=== PATIENT | female | born 1955 | race African-American/Black ===

== ENCOUNTER 2016-11-30 15:55 | Inpatient (IN) | payer MEDICAID, MEDICARE ==
[~2016-11-30] VITALS: Ht 162.6 cm; Wt 56.7 kg
[~2016-11-30 15:55] MED LIST: CINA30 PO; CLON0.1T PO; DIPH50TA19 PO; HYDR100T26 PO; LEVO150T8 PO; MINO2.5T19 PO; NEPVIT PO; SEVE800T8 PO
[2016-11-30 20:50] LABS: CHLORIDE 102 mEq/L (98-107)
[2016-11-30 20:52] LABS: BASOPHILS % 1.5 % (0.0-2.0); EOSINOPHILS % 0.6 % (0.0-5.0); HEMATOCRIT. 29.1 % (36.0-48.0); HEMOGLOBIN. 9.6 g/dL (12.0-16.0); LYMPHOCYTES % 20.3 % (20.0-50.0); MEAN CORPUSCULAR HEMOGLOBIN 28.3 pg (28.0-32.0); MEAN CORPUSCULAR VOLUME 85.7 fL (81.0-99.0); MEAN PLATELET VOLUME 8.2 fl (7.4-10.4); MONOCYTES % 12.4 % (2.0-8.0); NEUTROPHILS % 65.2 % (40.0-76.0); PLATELET 180 x1000/uL (130-400); RED BLOOD CELL COUNT 3.39 mill/uL (4.2-5.4); RED CELL DISTRIBUTION WIDTH 15.6 % (11.6-14.6)
[2016-11-30 20:53] LABS: CARBON DIOXIDE 31 mEq/L (21-32); INR 1.1; PROTHROMBIN TIME 11.3 sec (9.4-11.6)
[2016-12-01] VITALS (7 sets, daily range): BP systolic 120–156; BP diastolic 55–85
[2016-12-01] MEDS ORDERED: MORPHINE SULFATE 2 MG/ML CPJ (NOT FOR IM USE) IV PRN (00:30)
[2016-12-01] MEDS ORDERED: ACETAMINOPHEN 325MG TABLET PO PRN (00:30)
[2016-12-01] MEDS ORDERED: DIPHENHYDRAMINE 50MG/ML VIAL IV PRN (00:30)
[2016-12-01] MEDS ORDERED: HYDROCODONE/ACETAMINOPHEN 5/325MG TABLET PO PRN (00:30)
[2016-12-01] MEDS: METHYLPREDNISOLONE SOD SUCC 40 MG/ML VIAL IV SCH ×4 (06:18→23:33)
[2016-12-01] MEDS: LEVOTHYROXINE SODIUM 150MCG TABLET PO SCH (06:18)
[2016-12-01] MEDS: MORPHINE SULFATE 4 MG/ML CPJ (NOT FOR IM USE) IV PRN ×3 (06:20→23:25)
[2016-12-01 07:48] LABS: INR 1.1; PROTHROMBIN TIME 11.4 sec (9.4-11.6)
[2016-12-01 08:11] LABS: BASOPHILS % 1.2 % (0.0-2.0); EOSINOPHILS % 0.7 % (0.0-5.0); HEMOGLOBIN. 9.2 g/dL (12.0-16.0); LYMPHOCYTES % 22.8 % (20.0-50.0); MEAN CORPUSCULAR HEMOGLOBIN 28.5 pg (28.0-32.0); MEAN CORPUSCULAR VOLUME 86.8 fL (81.0-99.0); MEAN PLATELET VOLUME 8.4 fl (7.4-10.4); MONOCYTES % 10.1 % (2.0-8.0); NEUTROPHILS % 65.2 % (40.0-76.0); PLATELET 180 x1000/uL (130-400); RED BLOOD CELL COUNT 3.23 mill/uL (4.2-5.4); RED CELL DISTRIBUTION WIDTH 15.1 % (11.6-14.6)
[2016-12-01] MEDS: CLONIDINE 0.1MG TABLET PO SCH (09:39)
[2016-12-01] MEDS: FOLIC ACID/VITAMIN B COMP W-C TABLET PO SCH (09:40)
[2016-12-01] MEDS: CINACALCET HCL 30MG TABLET PO SCH (09:40)
[2016-12-01] MEDS: SEVELAMER CARBONATE 800 MG TABLET PO SCH ×3 (09:40→16:53)
[2016-12-01] MEDS: HYDRALAZINE HCL 100MG TABLET PO SCH ×3 (09:41→16:53)
[2016-12-01] MEDS: MINOXIDIL 2.5MG TABLET PO SCH (09:43)
[2016-12-01] MEDS ORDERED: VANCOMYCIN 1 G PREMIX 200 ML IV SCH (16:30)
[2016-12-01] MEDS: PANTOPRAZOLE 40MG DR TABLET PO SCH (23:25)
[2016-12-02] VITALS: BP 120/59
[2016-12-02] MEDS: MORPHINE SULFATE 4 MG/ML CPJ (NOT FOR IM USE) IV PRN ×2 (03:42→11:17)
[2016-12-02 03:45] VITALS: BP 117/52
[2016-12-02] MEDS: METHYLPREDNISOLONE SOD SUCC 40 MG/ML VIAL IV SCH ×3 (06:54→17:43)
[2016-12-02] MEDS: LEVOTHYROXINE SODIUM 150MCG TABLET PO SCH (06:54)
[2016-12-02] MEDS: PANTOPRAZOLE 40MG DR TABLET PO SCH (06:56)
[2016-12-02 07:35] LABS: MEAN CORPUSCULAR HEMOGLOBIN 28.5 pg (28.0-32.0); MEAN PLATELET VOLUME 8.6 fl (7.4-10.4); PLATELET 170 x1000/uL (130-400); RED BLOOD CELL COUNT 3.14 mill/uL (4.2-5.4); RED CELL DISTRIBUTION WIDTH 15.6 % (11.6-14.6)
[2016-12-02] MEDS: HYDRALAZINE HCL 100MG TABLET PO SCH ×3 (08:44→23:04)
[2016-12-02] MEDS: FOLIC ACID/VITAMIN B COMP W-C TABLET PO SCH (08:44)
[2016-12-02] MEDS: SEVELAMER CARBONATE 800 MG TABLET PO SCH ×3 (08:44→17:43)
[2016-12-02] MEDS: CINACALCET HCL 30MG TABLET PO SCH (08:44)
[2016-12-02 08:45] VITALS: BP 111/44
[2016-12-02] MEDS: MINOXIDIL 2.5MG TABLET PO SCH (08:45)
[2016-12-02] MEDS: CLONIDINE 0.1MG TABLET PO SCH (08:45)
[2016-12-02 11:15] VITALS: BP 148/76
[2016-12-02] MEDS ORDERED: CINACALCET HCL 60MG TABLET PO SCH (12:13)
[2016-12-02 17:19] VITALS: BP 115/46
[2016-12-02 20:00] VITALS: BP 123/50
[2016-12-02 20:08] LABS: PLATELET ESTIMATE NORMAL
[2016-12-03] VITALS: BP 112/46
[2016-12-03] MEDS: METHYLPREDNISOLONE SOD SUCC 40 MG/ML VIAL IV SCH ×3 (02:29→12:08)
[2016-12-03 04:00] VITALS: BP 116/50
[2016-12-03] MEDS: HYDRALAZINE HCL 100MG TABLET PO SCH ×2 (06:00→13:43)
[2016-12-03 08:00] VITALS: BP 111/55
[2016-12-03] MEDS: SEVELAMER CARBONATE 800 MG TABLET PO SCH ×2 (08:32→13:40)
[2016-12-03] MEDS: FOLIC ACID/VITAMIN B COMP W-C TABLET PO SCH (08:33)
[2016-12-03] MEDS ORDERED: FAMOTIDINE 20MG TABLET PO SCH (09:00)
[2016-12-03] MEDS: MINOXIDIL 2.5MG TABLET PO SCH (10:56)
[2016-12-03] MEDS: CLONIDINE 0.1MG TABLET PO SCH (10:56)
[2016-12-03] MEDS: LEVOTHYROXINE SODIUM 150MCG TABLET PO SCH (10:56)
[2016-12-03 12:00] VITALS: BP 98/51
[2016-12-03] MEDS ORDERED: VANCOMYCIN 750 MG PREMIX 150 ML IV NR (13:00)
[2016-12-03 14:48] VITALS: BP 98/51
== END 2016-12-03 15:34 | disposition home or self-care (01) | DRG 314 ==
LOC: ER 15:55 → 6EST 19:44 → ENRESERV 21:02
PROVIDERS: ADMIT Internal Medicine Nephrology; ATTEND Internal Medicine Nephrology
PROC: 5A1D00Z (ICD-10-PCS; principal; 2016-12-02)
DX: T82.7XXA Infection and inflammatory reaction due to other cardiac and vascular devices, implants and grafts, initial encounter (principal); N18.6 End stage renal disease; I13.2 Hypertensive heart and chronic kidney disease with heart failure and with stage 5 chronic kidney disease, or end stage renal disease; E46 Unspecified protein-calorie malnutrition; I50.30 Unspecified diastolic (congestive) heart failure; E03.9 Hypothyroidism, unspecified; B19.20 Unspecified viral hepatitis C without hepatic coma; D63.1 Anemia in chronic kidney disease; Y83.8 Other surgical procedures as the cause of abnormal reaction of the patient, or of later complication, without mention of misadventure at the time of the procedure; Z91.018 Allergy to other foods; Z82.49 Family history of ischemic heart disease and other diseases of the circulatory system; Z83.3 Family history of diabetes mellitus; Z82.5 Family history of asthma and other chronic lower respiratory diseases; Z99.2 Dependence on renal dialysis; Z88.0 Allergy status to penicillin; Z88.6 Allergy status to analgesic agent; Z88.8 Allergy status to other drugs, medicaments and biological substances; Z91.041 Radiographic dye allergy status; Z91.040 Latex allergy status; Z91.013 Allergy to seafood; Y92.89 Other specified places as the place of occurrence of the external cause; Z68.21 Body mass index [BMI] 21.0-21.9, adult
CPT/HCPCS: 36415; 74000; 80048; 80053; 80202; 84443; 85025; 85610; 87040; 93005; 93306; 93971; 99285; C1893; J2270; J2920; J3370; J7030

== ENCOUNTER 2016-12-28 09:29 | Inpatient (IN) | payer MEDICARE ==
[~2016-12-28] VITALS: Ht 162.6 cm; Wt 59.2 kg
[2016-12-28] MEDS ORDERED: ONDANSETRON HCL 4MG/2ML VIAL IV STA (10:29)
[2016-12-28] MEDS ORDERED: KETOROLAC 30MG/ML VIAL IV STA (10:29)
[2016-12-28 12:12] LABS: EOSINOPHILS % 1.6 % (0.0-5.0); HEMATOCRIT. 37.2 % (36.0-48.0); HEMOGLOBIN. 12.2 g/dL (12.0-16.0); LYMPHOCYTES % 23.2 % (20.0-50.0); MEAN CORPUSCULAR HEMOGLOBIN 28.8 pg (28.0-32.0); MEAN CORPUSCULAR VOLUME 88.1 fL (81.0-99.0); MEAN PLATELET VOLUME 8.2 fl (7.4-10.4); MONOCYTES % 11.4 % (2.0-8.0); NEUTROPHILS % 62.8 % (40.0-76.0); PLATELET 161 x1000/uL (130-400); RED BLOOD CELL COUNT 4.23 mill/uL (4.2-5.4); RED CELL DISTRIBUTION WIDTH 17.4 % (11.6-14.6)
[2016-12-28 12:16] LABS: CHLORIDE 107 mEq/L (98-107)
[2016-12-28 12:18] LABS: INR 1.1; PROTHROMBIN TIME 11.1 sec (9.4-11.6)
[2016-12-28 12:26] LABS: CARBON DIOXIDE 26 mEq/L (21-32)
[2016-12-28] MEDS ORDERED: SODIUM BICARBONATE 8.4% 1 MEQ/ML 50ML SYR IV ONE (12:30)
[2016-12-28] MEDS ORDERED: CALCIUM GLUCONATE 1,000 MG in DEXT 5% WATER 100 ML IV ONE (12:30)
[2016-12-28] MEDS ORDERED: INSULIN REGULAR (HUMULIN R) 300UNITS/3ML IV ONE (12:30)
[2016-12-28] MEDS ORDERED: DEXTROSE 50% WATER 50ML SYRINGE IV ONE (12:30)
[2016-12-28] MEDS: ALBUTEROL (0.083%) 2.5MG/3ML NEB HHN SCH ×3 (12:40→13:40)
[2016-12-28] MEDS ORDERED: CLONIDINE 0.1MG TABLET PO PRN (15:15)
[2016-12-28] MEDS ORDERED: ONDANSETRON HCL 4MG/2ML VIAL IV PRN (15:15)
[2016-12-28] MEDS ORDERED: ACETAMINOPHEN 325MG TABLET PO PRN (15:15)
[2016-12-28] MEDS ORDERED: CLONIDINE 0.1MG TABLET PO SCH (22:40)
[2016-12-28] MEDS ORDERED: ENOXAPARIN 30MG/0.3ML SYR SUBCUT SCH (22:44)
[2016-12-28 23:00] VITALS: BP 149/69
[2016-12-29] VITALS: BP 106/64
[2016-12-29 05:12] VITALS: BP 152/80
[2016-12-29] MEDS ORDERED: DEXTROSE 50% WATER 50ML SYRINGE IV PRN (05:45)
[2016-12-29] MEDS: INSULIN LISPRO 100 UNITS/ML SUBCUT SCH ×3 (06:00→18:00)
[2016-12-29] MEDS: CLONIDINE 0.1MG TABLET PO SCH ×3 (06:00→22:00)
[2016-12-29] MEDS: BLOOD SUGAR DIAGNOSTIC STRIP TEST SCH ×3 (06:10→18:00)
[2016-12-29] MEDS: DEXT 5%/0.45% NACL 1000ML 1,000 ML IV SCH (06:10)
[2016-12-29 06:27] LABS: BASOPHILS % 0.5 % (0.0-2.0); EOSINOPHILS % 0.2 % (0.0-5.0); HEMATOCRIT. 36.1 % (36.0-48.0); HEMOGLOBIN. 12.1 g/dL (12.0-16.0); LYMPHOCYTES % 14.3 % (20.0-50.0); MEAN CORPUSCULAR VOLUME 86.8 fL (81.0-99.0); MEAN PLATELET VOLUME 8.7 fl (7.4-10.4); MONOCYTES % 9.9 % (2.0-8.0); NEUTROPHILS % 75.1 % (40.0-76.0); PLATELET 163 x1000/uL (130-400); RED BLOOD CELL COUNT 4.16 mill/uL (4.2-5.4); RED CELL DISTRIBUTION WIDTH 17.1 % (11.6-14.6)
[2016-12-29 07:43] LABS: AMYLASE 193 IU/L (25-115); CARBON DIOXIDE 25 mEq/L (21-32); CHLORIDE 97 mEq/L (98-107)
[2016-12-29 07:51] LABS: TROPONIN I 0.02 ng/mL (0.00-0.04)
[2016-12-29 08:00] VITALS: BP 158/76
[2016-12-29] MEDS ORDERED: CLONIDINE 0.1MG TABLET PO SCH (09:00)
[2016-12-29] MEDS: ENOXAPARIN 30MG/0.3ML SYR SUBCUT SCH (09:52)
[2016-12-29 12:30] VITALS: BP 159/74
[2016-12-29 16:00] VITALS: BP 154/79
[2016-12-29] MEDS: HYDRALAZINE HCL 50MG TABLET PO SCH ×2 (18:40→22:17)
[2016-12-29 20:00] VITALS: BP 115/62
[2016-12-29] MEDS: AMLODIPINE 5MG TABLET PO SCH (22:16)
[2016-12-30] VITALS: BP 134/75
[2016-12-30] MEDS: BLOOD SUGAR DIAGNOSTIC STRIP TEST SCH ×5 (00:07→20:57)
[2016-12-30] MEDS: DEXT 5%/0.45% NACL 1000ML 1,000 ML IV SCH (00:17)
[2016-12-30 04:00] VITALS: BP 145/78
[2016-12-30] MEDS: INSULIN LISPRO 100 UNITS/ML SUBCUT SCH ×5 (06:00→20:57)
[2016-12-30] MEDS: CLONIDINE 0.1MG TABLET PO SCH ×3 (06:00→21:20)
[2016-12-30] MEDS: HYDRALAZINE HCL 50MG TABLET PO SCH ×3 (06:00→21:20)
[2016-12-30 06:15] LABS: BASOPHILS % 0.8 % (0.0-2.0); EOSINOPHILS % 1.4 % (0.0-5.0); HEMATOCRIT. 36.8 % (36.0-48.0); HEMOGLOBIN. 12.1 g/dL (12.0-16.0); MEAN CORPUSCULAR HEMOGLOBIN 28.5 pg (28.0-32.0); MEAN PLATELET VOLUME 8.8 fl (7.4-10.4); MONOCYTES % 14.9 % (2.0-8.0); NEUTROPHILS % 57.9 % (40.0-76.0); PLATELET 165 x1000/uL (130-400); RED BLOOD CELL COUNT 4.23 mill/uL (4.2-5.4)
[2016-12-30] MEDS: AMLODIPINE 5MG TABLET PO SCH ×2 (08:38→21:21)
[2016-12-30] MEDS: ENOXAPARIN 30MG/0.3ML SYR SUBCUT SCH (08:39)
[2016-12-30 09:12] VITALS: BP 148/77
[2016-12-30 12:00] VITALS: BP 126/76
[2016-12-30] MEDS: TRAMADOL 50MG TABLET PO PRN (12:22)
[2016-12-30 16:00] VITALS: BP 134/86
[2016-12-30 20:00] VITALS: BP 130/88
[2016-12-30] MEDS: DIPHENHYDRAMINE 50MG/ML VIAL IV PRN (21:21)
[2016-12-31] VITALS: BP 121/74
[2016-12-31 04:00] VITALS: BP_SYST 106; BP_SYST 121; BP_DIAS 66; BP_DIAS 74
[2016-12-31] MEDS: HYDRALAZINE HCL 50MG TABLET PO SCH ×3 (05:17→21:10)
[2016-12-31] MEDS: CLONIDINE 0.1MG TABLET PO SCH ×3 (05:18→21:09)
[2016-12-31] MEDS: BLOOD SUGAR DIAGNOSTIC STRIP TEST SCH (05:21)
[2016-12-31] MEDS: INSULIN LISPRO 100 UNITS/ML SUBCUT SCH (05:21)
[2016-12-31 06:37] LABS: HEMATOCRIT. 37.2 % (36.0-48.0); HEMOGLOBIN. 12.4 g/dL (12.0-16.0); MEAN CORPUSCULAR VOLUME 87.4 fL (81.0-99.0); MEAN PLATELET VOLUME 8.7 fl (7.4-10.4); PLATELET 154 x1000/uL (130-400); RED BLOOD CELL COUNT 4.26 mill/uL (4.2-5.4); RED CELL DISTRIBUTION WIDTH 16.7 % (11.6-14.6)
[2016-12-31 08:00] VITALS: BP 127/65
[2016-12-31] MEDS: AMLODIPINE 5MG TABLET PO SCH ×2 (09:07→21:09)
[2016-12-31] MEDS: ENOXAPARIN 30MG/0.3ML SYR SUBCUT SCH (09:07)
[2016-12-31] MEDS: TRAMADOL 50MG TABLET PO PRN ×3 (09:41→23:09)
[2016-12-31] MEDS ORDERED: SODIUM POLYSTYRENE SULFONATE 15 G/60 ML BOT PO SCH (10:15)
[2016-12-31 16:00] VITALS: BP 154/85
[2016-12-31 17:07] LABS: PLATELET ESTIMATE NORMAL
[2016-12-31] MEDS: DIPHENHYDRAMINE 50MG/ML VIAL IV PRN (19:35)
[2016-12-31 20:00] VITALS: BP 130/68
[2017-01-01] VITALS: BP 105/61
[2017-01-01] MEDS: MORPHINE SULFATE 10 MG/ML CPJ IV PRN (01:38)
[2017-01-01 08:00] VITALS: BP 148/75
[2017-01-01 09:15] LABS: HEMOGLOBIN. 12.4 g/dL (12.0-16.0); MEAN CORPUSCULAR HEMOGLOBIN 28.4 pg (28.0-32.0); MEAN CORPUSCULAR VOLUME 86.8 fL (81.0-99.0); MEAN PLATELET VOLUME 8.9 fl (7.4-10.4); PLATELET 154 x1000/uL (130-400); RED BLOOD CELL COUNT 4.38 mill/uL (4.2-5.4); RED CELL DISTRIBUTION WIDTH 16.3 % (11.6-14.6)
[2017-01-01 12:00] VITALS: BP 150/79
[2017-01-01] MEDS: AMLODIPINE 5MG TABLET PO SCH ×2 (13:42→21:11)
[2017-01-01] MEDS: CLONIDINE 0.1MG TABLET PO SCH ×3 (13:42→21:11)
[2017-01-01] MEDS: HYDRALAZINE HCL 50MG TABLET PO SCH ×3 (13:43→21:10)
[2017-01-01] MEDS: ENOXAPARIN 30MG/0.3ML SYR SUBCUT SCH (13:46)
[2017-01-01 14:27] LABS: HEMATOCRIT. 42.9 % (36.0-48.0); MEAN CORPUSCULAR HEMOGLOBIN 28.4 pg (28.0-32.0); MEAN CORPUSCULAR VOLUME 87.1 fL (81.0-99.0); MEAN PLATELET VOLUME 8.6 fl (7.4-10.4); PLATELET 132 x1000/uL (130-400); RED BLOOD CELL COUNT 4.93 mill/uL (4.2-5.4)
[2017-01-01 16:00] VITALS: BP 142/85
[2017-01-01 18:50] LABS: PLATELET ESTIMATE NORMAL
[2017-01-01 20:25] VITALS: BP 150/57
[2017-01-01] MEDS: DIPHENHYDRAMINE 50MG/ML VIAL IV PRN (21:11)
[2017-01-02 00:15] VITALS: BP 115/58
[2017-01-02 03:08] LABS: ATYPICAL LYMPHOCYTES 1; PLATELET ESTIMATE NORMAL
[2017-01-02 05:38] VITALS: BP 120/57
[2017-01-02] MEDS: HYDRALAZINE HCL 50MG TABLET PO SCH ×3 (05:52→21:46)
[2017-01-02] MEDS: CLONIDINE 0.1MG TABLET PO SCH ×3 (05:52→21:46)
[2017-01-02 06:45] LABS: HEMATOCRIT. 41.9 % (36.0-48.0); HEMOGLOBIN. 13.7 g/dL (12.0-16.0); MEAN CORPUSCULAR HEMOGLOBIN 28.4 pg (28.0-32.0); MEAN PLATELET VOLUME 8.7 fl (7.4-10.4); PLATELET 158 x1000/uL (130-400); RED BLOOD CELL COUNT 4.82 mill/uL (4.2-5.4); RED CELL DISTRIBUTION WIDTH 16.6 % (11.6-14.6)
[2017-01-02 07:42] VITALS: BP 110/56
[2017-01-02] MEDS ORDERED: DEXT 5%/0.9% NACL 1,000 ML IV SCH (08:30)
[2017-01-02] MEDS ORDERED: DEXTROSE 50% WATER 50ML SYRINGE IV PRN (08:30)
[2017-01-02] MEDS: BLOOD SUGAR DIAGNOSTIC STRIP TEST SCH ×4 (08:30→21:00)
[2017-01-02] MEDS: ENOXAPARIN 30MG/0.3ML SYR SUBCUT SCH (08:51)
[2017-01-02] MEDS: AMLODIPINE 5MG TABLET PO SCH ×2 (08:52→21:46)
[2017-01-02 09:40] LABS: PLATELET ESTIMATE NORMAL
[2017-01-02 11:57] VITALS: BP 106/57
[2017-01-02] MEDS ORDERED: DEXTROSE 10% WATER 1,000 ML IV ONE (12:45)
[2017-01-02] MEDS ORDERED: INSULIN LISPRO 100 UNITS/ML SUBCUT SCH (12:50)
[2017-01-02] MEDS: MORPHINE SULFATE 10 MG/ML CPJ IV PRN (15:37)
[2017-01-02 15:47] VITALS: BP 106/61
[2017-01-02] MEDS: DEXT 10% WATER 1,000 ML IV SCH (17:36)
[2017-01-02 20:00] VITALS: BP 104/61
[2017-01-02] MEDS: DIPHENHYDRAMINE 50MG/ML VIAL IV PRN (21:46)
[2017-01-03] VITALS: BP 140/57
[2017-01-03 04:00] VITALS: BP 150/68
[2017-01-03] MEDS: HYDRALAZINE HCL 50MG TABLET PO SCH ×2 (06:57→15:45)
[2017-01-03] MEDS: CLONIDINE 0.1MG TABLET PO SCH ×3 (06:57→22:00)
[2017-01-03] MEDS: BLOOD SUGAR DIAGNOSTIC STRIP TEST SCH ×4 (07:20→21:30)
[2017-01-03 08:13] VITALS: BP 145/67
[2017-01-03] MEDS: MORPHINE SULFATE 10 MG/ML CPJ IV PRN ×2 (08:24→17:43)
[2017-01-03] MEDS: AMLODIPINE 5MG TABLET PO SCH ×2 (08:25→21:29)
[2017-01-03] MEDS: ENOXAPARIN 30MG/0.3ML SYR SUBCUT SCH (08:32)
[2017-01-03 08:38] LABS: HEMATOCRIT. 36.7 % (36.0-48.0); HEMOGLOBIN. 12.2 g/dL (12.0-16.0); MEAN CORPUSCULAR HEMOGLOBIN 28.6 pg (28.0-32.0); MEAN CORPUSCULAR VOLUME 86.2 fL (81.0-99.0); MEAN PLATELET VOLUME 8.7 fl (7.4-10.4); PLATELET 136 x1000/uL (130-400); RED BLOOD CELL COUNT 4.25 mill/uL (4.2-5.4)
[2017-01-03 12:29] VITALS: BP 152/62
[2017-01-03] MEDS: DIPHENHYDRAMINE 50MG/ML VIAL IV PRN (13:41)
[2017-01-03 16:57] VITALS: BP 129/67
[2017-01-03 20:00] VITALS: BP 116/53
[2017-01-03] MEDS: DEXT 10% WATER 1,000 ML IV SCH (21:30)
[2017-01-03 22:49] LABS: PLATELET ESTIMATE NORMAL
[2017-01-04] MEDS: MORPHINE SULFATE 10 MG/ML CPJ IV PRN ×2 (00:01→06:11)
[2017-01-04 00:09] VITALS: BP 116/63
[2017-01-04] MEDS: DIPHENHYDRAMINE 50MG/ML VIAL IV PRN (02:20)
[2017-01-04 04:00] VITALS: BP 124/65
[2017-01-04] MEDS: CLONIDINE 0.1MG TABLET PO SCH ×2 (06:09→15:33)
[2017-01-04] MEDS: HYDRALAZINE HCL 50MG TABLET PO SCH ×3 (06:09→15:34)
[2017-01-04] MEDS: BLOOD SUGAR DIAGNOSTIC STRIP TEST SCH ×2 (06:20→12:20)
[2017-01-04 06:55] LABS: HEMATOCRIT. 36.7 % (36.0-48.0); HEMOGLOBIN. 12.2 g/dL (12.0-16.0); MEAN CORPUSCULAR HEMOGLOBIN 28.8 pg (28.0-32.0); MEAN CORPUSCULAR VOLUME 86.4 fL (81.0-99.0); MEAN PLATELET VOLUME 8.6 fl (7.4-10.4); PLATELET 117 x1000/uL (130-400); RED BLOOD CELL COUNT 4.25 mill/uL (4.2-5.4); RED CELL DISTRIBUTION WIDTH 15.7 % (11.6-14.6)
[2017-01-04 08:50] VITALS: BP 157/67
[2017-01-04] MEDS: ENOXAPARIN 30MG/0.3ML SYR SUBCUT SCH (09:06)
[2017-01-04] MEDS: AMLODIPINE 5MG TABLET PO SCH (09:06)
[2017-01-04 13:32] VITALS: BP 143/68
[2017-01-04 14:31] LABS: PLATELET ESTIMATE DECREASED
[2017-01-04 16:07] VITALS: BP 177/72
[2017-01-04 16:54] VITALS: BP 177/72
== END 2017-01-04 17:45 | disposition home or self-care (01) | DRG 438 ==
LOC: ER 10:25 → 6WST 12:39 → ENRESERV 17:58 → 6WST 22:35
PROVIDERS: ADMIT Internal Medicine Nephrology; ATTEND Internal Medicine Nephrology
PROC: 5A1D70Z Performance of Urinary Filtration, Intermittent, Less than 6 Hours Per Day (ICD-10-PCS; principal; 2016-12-29)
PROC: 5A1D70Z Performance of Urinary Filtration, Intermittent, Less than 6 Hours Per Day (ICD-10-PCS; 2016-12-30)
PROC: 5A1D70Z Performance of Urinary Filtration, Intermittent, Less than 6 Hours Per Day (ICD-10-PCS; 2017-01-01)
PROC: 5A1D70Z Performance of Urinary Filtration, Intermittent, Less than 6 Hours Per Day (ICD-10-PCS; 2017-01-03)
DX: K85.90 Acute pancreatitis without necrosis or infection, unspecified (principal); N18.6 End stage renal disease; I13.2 Hypertensive heart and chronic kidney disease with heart failure and with stage 5 chronic kidney disease, or end stage renal disease; K74.60 Unspecified cirrhosis of liver; E87.5 Hyperkalemia; Z99.2 Dependence on renal dialysis; E03.9 Hypothyroidism, unspecified; D63.1 Anemia in chronic kidney disease; E16.2 Hypoglycemia, unspecified; B19.20 Unspecified viral hepatitis C without hepatic coma; D25.9 Leiomyoma of uterus, unspecified; I50.9 Heart failure, unspecified; Z88.0 Allergy status to penicillin; Z88.6 Allergy status to analgesic agent; Z88.8 Allergy status to other drugs, medicaments and biological substances; Z91.013 Allergy to seafood; Z91.010 Allergy to peanuts; Z91.048 Other nonmedicinal substance allergy status; Z91.041 Radiographic dye allergy status; Z91.14 Patient's other noncompliance with medication regimen; Z82.49 Family history of ischemic heart disease and other diseases of the circulatory system; Z82.5 Family history of asthma and other chronic lower respiratory diseases; Z83.3 Family history of diabetes mellitus; Z82.69 Family history of other diseases of the musculoskeletal system and connective tissue; Z84.1 Family history of disorders of kidney and ureter
CPT/HCPCS: 36415; 74176; 80048; 80053; 82150; 82962; 83690; 84132; 84443; 84484; 85025; 85610; 87040; 93005; 93970; 94640; 96365; 96375; 99291; C1893; J0610; J1200; J1650; J1815; J1885; J2270; J2405; J3490; J7030; J7042; J7060; J7611

== ENCOUNTER 2017-02-05 16:48 | Inpatient (IN) | payer MEDICARE ==
[~2017-02-05] VITALS: Ht 162.6 cm; Wt 56.7 kg
[2017-02-05] MEDS ORDERED: ACETAMINOPHEN 325MG TABLET PO STA (22:30)
[2017-02-05] MEDS ORDERED: CEFEPIME 1,000 MG in DEXTROSE 5% WATER 50 ML IV STA (23:05)
[2017-02-05] MEDS ORDERED: VANCOMYCIN 1 G PREMIX 200 ML IV ONE (23:15)
[2017-02-06] VITALS (9 sets, daily range): BP systolic 87–182; BP diastolic 37–101
[2017-02-06 00:22] LABS: INR 1.2
[2017-02-06 00:23] LABS: CHLORIDE 97 mEq/L (98-107)
[2017-02-06 00:29] LABS: BASOPHILS % 0.8 % (0.0-2.0); EOSINOPHILS % 0.5 % (0.0-5.0); HEMATOCRIT. 34.9 % (36.0-48.0); HEMOGLOBIN. 11.3 g/dL (12.0-16.0); LYMPHOCYTES % 9.3 % (20.0-50.0); MEAN CORPUSCULAR HEMOGLOBIN 27.2 pg (28.0-32.0); MEAN CORPUSCULAR VOLUME 84.4 fL (81.0-99.0); MEAN PLATELET VOLUME 7.7 fl (7.4-10.4); MONOCYTES % 9.7 % (2.0-8.0); NEUTROPHILS % 79.7 % (40.0-76.0); PLATELET 263 x1000/uL (130-400); RED BLOOD CELL COUNT 4.14 mill/uL (4.2-5.4); RED CELL DISTRIBUTION WIDTH 14.8 % (11.6-14.6)
[2017-02-06 00:37] LABS: CARBON DIOXIDE 27 mEq/L (21-32)
[2017-02-06] MEDS ORDERED: ENOXAPARIN 40MG/0.4ML SYR SUBCUT SCH (01:00)
[2017-02-06] MEDS ORDERED: ONDANSETRON HCL 4MG/2ML VIAL IV PRN (01:00)
[2017-02-06] MEDS ORDERED: IPRATROPIUM/ALBUTEROL 0.5-3(2.5)MG/3ML NEB INH PRN (01:00)
[2017-02-06] MEDS ORDERED: CLONIDINE 0.1MG TABLET PO PRN (01:00)
[2017-02-06] MEDS ORDERED: ACETAMINOPHEN 325MG TABLET PO PRN (01:00)
[2017-02-06] MEDS ORDERED: DIPHENHYDRAMINE HCL 50 MG PO PRN (04:30)
[2017-02-06] MEDS ORDERED: HYDROCODONE/ACETAMINOPHEN 5/325MG TABLET PO PRN (04:45)
[2017-02-06] MEDS ORDERED: HYDROMORPHONE HCL/PF 2MG/ML CPJ IV PRN (04:45)
[2017-02-06] MEDS ORDERED: DIPHENHYDRAMINE 50MG CAPSULE PO PRN (05:00)
[2017-02-06] MEDS: HYDRALAZINE HCL 100MG TABLET PO SCH ×3 (06:10→22:00)
[2017-02-06] MEDS: LEVOTHYROXINE SODIUM 150MCG TABLET PO SCH (06:11)
[2017-02-06] MEDS ORDERED: MORPHINE SULFATE 2 MG/ML CPJ (NOT FOR IM USE) IV PRN (07:15)
[2017-02-06] MEDS: SEVELAMER CARBONATE 800 MG TABLET PO SCH ×3 (07:34→17:49)
[2017-02-06] MEDS ORDERED: FOLIC ACID/VITAMIN B COMP W-C TABLET PO SCH (09:00)
[2017-02-06] MEDS ORDERED: CLONIDINE 0.1MG TABLET PO SCH (09:00)
[2017-02-06] MEDS: CINACALCET HCL 30MG TABLET PO SCH (09:20)
[2017-02-06] MEDS: MINOXIDIL 10MG TABLET PO SCH (09:21)
[2017-02-06] MEDS: ENOXAPARIN 30MG/0.3ML SYR SUBCUT SCH (09:22)
[2017-02-06] MEDS: FOLIC ACID/VITAMIN B COMP W-C TABLET PO SCH (10:05)
[2017-02-06 10:24] LABS: BASOPHILS % 0.8 % (0.0-2.0); EOSINOPHILS % 0.5 % (0.0-5.0); HEMATOCRIT. 35.7 % (36.0-48.0); HEMOGLOBIN. 11.6 g/dL (12.0-16.0); LYMPHOCYTES % 10.2 % (20.0-50.0); MEAN CORPUSCULAR HEMOGLOBIN 27.5 pg (28.0-32.0); MEAN CORPUSCULAR VOLUME 84.7 fL (81.0-99.0); MEAN PLATELET VOLUME 8.1 fl (7.4-10.4); MONOCYTES % 9.7 % (2.0-8.0); NEUTROPHILS % 78.8 % (40.0-76.0); PLATELET 266 x1000/uL (130-400); RED BLOOD CELL COUNT 4.22 mill/uL (4.2-5.4); RED CELL DISTRIBUTION WIDTH 14.8 % (11.6-14.6)
[2017-02-06] MEDS ORDERED: LEVOFLOXACIN 250MG PREMIX 50 ML IV SCH (11:00)
[2017-02-06] MEDS: MORPHINE SULFATE 10 MG/ML CPJ IV PRN ×2 (15:09→20:16)
[2017-02-06] MEDS: CLONIDINE 0.3MG TABLET PO SCH (17:00)
[2017-02-07] VITALS: BP 99/44
[2017-02-07] MEDS: MORPHINE SULFATE 10 MG/ML CPJ IV PRN ×4 (00:26→23:04)
[2017-02-07 04:00] VITALS: BP 124/54
[2017-02-07] MEDS: HYDRALAZINE HCL 100MG TABLET PO SCH ×3 (05:07→21:14)
[2017-02-07] MEDS: SEVELAMER CARBONATE 800 MG TABLET PO SCH ×3 (06:41→17:55)
[2017-02-07] MEDS: LEVOTHYROXINE SODIUM 150MCG TABLET PO SCH (06:41)
[2017-02-07 07:28] VITALS: BP 105/54
[2017-02-07 07:40] LABS: BASOPHILS % 0.7 % (0.0-2.0); EOSINOPHILS % 0.6 % (0.0-5.0); HEMATOCRIT. 35.1 % (36.0-48.0); HEMOGLOBIN. 11.2 g/dL (12.0-16.0); LYMPHOCYTES % 11.7 % (20.0-50.0); MEAN CORPUSCULAR HEMOGLOBIN 27.1 pg (28.0-32.0); MEAN CORPUSCULAR VOLUME 84.7 fL (81.0-99.0); MEAN PLATELET VOLUME 8.2 fl (7.4-10.4); MONOCYTES % 13.9 % (2.0-8.0); NEUTROPHILS % 73.1 % (40.0-76.0); PLATELET 271 x1000/uL (130-400); RED BLOOD CELL COUNT 4.15 mill/uL (4.2-5.4); RED CELL DISTRIBUTION WIDTH 15.2 % (11.6-14.6)
[2017-02-07] MEDS: CLONIDINE 0.3MG TABLET PO SCH ×2 (08:13→17:00)
[2017-02-07] MEDS: MINOXIDIL 10MG TABLET PO SCH (08:21)
[2017-02-07] MEDS: CINACALCET HCL 30MG TABLET PO SCH (08:21)
[2017-02-07] MEDS: FOLIC ACID/VITAMIN B COMP W-C TABLET PO SCH (08:21)
[2017-02-07] MEDS: ENOXAPARIN 30MG/0.3ML SYR SUBCUT SCH (08:21)
[2017-02-07 09:33] LABS: TROPONIN I 2.9 ng/mL (0.00-0.04)
[2017-02-07 12:17] VITALS: BP 138/50
[2017-02-07] MEDS: HYDROMORPHONE HCL/PF 2MG/ML CPJ IV NR ×2 (12:26→14:50)
[2017-02-07] MEDS: DIPHENHYDRAMINE 50MG/ML VIAL IV PRN (14:40)
[2017-02-07 16:00] VITALS: BP 101/41
[2017-02-07] MEDS: HYDROMORPHONE HCL/PF 2MG/ML CPJ IV PRN (19:02)
[2017-02-07 20:00] VITALS: BP 101/80
[2017-02-07] MEDS ORDERED: VANCOMYCIN 1 G PREMIX 200 ML IV NR (20:00)
[2017-02-08] VITALS (7 sets, daily range): BP systolic 99–120; BP diastolic 46–64
[2017-02-08] MEDS ORDERED: VANCOMYCIN 1 G PREMIX 200 ML IV SCH (01:00)
[2017-02-08] MEDS: HYDROMORPHONE HCL/PF 2MG/ML CPJ IV PRN ×3 (02:23→23:38)
[2017-02-08] MEDS: MORPHINE SULFATE 10 MG/ML CPJ IV PRN (05:50)
[2017-02-08] MEDS: HYDRALAZINE HCL 100MG TABLET PO SCH ×3 (06:00→20:42)
[2017-02-08] MEDS: LEVOTHYROXINE SODIUM 150MCG TABLET PO SCH (06:37)
[2017-02-08 07:27] LABS: BASOPHILS % 0.6 % (0.0-2.0); EOSINOPHILS % 0.9 % (0.0-5.0); HEMOGLOBIN. 12.5 g/dL (12.0-16.0); LYMPHOCYTES % 14.1 % (20.0-50.0); MEAN CORPUSCULAR HEMOGLOBIN 27.3 pg (28.0-32.0); MEAN CORPUSCULAR VOLUME 85.4 fL (81.0-99.0); MEAN PLATELET VOLUME 7.9 fl (7.4-10.4); MONOCYTES % 14.5 % (2.0-8.0); NEUTROPHILS % 69.9 % (40.0-76.0); PLATELET 300 x1000/uL (130-400); RED BLOOD CELL COUNT 4.57 mill/uL (4.2-5.4); RED CELL DISTRIBUTION WIDTH 14.8 % (11.6-14.6)
[2017-02-08 08:40] LABS: TROPONIN I 4.6 ng/mL (0.00-0.04)
[2017-02-08] MEDS: CLONIDINE 0.3MG TABLET PO SCH ×2 (09:00→16:22)
[2017-02-08] MEDS: SEVELAMER CARBONATE 800 MG TABLET PO SCH ×3 (09:09→17:01)
[2017-02-08] MEDS: CINACALCET HCL 30MG TABLET PO SCH (09:09)
[2017-02-08] MEDS: FOLIC ACID/VITAMIN B COMP W-C TABLET PO SCH (09:10)
[2017-02-08] MEDS: MINOXIDIL 10MG TABLET PO SCH (09:10)
[2017-02-08] MEDS: ENOXAPARIN 30MG/0.3ML SYR SUBCUT SCH (09:10)
[2017-02-08 12:50] LABS: INR 1.2; PARTIAL THROMBOPLASTIN TIME 31.5 sec (23.4-31.0); PROTHROMBIN TIME 12.7 sec (9.4-11.6)
[2017-02-08] MEDS ORDERED: LIDOCAINE HCL 1% 20ML VIAL (Pyxis) INJ ONE (14:10)
[2017-02-08] MEDS ORDERED: SODIUM BICARBONATE 4% (2.4MEQ) 5ML VIAL IV ONE (14:10)
[2017-02-08] MEDS: DIPHENHYDRAMINE 50MG/ML VIAL IV PRN ×2 (16:00→20:33)
[2017-02-08] MEDS: CEFAZOLIN 2,000 MG in DEXT 5% WATER 100 ML IV SCH (17:01)
[2017-02-09] VITALS: BP 131/55
[2017-02-09 04:00] VITALS: BP 116/55
[2017-02-09] MEDS: DIPHENHYDRAMINE 50MG/ML VIAL IV PRN ×2 (05:21→09:13)
[2017-02-09] MEDS: HYDROMORPHONE HCL/PF 2MG/ML CPJ IV PRN ×3 (05:22→17:23)
[2017-02-09] MEDS: HYDRALAZINE HCL 100MG TABLET PO SCH ×3 (05:40→21:15)
[2017-02-09] MEDS: LEVOTHYROXINE SODIUM 150MCG TABLET PO SCH (06:16)
[2017-02-09 06:20] LABS: BASOPHILS % 0.9 % (0.0-2.0); EOSINOPHILS % 2.1 % (0.0-5.0); HEMATOCRIT. 34.8 % (36.0-48.0); LYMPHOCYTES % 17.6 % (20.0-50.0); MEAN CORPUSCULAR HEMOGLOBIN 27.1 pg (28.0-32.0); MEAN CORPUSCULAR VOLUME 85.4 fL (81.0-99.0); MEAN PLATELET VOLUME 7.7 fl (7.4-10.4); MONOCYTES % 11.5 % (2.0-8.0); NEUTROPHILS % 67.9 % (40.0-76.0); PLATELET 245 x1000/uL (130-400); RED BLOOD CELL COUNT 4.08 mill/uL (4.2-5.4); RED CELL DISTRIBUTION WIDTH 15.1 % (11.6-14.6)
[2017-02-09] MEDS: SEVELAMER CARBONATE 800 MG TABLET PO SCH ×3 (07:40→17:22)
[2017-02-09 08:00] VITALS: BP 99/53
[2017-02-09] MEDS: FOLIC ACID/VITAMIN B COMP W-C TABLET PO SCH (08:38)
[2017-02-09] MEDS: CLONIDINE 0.3MG TABLET PO SCH ×2 (08:38→17:00)
[2017-02-09] MEDS: CINACALCET HCL 30MG TABLET PO SCH (08:38)
[2017-02-09] MEDS: MINOXIDIL 10MG TABLET PO SCH (08:39)
[2017-02-09] MEDS ORDERED: REGADENOSON 0.4 MG/5 ML IV ONE (11:30)
[2017-02-09 12:00] VITALS: BP 103/58
[2017-02-09] MEDS: CEFAZOLIN 2,000 MG in DEXT 5% WATER 100 ML IV SCH (15:03)
[2017-02-09] MEDS: ENOXAPARIN 30MG/0.3ML SYR SUBCUT SCH (15:04)
[2017-02-09 16:00] VITALS: BP 99/61
[2017-02-09 20:21] VITALS: BP 160/80
[2017-02-09] MEDS: MORPHINE SULFATE 10 MG/ML CPJ IV PRN (20:26)
[2017-02-10 00:05] VITALS: BP 158/59
[2017-02-10] MEDS: HYDROMORPHONE HCL/PF 2MG/ML CPJ IV PRN ×2 (00:07→10:03)
[2017-02-10 03:37] VITALS: BP 126/59
[2017-02-10] MEDS: MORPHINE SULFATE 10 MG/ML CPJ IV PRN ×2 (03:39→12:53)
[2017-02-10] MEDS: HYDRALAZINE HCL 100MG TABLET PO SCH ×2 (05:04→12:47)
[2017-02-10] MEDS: LEVOTHYROXINE SODIUM 150MCG TABLET PO SCH (06:23)
[2017-02-10 06:24] LABS: BASOPHILS % 1.5 % (0.0-2.0); EOSINOPHILS % 1.4 % (0.0-5.0); HEMATOCRIT. 35.9 % (36.0-48.0); HEMOGLOBIN. 11.5 g/dL (12.0-16.0); LYMPHOCYTES % 18.8 % (20.0-50.0); MEAN CORPUSCULAR HEMOGLOBIN 27.4 pg (28.0-32.0); MEAN CORPUSCULAR VOLUME 85.8 fL (81.0-99.0); MEAN PLATELET VOLUME 7.9 fl (7.4-10.4); MONOCYTES % 12.7 % (2.0-8.0); NEUTROPHILS % 65.6 % (40.0-76.0); PLATELET 252 x1000/uL (130-400); RED BLOOD CELL COUNT 4.18 mill/uL (4.2-5.4); RED CELL DISTRIBUTION WIDTH 15.2 % (11.6-14.6)
[2017-02-10 08:00] VITALS: BP 153/60
[2017-02-10] MEDS ORDERED: REGADENOSON 0.4 MG/5 ML IV ONE (08:43)
[2017-02-10] MEDS: CLONIDINE 0.3MG TABLET PO SCH (09:00)
[2017-02-10] MEDS: FOLIC ACID/VITAMIN B COMP W-C TABLET PO SCH (10:03)
[2017-02-10] MEDS: CINACALCET HCL 30MG TABLET PO SCH (10:03)
[2017-02-10] MEDS: ENOXAPARIN 30MG/0.3ML SYR SUBCUT SCH (10:04)
[2017-02-10] MEDS: SEVELAMER CARBONATE 800 MG TABLET PO SCH ×2 (10:04→12:53)
[2017-02-10] MEDS: MINOXIDIL 10MG TABLET PO SCH (10:04)
[2017-02-10 12:03] VITALS: BP 109/35
[2017-02-10 12:22] VITALS: BP 109/35
[2017-02-11] MEDS ORDERED: CINACALCET HCL 60MG TABLET PO SCH (09:00)
== END 2017-02-10 14:53 | DRG 871 ==
LOC: ER 18:54 → 8WST 23:11 → ENRESERV 02-06 00:26 → 8WST 02-07 12:52
PROVIDERS: ADMIT Internal Medicine Nephrology; ATTEND Internal Medicine Nephrology
PROC: 5A1D70Z Performance of Urinary Filtration, Intermittent, Less than 6 Hours Per Day (ICD-10-PCS; 2017-02-07)
PROC: 02HV33Z Insertion of Infusion Device into Superior Vena Cava, Percutaneous Approach (ICD-10-PCS; principal; 2017-02-08)
PROC: B548ZZA Ultrasonography of Superior Vena Cava, Guidance (ICD-10-PCS; 2017-02-08)
PROC: B5181ZA Fluoroscopy of Superior Vena Cava using Low Osmolar Contrast, Guidance (ICD-10-PCS; 2017-02-08)
PROC: 5A1D70Z Performance of Urinary Filtration, Intermittent, Less than 6 Hours Per Day (ICD-10-PCS; 2017-02-09)
DX: A41.01 Sepsis due to Methicillin susceptible Staphylococcus aureus (principal); N18.6 End stage renal disease; I13.2 Hypertensive heart and chronic kidney disease with heart failure and with stage 5 chronic kidney disease, or end stage renal disease; M48.04 Spinal stenosis, thoracic region; N28.1 Cyst of kidney, acquired; N25.0 Renal osteodystrophy; I50.9 Heart failure, unspecified; D64.9 Anemia, unspecified; E03.9 Hypothyroidism, unspecified; R91.1 Solitary pulmonary nodule; M54.2 Cervicalgia; M51.16 Intervertebral disc disorders with radiculopathy, lumbar region; Z82.49 Family history of ischemic heart disease and other diseases of the circulatory system; Z82.5 Family history of asthma and other chronic lower respiratory diseases; Z83.3 Family history of diabetes mellitus; Z88.0 Allergy status to penicillin; Z99.2 Dependence on renal dialysis; Z88.8 Allergy status to other drugs, medicaments and biological substances; Z88.6 Allergy status to analgesic agent; Z91.041 Radiographic dye allergy status; Z91.040 Latex allergy status; Z79.899 Other long term (current) drug therapy; Z86.19 Personal history of other infectious and parasitic diseases
CPT/HCPCS: 36415; 36569; 71250; 72125; 72141; 72146; 72148; 76937; 77001; 78452; 80048; 80053; 80202; 83605; 84443; 84484; 85025; 85610; 85651; 85730; 86140; 87040; 87077; 93005; 93017; 93306; 93971; 96374; 96375; 99285; A9500; C1893; J0690; J0692; J1170; J1200; J1650; J1956; J2270; J2785; J3370; J3490; J7030; J7040; J7060

== ENCOUNTER 2017-07-08 12:00 | Inpatient (IN) | payer MEDICARE ==
[~2017-07-08] VITALS: Ht 162.6 cm; Wt 58.1 kg
[2017-07-08 12:15] VITALS: BP 147/75
[2017-07-08] MEDS ORDERED: ONDANSETRON HCL 4MG/2ML VIAL IV PRN (13:15)
[2017-07-08] MEDS ORDERED: ACETAMINOPHEN 325MG TABLET PO PRN (13:15)
[2017-07-08] MEDS ORDERED: DOCUSATE SODIUM 100MG CAPSULE PO PRN (13:15)
[2017-07-08] MEDS ORDERED: CLONIDINE 0.1MG TABLET PO PRN (13:15)
[2017-07-08] MEDS ORDERED: LIDOCAINE HCL/PF 1% 10 MG/ML 5ML VIAL ONE (14:06)
[2017-07-08] MEDS ORDERED: SODIUM BICARBONATE 4% (2.4MEQ) 5ML VIAL IV ONE (14:06)
[2017-07-08 14:40] VITALS: BP 147/75
[2017-07-08] MEDS: CLONIDINE 0.3MG TABLET PO SCH ×2 (15:00→22:18)
[2017-07-08] MEDS: HYDRALAZINE HCL 100MG TABLET PO SCH ×2 (15:00→22:20)
[2017-07-08] MEDS ORDERED: LEVOTHYROXINE SODIUM 75MCG TABLET PO SCH (15:00)
[2017-07-08] MEDS ORDERED: METO25TA6 MT (15:21)
[2017-07-08] MEDS ORDERED: IPRATROPIUM/ALBUTEROL 0.5-3(2.5)MG/3ML NEB HHN PRN (15:30)
[2017-07-08 15:42] LABS: HEMATOCRIT. 32.3 % (36.0-48.0); HEMOGLOBIN. 10.7 g/dL (12.0-16.0); MEAN CORPUSCULAR HEMOGLOBIN 27.9 pg (28.0-32.0); MEAN CORPUSCULAR VOLUME 84.1 fL (81.0-99.0); MEAN PLATELET VOLUME 7.9 fl (7.4-10.4); PLATELET 153 x1000/uL (130-400); RED BLOOD CELL COUNT 3.83 mill/uL (4.2-5.4); RED CELL DISTRIBUTION WIDTH 18.9 % (11.6-14.6)
[2017-07-08 15:59] VITALS: BP 149/58
[2017-07-08] MEDS: MINOXIDIL 2.5MG TABLET PO SCH (16:00)
[2017-07-08 16:02] LABS: INR 1.1; PROTHROMBIN TIME 11.7 sec (9.4-11.6)
[2017-07-08] MEDS: IPRATROPIUM/ALBUTEROL 0.5-3(2.5)MG/3ML NEB INH SCH ×2 (16:30→20:47)
[2017-07-08 16:51] LABS: PLATELET ESTIMATE NORMAL
[2017-07-08] MEDS ORDERED: VANCOMYCIN 1,250 MG in SODIUM CHLORIDE 0.9% 250 ML IV NR (17:00)
[2017-07-08] MEDS ORDERED: VANCOMYCIN 1,250 MG in DEXT 5% WATER 250 ML IV NR (17:00)
[2017-07-08] MEDS: FOLIC ACID/VITAMIN B COMP W-C TABLET PO SCH (17:11)
[2017-07-08] MEDS: SEVELAMER CARBONATE 800 MG TABLET PO SCH (17:12)
[2017-07-08] MEDS: CINACALCET HCL 60MG TABLET PO SCH (17:12)
[2017-07-08] MEDS: HYDROCODONE/ACETAMINOPHEN 5/325MG TABLET PO PRN ×2 (17:18→23:27)
[2017-07-08] MEDS ORDERED: HEPARIN SODIUM 1,000 UNIT/1ML VIAL IV NR (18:45)
[2017-07-08 21:30] VITALS: BP 138/76
[2017-07-08] MEDS: FAMOTIDINE 20MG TABLET PO SCH ×2 (21:47→21:50)
[2017-07-08 23:20] VITALS: BP 146/68
[2017-07-09] MEDS ORDERED: VANCOMYCIN 1,250 MG in DEXT 5% WATER 250 ML IV NR (01:00)
[2017-07-09] MEDS: IPRATROPIUM/ALBUTEROL 0.5-3(2.5)MG/3ML NEB INH SCH ×4 (01:26→22:00)
[2017-07-09 03:45] VITALS: BP 117/60
[2017-07-09] MEDS: CLONIDINE 0.3MG TABLET PO SCH ×3 (06:18→22:00)
[2017-07-09] MEDS: HYDRALAZINE HCL 100MG TABLET PO SCH ×3 (06:21→22:00)
[2017-07-09] MEDS: LEVOTHYROXINE SODIUM 150MCG TABLET PO SCH (06:22)
[2017-07-09 06:54] LABS: HEMATOCRIT. 31.4 % (36.0-48.0); HEMOGLOBIN. 10.1 g/dL (12.0-16.0); MEAN CORPUSCULAR HEMOGLOBIN 26.9 pg (28.0-32.0); MEAN CORPUSCULAR VOLUME 83.5 fL (81.0-99.0); MEAN PLATELET VOLUME 8.1 fl (7.4-10.4); PLATELET 189 x1000/uL (130-400); RED BLOOD CELL COUNT 3.76 mill/uL (4.2-5.4); RED CELL DISTRIBUTION WIDTH 18.3 % (11.6-14.6)
[2017-07-09 07:38] LABS: CHLORIDE 99 mEq/L (98-107)
[2017-07-09] MEDS: SEVELAMER CARBONATE 800 MG TABLET PO SCH ×3 (07:49→18:43)
[2017-07-09] MEDS: CINACALCET HCL 60MG TABLET PO SCH (07:50)
[2017-07-09] MEDS ORDERED: SODIUM BICARBONATE 8.4% 1 MEQ/ML 50ML SYR IV NR (08:30)
[2017-07-09] MEDS ORDERED: INSULIN REGULAR (HUMULIN R) UD 100 UNITS/ML SYR IV NR (08:30)
[2017-07-09] MEDS ORDERED: DEXTROSE 50% WATER 50ML SYRINGE IV NR (08:30)
[2017-07-09] MEDS ORDERED: ALBUTEROL (0.083%) 2.5MG/3ML NEB HHN NR (08:30)
[2017-07-09] MEDS: MINOXIDIL 2.5MG TABLET PO SCH (08:52)
[2017-07-09] MEDS: FOLIC ACID/VITAMIN B COMP W-C TABLET PO SCH (09:00)
[2017-07-09 11:58] VITALS: BP 129/70
[2017-07-09] MEDS ORDERED: PROPOFOL 200MG/20ML VIAL IV ONE (14:50)
[2017-07-09] MEDS ORDERED: LIDOCAINE HCL/PF 1% 10 MG/ML 5ML VIAL ONE ×2 (14:51→15:38)
[2017-07-09] MEDS ORDERED: GELATIN SPONGE,ABSORBABLE 12-7MM SPONGE ONE ×2 (14:51→15:45)
[2017-07-09] MEDS ORDERED: NORMAL SALINE 0.9% 10 ML SYR ONE (14:52)
[2017-07-09] MEDS ORDERED: BUPIVACAINE HCL/PF 0.5% (5MG/ML) 10ML ONE (14:52)
[2017-07-09] MEDS ORDERED: THROMBIN (BOVINE) 5000 UNITS/VIAL TOP ONE (14:52)
[2017-07-09] MEDS ORDERED: BACITRACIN 50,000 UNITS/VIAL ONE (14:53)
[2017-07-09] MEDS ORDERED: HEPARIN SODIUM 1,000 UNIT/1ML VIAL IV ONE (15:00)
[2017-07-09] MEDS ORDERED: HYDROMORPHONE HCL/PF 2MG/ML (OR) ONE (15:22)
[2017-07-09] MEDS ORDERED: HEPARIN 1000 UNITS/ML 10ML ONE (15:38)
[2017-07-09] MEDS ORDERED: PROTAMINE SULFATE 10MG/ML VIAL 5ML IV ONE (15:59)
[2017-07-09] MEDS ORDERED: MORPHINE SULFATE 4 MG/ML CPJ (NOT FOR IM USE) IV PRN (16:15)
[2017-07-09] MEDS ORDERED: EPHEDRINE SULFATE 50MG/ML VIAL ONE (16:23)
[2017-07-09] MEDS ORDERED: HYDROMORPHONE HCL/PF 2MG/ML CPJ IV PRN (16:30)
[2017-07-09] MEDS ORDERED: ONDANSETRON HCL 4MG/2ML VIAL IM NR (16:30)
[2017-07-09] MEDS ORDERED: EPHEDRINE SULFATE 50MG/ML VIAL IV PRN (16:30)
[2017-07-09 18:12] VITALS: BP 137/80
[2017-07-09] MEDS: HYDROCODONE/ACETAMINOPHEN 5/325MG TABLET PO PRN (18:44)
[2017-07-09 20:00] VITALS: BP 109/55
[2017-07-09] MEDS: FAMOTIDINE 20MG TABLET PO SCH (20:42)
[2017-07-10] VITALS: BP 113/60
[2017-07-10] MEDS: IPRATROPIUM/ALBUTEROL 0.5-3(2.5)MG/3ML NEB INH SCH ×4 (03:44→21:43)
[2017-07-10 04:00] VITALS: BP 124/67
[2017-07-10] MEDS: HYDROCODONE/ACETAMINOPHEN 5/325MG TABLET PO PRN ×3 (04:01→18:07)
[2017-07-10] MEDS: CLONIDINE 0.3MG TABLET PO SCH ×3 (06:00→21:20)
[2017-07-10] MEDS: HYDRALAZINE HCL 100MG TABLET PO SCH ×3 (06:00→21:20)
[2017-07-10] MEDS: LEVOTHYROXINE SODIUM 150MCG TABLET PO SCH (06:23)
[2017-07-10 06:50] LABS: EOSINOPHILS % 6.6 % (0.0-5.0); HEMATOCRIT. 31.6 % (36.0-48.0); HEMOGLOBIN. 10.2 g/dL (12.0-16.0); LYMPHOCYTES % 21.5 % (20.0-50.0); MEAN CORPUSCULAR HEMOGLOBIN 27.4 pg (28.0-32.0); MEAN CORPUSCULAR VOLUME 84.5 fL (81.0-99.0); MEAN PLATELET VOLUME 8.4 fl (7.4-10.4); NEUTROPHILS % 56.9 % (40.0-76.0); PLATELET 158 x1000/uL (130-400); RED BLOOD CELL COUNT 3.73 mill/uL (4.2-5.4); RED CELL DISTRIBUTION WIDTH 18.6 % (11.6-14.6)
[2017-07-10 08:00] VITALS: BP 115/81
[2017-07-10 08:15] LABS: PHOSPHORUS 6.7 mg/dL (2.5-4.9)
[2017-07-10] MEDS: FOLIC ACID/VITAMIN B COMP W-C TABLET PO SCH (08:39)
[2017-07-10] MEDS: CINACALCET HCL 60MG TABLET PO SCH (08:39)
[2017-07-10] MEDS: SEVELAMER CARBONATE 800 MG TABLET PO SCH ×3 (08:39→18:07)
[2017-07-10] MEDS: MINOXIDIL 2.5MG TABLET PO SCH (08:40)
[2017-07-10 12:00] VITALS: BP 102/58
[2017-07-10 16:00] VITALS: BP_SYST 105; BP_SYST 90; BP_DIAS 46; BP_DIAS 53
[2017-07-10] MEDS ORDERED: SODIUM POLYSTYRENE SULFONATE 15 G/60 ML BOT PO NR (18:51)
[2017-07-10 20:00] VITALS: BP 125/61
[2017-07-10] MEDS: FAMOTIDINE 20MG TABLET PO SCH (21:20)
[2017-07-11] VITALS: BP 127/65
[2017-07-11 01:17] LABS: PLATELET ESTIMATE NORMAL
[2017-07-11] MEDS: IPRATROPIUM/ALBUTEROL 0.5-3(2.5)MG/3ML NEB INH SCH ×3 (03:17→22:14)
[2017-07-11 04:00] VITALS: BP 128/60
[2017-07-11 05:57] LABS: EOSINOPHILS % 8.9 % (0.0-5.0); HEMATOCRIT. 31.6 % (36.0-48.0); HEMOGLOBIN. 10.1 g/dL (12.0-16.0); LYMPHOCYTES % 24.5 % (20.0-50.0); MEAN CORPUSCULAR HEMOGLOBIN 26.9 pg (28.0-32.0); MEAN CORPUSCULAR VOLUME 84.2 fL (81.0-99.0); MEAN PLATELET VOLUME 8.2 fl (7.4-10.4); MONOCYTES % 11.1 % (2.0-8.0); NEUTROPHILS % 54.5 % (40.0-76.0); PLATELET 168 x1000/uL (130-400); RED BLOOD CELL COUNT 3.76 mill/uL (4.2-5.4); RED CELL DISTRIBUTION WIDTH 18.4 % (11.6-14.6)
[2017-07-11] MEDS: HYDROCODONE/ACETAMINOPHEN 5/325MG TABLET PO PRN ×2 (05:59→21:46)
[2017-07-11] MEDS: LEVOTHYROXINE SODIUM 150MCG TABLET PO SCH (06:54)
[2017-07-11] MEDS: HYDRALAZINE HCL 100MG TABLET PO SCH ×3 (06:54→21:46)
[2017-07-11] MEDS: CLONIDINE 0.3MG TABLET PO SCH ×3 (06:54→21:46)
[2017-07-11 08:00] VITALS: BP 108/61
[2017-07-11] MEDS: FOLIC ACID/VITAMIN B COMP W-C TABLET PO SCH (08:32)
[2017-07-11] MEDS: CINACALCET HCL 60MG TABLET PO SCH (08:32)
[2017-07-11] MEDS: SEVELAMER CARBONATE 800 MG TABLET PO SCH ×3 (08:32→18:35)
[2017-07-11] MEDS: MINOXIDIL 2.5MG TABLET PO SCH (09:00)
[2017-07-11] MEDS ORDERED: HEPARIN SODIUM 1,000 UNIT/1ML VIAL IV SCH (10:45)
[2017-07-11 12:00] VITALS: BP 84/43
[2017-07-11 16:00] VITALS: BP 97/50
[2017-07-11] MEDS: METHYLPREDNISOLONE SOD SUCC 40 MG/ML VIAL IV SCH (17:13)
[2017-07-11 20:00] VITALS: BP 124/68
[2017-07-11] MEDS: FAMOTIDINE 20MG TABLET PO SCH (21:46)
[2017-07-12] VITALS: BP 126/60
[2017-07-12] MEDS: METHYLPREDNISOLONE SOD SUCC 40 MG/ML VIAL IV SCH ×3 (00:34→15:45)
[2017-07-12 04:00] VITALS: BP 168/74
[2017-07-12] MEDS: IPRATROPIUM/ALBUTEROL 0.5-3(2.5)MG/3ML NEB INH SCH ×4 (05:00→20:20)
[2017-07-12] MEDS ORDERED: DIPHENHYDRAMINE 50MG/ML VIAL IV NR (06:00)
[2017-07-12] MEDS: LEVOTHYROXINE SODIUM 150MCG TABLET PO SCH (06:25)
[2017-07-12] MEDS: CLONIDINE 0.3MG TABLET PO SCH ×3 (06:25→21:19)
[2017-07-12] MEDS: HYDRALAZINE HCL 100MG TABLET PO SCH ×3 (06:25→21:17)
[2017-07-12 07:38] LABS: BASOPHILS % 0.3 % (0.0-2.0); EOSINOPHILS % 0.1 % (0.0-5.0); HEMATOCRIT. 29.1 % (36.0-48.0); HEMOGLOBIN. 9.7 g/dL (12.0-16.0); LYMPHOCYTES % 13.1 % (20.0-50.0); MEAN CORPUSCULAR HEMOGLOBIN 28.1 pg (28.0-32.0); MEAN CORPUSCULAR VOLUME 84.8 fL (81.0-99.0); MEAN PLATELET VOLUME 8.7 fl (7.4-10.4); MONOCYTES % 1.1 % (2.0-8.0); NEUTROPHILS % 85.4 % (40.0-76.0); PLATELET 142 x1000/uL (130-400); RED BLOOD CELL COUNT 3.44 mill/uL (4.2-5.4)
[2017-07-12] MEDS: FOLIC ACID/VITAMIN B COMP W-C TABLET PO SCH (08:47)
[2017-07-12] MEDS: MINOXIDIL 2.5MG TABLET PO SCH (08:47)
[2017-07-12] MEDS: SEVELAMER CARBONATE 800 MG TABLET PO SCH ×3 (08:47→17:57)
[2017-07-12] MEDS: CINACALCET HCL 60MG TABLET PO SCH (09:00)
[2017-07-12 09:17] VITALS: BP 119/58
[2017-07-12] MEDS ORDERED: GELATIN SPONGE,ABSORBABLE SZ 100 ONE (11:22)
[2017-07-12] MEDS ORDERED: LIDOCAINE HCL/PF 1% 10 MG/ML 5ML VIAL ONE ×2 (11:23→12:04)
[2017-07-12] MEDS ORDERED: HEPARIN SODIUM 1,000 UNIT/1ML VIAL IV ONE (11:23)
[2017-07-12] MEDS ORDERED: THROMBIN (BOVINE) 5000 UNITS/VIAL TOP ONE (11:23)
[2017-07-12] MEDS ORDERED: BUPIVACAINE HCL/PF 0.5% (5MG/ML) 10ML ONE (11:24)
[2017-07-12] MEDS ORDERED: BACITRACIN 50,000 UNITS/VIAL ONE (11:25)
[2017-07-12] MEDS ORDERED: BACITRACIN ZINC 15GM TUBE TOP ONE (11:25)
[2017-07-12] MEDS ORDERED: NORMAL SALINE 0.9% 10 ML SYR ONE (11:26)
[2017-07-12] MEDS ORDERED: VANCOMYCIN 1 G PREMIX 200 ML IV NR (12:00)
[2017-07-12] MEDS ORDERED: SUCCINYLCHOLINE CHLORIDE 200MG/10ML VIAL IV ONE (12:04)
[2017-07-12] MEDS ORDERED: PROPOFOL 200MG/20ML VIAL IV ONE ×2 (12:04→13:29)
[2017-07-12] MEDS ORDERED: GLYCOPYRROLATE 0.2 MG/ML 2ML VIAL ONE (12:04)
[2017-07-12] MEDS ORDERED: HYDROMORPHONE HCL/PF 2MG/ML (OR) ONE (12:04)
[2017-07-12] MEDS ORDERED: METOCLOPRAMIDE HCL 10MG/2ML VIAL ONE (12:04)
[2017-07-12] MEDS ORDERED: ONDANSETRON HCL 4MG/2ML VIAL ONE (12:04)
[2017-07-12] MEDS ORDERED: CLINDAMYCIN 600MG PREMIX 50 ML IV SCH (13:00)
[2017-07-12] MEDS ORDERED: HEPARIN 1000 UNITS/ML 10ML ONE (13:29)
[2017-07-12] MEDS: DIPHENHYDRAMINE 50MG/ML VIAL IV SCH ×2 (14:00→21:19)
[2017-07-12] MEDS ORDERED: SODIUM CHLORIDE 0.9% 1,000 ML IV NR (14:16)
[2017-07-12] MEDS ORDERED: HYDROMORPHONE HCL/PF 2MG/ML CPJ IV PRN (14:30)
[2017-07-12] MEDS ORDERED: ONDANSETRON HCL 4MG/2ML VIAL IV PRN (14:30)
[2017-07-12 16:52] VITALS: BP 100/49
[2017-07-12 20:00] VITALS: BP 119/52
[2017-07-12] MEDS: FAMOTIDINE 20MG TABLET PO SCH (21:17)
[2017-07-12] MEDS: HYDROCODONE/ACETAMINOPHEN 5/325MG TABLET PO PRN (21:18)
[2017-07-13] VITALS: BP 99/39
[2017-07-13] MEDS: IPRATROPIUM/ALBUTEROL 0.5-3(2.5)MG/3ML NEB INH SCH ×4 (01:33→21:42)
[2017-07-13 04:00] VITALS: BP 108/45
[2017-07-13] MEDS: HYDRALAZINE HCL 100MG TABLET PO SCH ×3 (06:00→21:28)
[2017-07-13] MEDS: CLONIDINE 0.3MG TABLET PO SCH ×3 (06:00→21:29)
[2017-07-13] MEDS: DIPHENHYDRAMINE 50MG/ML VIAL IV SCH ×3 (06:36→21:28)
[2017-07-13] MEDS: LEVOTHYROXINE SODIUM 150MCG TABLET PO SCH (06:37)
[2017-07-13 08:00] VITALS: BP 108/48
[2017-07-13] MEDS: MINOXIDIL 2.5MG TABLET PO SCH (08:17)
[2017-07-13] MEDS: FOLIC ACID/VITAMIN B COMP W-C TABLET PO SCH (08:23)
[2017-07-13] MEDS: SEVELAMER CARBONATE 800 MG TABLET PO SCH ×3 (08:23→19:09)
[2017-07-13] MEDS: CINACALCET HCL 60MG TABLET PO SCH (08:23)
[2017-07-13] MEDS: HYDROCODONE/ACETAMINOPHEN 5/325MG TABLET PO PRN ×3 (09:19→21:28)
[2017-07-13 12:00] VITALS: BP 114/63
[2017-07-13] MEDS ORDERED: VANCOMYCIN 1 G PREMIX 200 ML IV SCH (14:00)
[2017-07-13 16:00] VITALS: BP 131/61
[2017-07-13] MEDS: RIFAMPIN 300MG CAPSULE PO SCH (19:09)
[2017-07-13 20:00] VITALS: BP 118/59
[2017-07-13] MEDS: FAMOTIDINE 20MG TABLET PO SCH (21:27)
[2017-07-14] VITALS: BP 140/65
[2017-07-14] MEDS: IPRATROPIUM/ALBUTEROL 0.5-3(2.5)MG/3ML NEB INH SCH ×4 (02:56→20:15)
[2017-07-14 04:00] VITALS: BP 140/60
[2017-07-14] MEDS: LEVOTHYROXINE SODIUM 150MCG TABLET PO SCH ×2 (06:51→09:21)
[2017-07-14] MEDS: HYDRALAZINE HCL 100MG TABLET PO SCH ×3 (06:51→21:32)
[2017-07-14] MEDS: DIPHENHYDRAMINE 50MG/ML VIAL IV SCH ×3 (06:52→21:03)
[2017-07-14] MEDS: CLONIDINE 0.3MG TABLET PO SCH ×3 (06:52→21:33)
[2017-07-14] MEDS: HYDROCODONE/ACETAMINOPHEN 5/325MG TABLET PO PRN ×3 (06:58→18:20)
[2017-07-14 07:34] LABS: BASOPHILS % 1.4 % (0.0-2.0); EOSINOPHILS % 12.8 % (0.0-5.0); HEMATOCRIT. 27.7 % (36.0-48.0); LYMPHOCYTES % 26.7 % (20.0-50.0); MEAN CORPUSCULAR HEMOGLOBIN 27.5 pg (28.0-32.0); MEAN CORPUSCULAR VOLUME 84.7 fL (81.0-99.0); MONOCYTES % 8.7 % (2.0-8.0); NEUTROPHILS % 50.4 % (40.0-76.0); PLATELET 152 x1000/uL (130-400); RED BLOOD CELL COUNT 3.27 mill/uL (4.2-5.4); RED CELL DISTRIBUTION WIDTH 18.5 % (11.6-14.6)
[2017-07-14 08:00] VITALS: BP 141/78
[2017-07-14] MEDS: SEVELAMER CARBONATE 800 MG TABLET PO SCH ×3 (09:21→18:04)
[2017-07-14] MEDS: FOLIC ACID/VITAMIN B COMP W-C TABLET PO SCH (09:21)
[2017-07-14] MEDS: CINACALCET HCL 60MG TABLET PO SCH (09:21)
[2017-07-14] MEDS: RIFAMPIN 300MG CAPSULE PO SCH (09:21)
[2017-07-14] MEDS: MINOXIDIL 2.5MG TABLET PO SCH (09:22)
[2017-07-14 12:00] VITALS: BP 95/51
[2017-07-14 16:00] VITALS: BP 132/75
[2017-07-14 19:42] VITALS: BP 96/46
[2017-07-14] MEDS: FAMOTIDINE 20MG TABLET PO SCH (20:44)
[2017-07-15] VITALS (8 sets, daily range): BP systolic 11–173; BP diastolic 47–90
[2017-07-15] MEDS: IPRATROPIUM/ALBUTEROL 0.5-3(2.5)MG/3ML NEB INH SCH ×3 (02:37→12:49)
[2017-07-15] MEDS: CLONIDINE 0.3MG TABLET PO SCH ×3 (05:31→21:36)
[2017-07-15] MEDS: HYDRALAZINE HCL 100MG TABLET PO SCH ×3 (05:31→21:36)
[2017-07-15] MEDS: DIPHENHYDRAMINE 50MG/ML VIAL IV SCH ×3 (05:31→21:36)
[2017-07-15] MEDS: HYDROCODONE/ACETAMINOPHEN 5/325MG TABLET PO PRN (06:50)
[2017-07-15 07:12] LABS: HEMATOCRIT. 24.4 % (36.0-48.0); HEMOGLOBIN. 8.1 g/dL (12.0-16.0); MEAN CORPUSCULAR VOLUME 84.6 fL (81.0-99.0); MEAN PLATELET VOLUME 8.1 fl (7.4-10.4); PLATELET 136 x1000/uL (130-400); RED BLOOD CELL COUNT 2.88 mill/uL (4.2-5.4); RED CELL DISTRIBUTION WIDTH 18.1 % (11.6-14.6)
[2017-07-15] MEDS: CINACALCET HCL 60MG TABLET PO SCH (08:41)
[2017-07-15] MEDS: SEVELAMER CARBONATE 800 MG TABLET PO SCH ×3 (08:41→17:34)
[2017-07-15] MEDS: RIFAMPIN 300MG CAPSULE PO SCH (08:41)
[2017-07-15] MEDS: FOLIC ACID/VITAMIN B COMP W-C TABLET PO SCH (08:42)
[2017-07-15] MEDS: MINOXIDIL 2.5MG TABLET PO SCH (08:42)
[2017-07-15 10:07] LABS: PLATELET ESTIMATE NORMAL
[2017-07-15 12:34] LABS: HEMATOCRIT 24.6 % (36.0-48.0); HEMOGLOBIN 7.9 g/dL (12.0-16.0)
[2017-07-15] MEDS ORDERED: HEPARIN SODIUM 1,000 UNIT/1ML VIAL IV SCH (14:00)
[2017-07-15] MEDS ORDERED: VANCOMYCIN 750 MG PREMIX 150 ML IV NR (20:00)
[2017-07-15 20:34] LABS: HEMATOCRIT 28.7 % (36.0-48.0); HEMOGLOBIN 9.6 g/dL (12.0-16.0)
[2017-07-15] MEDS: FAMOTIDINE 20MG TABLET PO SCH (20:47)
[2017-07-15 22:09] LABS: INR 1.1; PROTHROMBIN TIME 11.7 sec (9.4-11.6)
[2017-07-16] VITALS: BP 131/63
[2017-07-16] MEDS: IPRATROPIUM/ALBUTEROL 0.5-3(2.5)MG/3ML NEB INH SCH ×3 (02:38→14:05)
[2017-07-16 04:44] VITALS: BP 144/62
[2017-07-16] MEDS: CLONIDINE 0.3MG TABLET PO SCH (06:00)
[2017-07-16] MEDS: DIPHENHYDRAMINE 50MG/ML VIAL IV SCH (06:44)
[2017-07-16] MEDS: LEVOTHYROXINE SODIUM 150MCG TABLET PO SCH (06:44)
[2017-07-16] MEDS: HYDRALAZINE HCL 100MG TABLET PO SCH (06:44)
[2017-07-16] MEDS: HYDROCODONE/ACETAMINOPHEN 5/325MG TABLET PO PRN (07:42)
[2017-07-16 08:00] VITALS: BP 137/68
[2017-07-16] MEDS: MINOXIDIL 2.5MG TABLET PO SCH (08:44)
[2017-07-16] MEDS: RIFAMPIN 300MG CAPSULE PO SCH (08:44)
[2017-07-16] MEDS: FOLIC ACID/VITAMIN B COMP W-C TABLET PO SCH (08:45)
[2017-07-16] MEDS: SEVELAMER CARBONATE 800 MG TABLET PO SCH (08:45)
[2017-07-16] MEDS: CINACALCET HCL 60MG TABLET PO SCH (08:45)
[2017-07-16 09:09] LABS: HEMATOCRIT 30.8 % (36.0-48.0); HEMOGLOBIN 10.1 g/dL (12.0-16.0); MEAN CORPUSCULAR HEMOGLOBIN 27.7 pg (28.0-32.0); MEAN CORPUSCULAR VOLUME 84.4 fL (81.0-99.0); PLATELET 161 x1000/uL (130-400); RED BLOOD CELL COUNT 3.64 mill/uL (4.2-5.4); RED CELL DISTRIBUTION WIDTH 17.7 % (11.6-14.6)
[2017-07-16] MEDS ORDERED: MINOXIDIL 10MG TABLET PO SCH (12:12)
[2017-07-16 13:47] VITALS: BP 121/62
== END 2017-07-16 15:56 | disposition home or self-care (01) | DRG 252 ==
LOC: 6WST 12:00
PROVIDERS: ADMIT Internal Medicine Nephrology; ATTEND Internal Medicine Nephrology
PROC: 06HY33Z Insertion of Infusion Device into Lower Vein, Percutaneous Approach (ICD-10-PCS; 2017-07-08)
PROC: 5A1D70Z Performance of Urinary Filtration, Intermittent, Less than 6 Hours Per Day (ICD-10-PCS; 2017-07-08)
PROC: 5A1D70Z Performance of Urinary Filtration, Intermittent, Less than 6 Hours Per Day (ICD-10-PCS; 2017-07-09)
PROC: 03U Upper Arteries, Supplement (ICD-10-PCS; 2017-07-09)
PROC: 03BY0ZZ Excision of Upper Artery, Open Approach (ICD-10-PCS; principal; 2017-07-09 13:30)
PROC: 5A1D70Z Performance of Urinary Filtration, Intermittent, Less than 6 Hours Per Day (ICD-10-PCS; 2017-07-10)
PROC: 5A1D70Z Performance of Urinary Filtration, Intermittent, Less than 6 Hours Per Day (ICD-10-PCS; 2017-07-11)
PROC: 05CY0ZZ Extirpation of Matter from Upper Vein, Open Approach (ICD-10-PCS; 2017-07-12)
PROC: 5A1D70Z Performance of Urinary Filtration, Intermittent, Less than 6 Hours Per Day (ICD-10-PCS; 2017-07-13)
PROC: 30233N1 Transfusion of Nonautologous Red Blood Cells into Peripheral Vein, Percutaneous Approach (ICD-10-PCS; 2017-07-15)
PROC: 5A1D70Z Performance of Urinary Filtration, Intermittent, Less than 6 Hours Per Day (ICD-10-PCS; 2017-07-15)
DX: T82.7XXA Infection and inflammatory reaction due to other cardiac and vascular devices, implants and grafts, initial encounter (principal); N18.6 End stage renal disease; A41.89 Other specified sepsis; I13.2 Hypertensive heart and chronic kidney disease with heart failure and with stage 5 chronic kidney disease, or end stage renal disease; E87.5 Hyperkalemia; I27.20 Pulmonary hypertension, unspecified; I50.30 Unspecified diastolic (congestive) heart failure; E03.9 Hypothyroidism, unspecified; D64.9 Anemia, unspecified; Y83.2 Surgical operation with anastomosis, bypass or graft as the cause of abnormal reaction of the patient, or of later complication, without mention of misadventure at the time of the procedure; B19.20 Unspecified viral hepatitis C without hepatic coma; F10.20 Alcohol dependence, uncomplicated; D63.1 Anemia in chronic kidney disease; T82.868A Thrombosis due to vascular prosthetic devices, implants and grafts, initial encounter; Z79.899 Other long term (current) drug therapy; Z82.49 Family history of ischemic heart disease and other diseases of the circulatory system; Z86.61 Personal history of infections of the central nervous system; Y92.89 Other specified places as the place of occurrence of the external cause; Z99.2 Dependence on renal dialysis; Z91.041 Radiographic dye allergy status; Z91.040 Latex allergy status; Z88.5 Allergy status to narcotic agent; Z88.0 Allergy status to penicillin; Z88.8 Allergy status to other drugs, medicaments and biological substances; Z91.018 Allergy to other foods
CPT/HCPCS: 36415; 36556; 71045; 76700; 76937; 77001; 80048; 80053; 80202; 82270; 82962; 83735; 84100; 84132; 84520; 85014; 85018; 85025; 85027; 85049; 85384; 85610; 85730; 86850; 86900; 86920; 87040; 88304; 93005; 93306; 94640; 97162; A4216; C1752; C1768; C1884; J0330; J1170; J1200; J1642; J1644; J1815; J2270; J2405; J2704; J2720; J2765; J2920; J3370; J3490; J7030; J7050; J7060; J7620; P9016

== ENCOUNTER → 2017-09-13 | Emergency (ER) | payer MEDICARE ==
[~2017-09-13] VITALS: Ht 165.1 cm; Wt 57.0 kg
[~2017-09-13] MED LIST changes: +ACETAMINOPHEN 325MG TABLET PO ONE; +ACETAMINOPHEN WITH CODEINE 300/30MG TABLET PO ONE; +HYDRALAZINE 20MG/ML VIAL IV ONE; +IOHEXOL-300 50 ML BOTTLE IV ONE; +LIDOCAINE HCL/PF 1% 10 MG/ML 5ML VIAL ONE; +METO25TA6 MT; +SODIUM BICARBONATE 4% (2.4MEQ) 5ML VIAL IV ONE
[2017-09-13 13:30] LABS: BASOPHILS % 1.4 % (0.0-2.0); EOSINOPHILS % 3.6 % (0.0-5.0); HEMATOCRIT. 32.9 % (36.0-48.0); HEMOGLOBIN. 10.6 g/dL (12.0-16.0); LYMPHOCYTES % 20.8 % (20.0-50.0); MEAN CORPUSCULAR HEMOGLOBIN 28.4 pg (28.0-32.0); MEAN CORPUSCULAR VOLUME 88.4 fL (81.0-99.0); MEAN PLATELET VOLUME 7.5 fl (7.4-10.4); MONOCYTES % 12.4 % (2.0-8.0); NEUTROPHILS % 61.8 % (40.0-76.0); PLATELET 213 x1000/uL (130-400); RED BLOOD CELL COUNT 3.72 mill/uL (4.2-5.4); RED CELL DISTRIBUTION WIDTH 16.2 % (11.6-14.6)
[2017-09-13 13:38] LABS: CHLORIDE 107 mEq/L (98-107); INR 1.1; PROTHROMBIN TIME 11.6 sec (9.4-11.6)
[2017-09-13 16:25] VITALS: BP 165/98
== END | disposition home or self-care (01) ==
LOC: ER 14:44
DX: T82.49XA Other complication of vascular dialysis catheter, initial encounter (principal); I12.0 Hypertensive chronic kidney disease with stage 5 chronic kidney disease or end stage renal disease; N18.6 End stage renal disease; Z99.2 Dependence on renal dialysis; Z91.040 Latex allergy status; Z88.5 Allergy status to narcotic agent; Z88.0 Allergy status to penicillin; Z91.013 Allergy to seafood; Z88.8 Allergy status to other drugs, medicaments and biological substances; Z91.018 Allergy to other foods; Y84.1 Kidney dialysis as the cause of abnormal reaction of the patient, or of later complication, without mention of misadventure at the time of the procedure; Y92.018 Other place in single-family (private) house as the place of occurrence of the external cause
CPT/HCPCS: 36415; 36580; 71045; 80053; 85025; 85610; 93005; 96374; 99285; C1752; C1769; J0360; J1642; J3490; Q9967

== ENCOUNTER 2018-03-02 12:22 | Inpatient (IN) | payer MEDICAID, MEDICARE ==
[~2018-03-02] VITALS: Ht 162.6 cm; Wt 59.0 kg
[~2018-03-02 12:22] MED LIST changes: -ACETAMINOPHEN 325MG TABLET PO ONE; -ACETAMINOPHEN WITH CODEINE 300/30MG TABLET PO ONE; -HYDRALAZINE 20MG/ML VIAL IV ONE; -IOHEXOL-300 50 ML BOTTLE IV ONE; -LIDOCAINE HCL/PF 1% 10 MG/ML 5ML VIAL ONE; -METO25TA6 MT; -MINO2.5T19 PO; -SODIUM BICARBONATE 4% (2.4MEQ) 5ML VIAL IV ONE
[2018-03-02] MEDS ORDERED: SODIUM CHLORIDE 0.9% 1000ML BAG (SEPSIS BOLUS) IV ONE (13:00)
[2018-03-02] MEDS ORDERED: CEFTRIAXONE 1 G PREMIX 50 ML IV ONE (13:00)
[2018-03-02 13:37] LABS: BASOPHILS % 0.3 % (0.0-2.0); EOSINOPHILS % 0.2 % (0.0-5.0); HEMATOCRIT. 25.4 % (36.0-48.0); HEMOGLOBIN. 8.3 g/dL (12.0-16.0); LYMPHOCYTES % 9.6 % (20.0-50.0); MEAN CORPUSCULAR HEMOGLOBIN 27.1 pg (28.0-32.0); MEAN CORPUSCULAR VOLUME 83.3 fL (81.0-99.0); MEAN PLATELET VOLUME 8.8 fl (7.4-10.4); MONOCYTES % 6.9 % (2.0-8.0); PLATELET 131 x1000/uL (130-400); RED BLOOD CELL COUNT 3.05 mill/uL (4.2-5.4); RED CELL DISTRIBUTION WIDTH 18.5 % (11.6-14.6)
[2018-03-02 13:43] LABS: CHLORIDE 93 mEq/L (98-107)
[2018-03-02 13:45] LABS: INR 1.1; PROTHROMBIN TIME 11.3 sec (9.1-11.1)
[2018-03-02] MEDS ORDERED: VANCOMYCIN 1 G PREMIX 200 ML IV SCH (14:15)
[2018-03-02] MEDS ORDERED: ONDANSETRON HCL 4MG/2ML INJ IV PRN (14:15)
[2018-03-02] MEDS ORDERED: DOCUSATE SODIUM 100MG CAPSULE PO PRN (14:15)
[2018-03-02] MEDS: ACETAMINOPHEN 325MG TABLET PO PRN (16:08)
[2018-03-02] MEDS: CLONIDINE 0.1MG TABLET PO PRN (16:11)
[2018-03-02 20:00] VITALS: BP 170/77
[2018-03-02] MEDS ORDERED: ENOXAPARIN 30MG/0.3ML SYR SUBCUT SCH (21:00)
[2018-03-02] MEDS: HYDRALAZINE HCL 100MG TABLET PO SCH (21:27)
[2018-03-02] MEDS: TRAMADOL 50MG TABLET PO PRN (21:30)
[2018-03-02] MEDS: SODIUM CHLORIDE 0.45% 1,000 ML IV SCH (21:33)
[2018-03-02] MEDS ORDERED: LEVOFLOXACIN 500MG PREMIX 100 ML IV NR (22:00)
[2018-03-02] MEDS ORDERED: ENOXAPARIN 30MG/0.3ML SYR SUBCUT NR (22:04)
[2018-03-02 22:10] VITALS: BP 170/77
[2018-03-02] MEDS: DIPHENHYDRAMINE 50MG/ML VIAL IV PRN (22:57)
[2018-03-02] MEDS ORDERED: DOXY100C2 PO (23:56)
[2018-03-02] MEDS ORDERED: LEVE750T4 MT (23:56)
[2018-03-02] MEDS ORDERED: AMLO10TA80 PO (23:56)
[2018-03-02] MEDS ORDERED: LEVO75TA7 PO (23:56)
[2018-03-02] MEDS ORDERED: LABE200T28 PO (23:56)
[2018-03-03] MEDS: CLONIDINE 0.1MG TABLET PO PRN (00:30)
[2018-03-03 01:00] VITALS: BP 231/75
[2018-03-03] MEDS: MINOXIDIL 2.5MG TABLET PO SCH ×2 (01:43→08:26)
[2018-03-03 04:00] VITALS: BP 125/61
[2018-03-03] MEDS: ACETAMINOPHEN 325MG TABLET PO PRN ×2 (04:43→08:31)
[2018-03-03] MEDS: TRAMADOL 50MG TABLET PO PRN (04:45)
[2018-03-03] MEDS: HYDRALAZINE HCL 100MG TABLET PO SCH ×3 (06:01→21:19)
[2018-03-03 07:30] VITALS: BP 104/44
[2018-03-03] MEDS: FOLIC ACID/VITAMIN B COMP W-C TABLET PO SCH (08:31)
[2018-03-03] MEDS: LEVETIRACETAM 500MG TABLET PO SCH ×2 (08:32→21:18)
[2018-03-03] MEDS: CINACALCET HCL 60MG TABLET PO SCH (08:32)
[2018-03-03] MEDS: LEVOTHYROXINE SODIUM 150MCG TABLET PO SCH (08:32)
[2018-03-03] MEDS: SEVELAMER CARBONATE 800 MG TABLET PO SCH ×3 (08:33→17:03)
[2018-03-03] MEDS: DIPHENHYDRAMINE 25MG CAPSULE PO SCH ×3 (09:59→21:19)
[2018-03-03] MEDS: FAMOTIDINE 20MG TABLET PO SCH ×3 (09:59→21:19)
[2018-03-03] MEDS: METHYLPREDNISOLONE SOD SUCC 125 MG/2 ML VIAL IV SCH ×2 (10:00→17:04)
[2018-03-03] MEDS: SODIUM CHLORIDE 0.45% 1,000 ML IV SCH (10:00)
[2018-03-03 11:11] LABS: BASOPHILS % 0.5 % (0.0-2.0); EOSINOPHILS % 0.1 % (0.0-5.0); HEMATOCRIT. 26.9 % (36.0-48.0); HEMOGLOBIN. 8.8 g/dL (12.0-16.0); MEAN CORPUSCULAR HEMOGLOBIN 27.4 pg (28.0-32.0); MEAN CORPUSCULAR VOLUME 83.7 fL (81.0-99.0); MEAN PLATELET VOLUME 9.1 fl (7.4-10.4); MONOCYTES % 7.5 % (2.0-8.0); NEUTROPHILS % 83.9 % (40.0-76.0); PLATELET 138 x1000/uL (130-400); RED BLOOD CELL COUNT 3.21 mill/uL (4.2-5.4); RED CELL DISTRIBUTION WIDTH 18.3 % (11.6-14.6)
[2018-03-03 11:30] VITALS: BP 117/51
[2018-03-03 11:50] LABS: CHLORIDE 103 mEq/L (98-107)
[2018-03-03 11:53] LABS: HDL CHOLESTEROL 52 mg/dL (40-59); LDL CHOLESTEROL 97 mg/dL (5-100)
[2018-03-03] MEDS ORDERED: VANCOMYCIN 1 G PREMIX 200 ML IV NR (15:00)
[2018-03-03 15:47] VITALS: BP 114/57
[2018-03-03] MEDS ORDERED: LEVOFLOXACIN 500MG PREMIX 100 ML IV NR (16:00)
[2018-03-03 20:00] VITALS: BP 121/53
[2018-03-03] MEDS ORDERED: ENOXAPARIN 60MG/0.6ML SYR SUBCUT SCH (21:00)
[2018-03-04] VITALS: BP 110/55
[2018-03-04] MEDS: METHYLPREDNISOLONE SOD SUCC 125 MG/2 ML VIAL IV SCH ×4 (01:53→18:26)
[2018-03-04 04:25] VITALS: BP 130/62
[2018-03-04] MEDS: FAMOTIDINE 20MG TABLET PO SCH ×3 (05:00→18:21)
[2018-03-04] MEDS: DIPHENHYDRAMINE 25MG CAPSULE PO SCH ×3 (05:00→18:20)
[2018-03-04] MEDS: HYDRALAZINE HCL 100MG TABLET PO SCH ×3 (05:00→20:30)
[2018-03-04] MEDS: SODIUM CHLORIDE 0.45% 1,000 ML IV SCH (06:10)
[2018-03-04] MEDS: LEVOTHYROXINE SODIUM 150MCG TABLET PO SCH (06:11)
[2018-03-04 06:43] LABS: HEMATOCRIT. 26.6 % (36.0-48.0); HEMOGLOBIN. 8.7 g/dL (12.0-16.0); MEAN CORPUSCULAR HEMOGLOBIN 27.3 pg (28.0-32.0); MEAN CORPUSCULAR VOLUME 83.3 fL (81.0-99.0); MEAN PLATELET VOLUME 8.9 fl (7.4-10.4); PLATELET 146 x1000/uL (130-400); RED BLOOD CELL COUNT 3.19 mill/uL (4.2-5.4); RED CELL DISTRIBUTION WIDTH 18.4 % (11.6-14.6)
[2018-03-04] MEDS ORDERED: MORPHINE SULFATE 10 MG/ML CPJ IV ONE (07:00)
[2018-03-04 07:10] LABS: CHLORIDE 100 mEq/L (98-107)
[2018-03-04] MEDS: SEVELAMER CARBONATE 800 MG TABLET PO SCH ×3 (07:40→18:20)
[2018-03-04 08:00] VITALS: BP 117/65
[2018-03-04] MEDS: IPRATROPIUM/ALBUTEROL 0.5-3(2.5)MG/3ML NEB INH SCH ×3 (08:43→21:10)
[2018-03-04 08:50] LABS: PLATELET ESTIMATE NORMAL
[2018-03-04] MEDS: FOLIC ACID/VITAMIN B COMP W-C TABLET PO SCH (09:00)
[2018-03-04] MEDS ORDERED: LIDOCAINE HCL 1% 20ML VIAL (Pyxis) INJ ONE (10:53)
[2018-03-04] MEDS ORDERED: HEPARIN 1000 UNITS/ML 10ML ONE (10:53)
[2018-03-04] MEDS ORDERED: SODIUM BICARBONATE 4% (2.4MEQ) 5ML VIAL IV ONE (10:53)
[2018-03-04] MEDS ORDERED: IOHEXOL-300 100 ML BOTTLE ONE (10:55)
[2018-03-04] MEDS ORDERED: IOHEXOL-350 100 ML BOTTLE ONE (11:51)
[2018-03-04 12:00] VITALS: BP 116/62
[2018-03-04] MEDS: CINACALCET HCL 60MG TABLET PO SCH (12:02)
[2018-03-04] MEDS: MINOXIDIL 2.5MG TABLET PO SCH (12:03)
[2018-03-04] MEDS: LEVETIRACETAM 500MG TABLET PO SCH ×2 (12:03→20:30)
[2018-03-04] MEDS: TRAMADOL 50MG TABLET PO PRN (12:04)
[2018-03-04 17:12] VITALS: BP 138/58
[2018-03-04] MEDS: ENOXAPARIN 30MG/0.3ML SYR SUBCUT SCH (18:26)
[2018-03-04 20:00] VITALS: BP 121/54
[2018-03-04] MEDS: DIPHENHYDRAMINE 50MG/ML VIAL IV PRN (20:30)
[2018-03-04] MEDS ORDERED: LEVOFLOXACIN 250MG PREMIX 50 ML IV SCH (21:00)
[2018-03-05] VITALS: BP 106/46
[2018-03-05] MEDS: IPRATROPIUM/ALBUTEROL 0.5-3(2.5)MG/3ML NEB INH SCH ×4 (01:27→21:31)
[2018-03-05 04:00] VITALS: BP 101/47
[2018-03-05] MEDS: DIPHENHYDRAMINE 50MG/ML VIAL IV PRN ×2 (04:57→16:43)
[2018-03-05] MEDS: SODIUM CHLORIDE 0.45% 1,000 ML IV SCH (04:57)
[2018-03-05] MEDS: HYDRALAZINE HCL 100MG TABLET PO SCH ×3 (05:12→20:18)
[2018-03-05 06:52] LABS: HEMATOCRIT. 23.1 % (36.0-48.0); HEMOGLOBIN. 7.5 g/dL (12.0-16.0); MEAN CORPUSCULAR HEMOGLOBIN 26.8 pg (28.0-32.0); MEAN CORPUSCULAR VOLUME 82.1 fL (81.0-99.0); PLATELET 168 x1000/uL (130-400); RED BLOOD CELL COUNT 2.81 mill/uL (4.2-5.4); RED CELL DISTRIBUTION WIDTH 18.5 % (11.6-14.6)
[2018-03-05] MEDS: SEVELAMER CARBONATE 800 MG TABLET PO SCH ×3 (07:40→16:43)
[2018-03-05 08:00] VITALS: BP 106/53
[2018-03-05] MEDS: TRAMADOL 50MG TABLET PO PRN (08:41)
[2018-03-05] MEDS: LEVETIRACETAM 500MG TABLET PO SCH ×2 (08:41→20:24)
[2018-03-05] MEDS: FOLIC ACID/VITAMIN B COMP W-C TABLET PO SCH (09:00)
[2018-03-05] MEDS: MINOXIDIL 2.5MG TABLET PO SCH (09:00)
[2018-03-05 09:26] LABS: PLATELET ESTIMATE NORMAL
[2018-03-05] MEDS: METHYLPREDNISOLONE SOD SUCC 125 MG/2 ML VIAL IV SCH ×2 (10:55→17:31)
[2018-03-05 11:51] VITALS: BP 93/37
[2018-03-05] MEDS: LEVOTHYROXINE SODIUM 150MCG TABLET PO SCH (13:03)
[2018-03-05] MEDS: OMEPRAZOLE 20MG CAPSULE EXTENDED RELEASE PO SCH ×2 (13:03→20:24)
[2018-03-05] MEDS: CINACALCET HCL 60MG TABLET PO SCH (13:06)
[2018-03-05] MEDS ORDERED: VANCOMYCIN 1 G PREMIX 200 ML IV NR (15:00)
[2018-03-05 15:57] VITALS: BP 104/43
[2018-03-05] MEDS ORDERED: LEVOFLOXACIN 250MG PREMIX 50 ML IV SCH ×2 (16:00→21:00)
[2018-03-05] MEDS: ENOXAPARIN 30MG/0.3ML SYR SUBCUT SCH (16:28)
[2018-03-05 17:20] LABS: HEMATOCRIT 23.4 % (36.0-48.0); HEMOGLOBIN 7.6 g/dL (12.0-16.0)
[2018-03-05 20:00] VITALS: BP 93/49
[2018-03-06] VITALS (11 sets, daily range): BP systolic 106–152; BP diastolic 42–75
[2018-03-06] MEDS: METHYLPREDNISOLONE SOD SUCC 125 MG/2 ML VIAL IV SCH ×3 (02:23→17:05)
[2018-03-06] MEDS: DIPHENHYDRAMINE 50MG/ML VIAL IV PRN ×3 (02:28→21:37)
[2018-03-06] MEDS: IPRATROPIUM/ALBUTEROL 0.5-3(2.5)MG/3ML NEB INH SCH ×3 (02:40→21:34)
[2018-03-06] MEDS: HYDRALAZINE HCL 100MG TABLET PO SCH ×3 (06:00→21:26)
[2018-03-06] MEDS: OMEPRAZOLE 20MG CAPSULE EXTENDED RELEASE PO SCH ×2 (06:29→21:26)
[2018-03-06] MEDS: LEVOTHYROXINE SODIUM 150MCG TABLET PO SCH (06:30)
[2018-03-06 07:26] LABS: HEMATOCRIT. 21.5 % (36.0-48.0); HEMOGLOBIN. 7.1 g/dL (12.0-16.0); MEAN CORPUSCULAR HEMOGLOBIN 27.1 pg (28.0-32.0); MEAN CORPUSCULAR VOLUME 82.3 fL (81.0-99.0); MEAN PLATELET VOLUME 8.7 fl (7.4-10.4); PLATELET 129 x1000/uL (130-400); RED BLOOD CELL COUNT 2.61 mill/uL (4.2-5.4); RED CELL DISTRIBUTION WIDTH 18.3 % (11.6-14.6)
[2018-03-06 09:11] LABS: PLATELET ESTIMATE SLIGHTLY DECREASED
[2018-03-06] MEDS: CINACALCET HCL 60MG TABLET PO SCH (09:20)
[2018-03-06] MEDS: SEVELAMER CARBONATE 800 MG TABLET PO SCH ×3 (09:20→17:05)
[2018-03-06] MEDS: FOLIC ACID/VITAMIN B COMP W-C TABLET PO SCH (09:20)
[2018-03-06] MEDS: LEVETIRACETAM 500MG TABLET PO SCH ×2 (09:20→21:25)
[2018-03-06] MEDS: MINOXIDIL 2.5MG TABLET PO SCH (09:21)
[2018-03-06] MEDS: SODIUM CHLORIDE 0.45% 1,000 ML IV SCH (13:30)
[2018-03-06] MEDS: TRAMADOL 50MG TABLET PO PRN (17:04)
[2018-03-06] MEDS: ENOXAPARIN 30MG/0.3ML SYR SUBCUT SCH (17:05)
[2018-03-06 17:51] LABS: HEMATOCRIT 28.7 % (36.0-48.0); HEMOGLOBIN 9.4 g/dL (12.0-16.0)
[2018-03-07] VITALS (7 sets, daily range): BP systolic 103–137; BP diastolic 58–72
[2018-03-07] MEDS: IPRATROPIUM/ALBUTEROL 0.5-3(2.5)MG/3ML NEB INH SCH ×4 (01:05→21:00)
[2018-03-07] MEDS: METHYLPREDNISOLONE SOD SUCC 125 MG/2 ML VIAL IV SCH ×3 (02:30→17:51)
[2018-03-07] MEDS: HYDRALAZINE HCL 100MG TABLET PO SCH ×3 (06:00→22:21)
[2018-03-07] MEDS: OMEPRAZOLE 20MG CAPSULE EXTENDED RELEASE PO SCH ×2 (06:12→20:30)
[2018-03-07] MEDS: LEVOTHYROXINE SODIUM 150MCG TABLET PO SCH (06:12)
[2018-03-07 07:12] LABS: HEMOGLOBIN. 9.4 g/dL (12.0-16.0); MEAN CORPUSCULAR HEMOGLOBIN 27.4 pg (28.0-32.0); MEAN CORPUSCULAR VOLUME 81.9 fL (81.0-99.0); MEAN PLATELET VOLUME 8.5 fl (7.4-10.4); PLATELET 144 x1000/uL (130-400); RED BLOOD CELL COUNT 3.41 mill/uL (4.2-5.4); RED CELL DISTRIBUTION WIDTH 17.8 % (11.6-14.6)
[2018-03-07] MEDS: SEVELAMER CARBONATE 800 MG TABLET PO SCH ×3 (08:26→17:48)
[2018-03-07] MEDS: LEVETIRACETAM 500MG TABLET PO SCH ×2 (08:26→20:30)
[2018-03-07] MEDS: CINACALCET HCL 60MG TABLET PO SCH (08:26)
[2018-03-07] MEDS: FOLIC ACID/VITAMIN B COMP W-C TABLET PO SCH (08:26)
[2018-03-07] MEDS: TRAMADOL 50MG TABLET PO PRN ×2 (08:39→15:23)
[2018-03-07] MEDS: MINOXIDIL 2.5MG TABLET PO SCH (08:39)
[2018-03-07 09:59] LABS: PLATELET ESTIMATE NORMAL
[2018-03-07] MEDS ORDERED: LORAZEPAM 0.5MG TABLET PO PRN (10:00)
[2018-03-07] MEDS: SODIUM CHLORIDE 0.45% 1,000 ML IV SCH (12:06)
[2018-03-07] MEDS: ENOXAPARIN 30MG/0.3ML SYR SUBCUT SCH (17:48)
[2018-03-07] MEDS ORDERED: EPOETIN ALFA 10000UNITS/ML VIAL SUBCUT SCH (21:00)
[2018-03-07] MEDS ORDERED: VANCOMYCIN 750 MG PREMIX 150 ML IV NR (21:00)
[2018-03-08 00:08] VITALS: BP 129/73
[2018-03-08] MEDS: METHYLPREDNISOLONE SOD SUCC 125 MG/2 ML VIAL IV SCH ×3 (01:51→21:10)
[2018-03-08] MEDS: IPRATROPIUM/ALBUTEROL 0.5-3(2.5)MG/3ML NEB INH SCH ×5 (02:15→21:04)
[2018-03-08 04:00] VITALS: BP 131/66
[2018-03-08] MEDS: HYDRALAZINE HCL 100MG TABLET PO SCH ×3 (05:44→21:11)
[2018-03-08] MEDS: LEVOTHYROXINE SODIUM 150MCG TABLET PO SCH (05:44)
[2018-03-08] MEDS: OMEPRAZOLE 20MG CAPSULE EXTENDED RELEASE PO SCH (05:44)
[2018-03-08 06:59] LABS: HEMATOCRIT. 27.6 % (36.0-48.0); HEMOGLOBIN. 9.4 g/dL (12.0-16.0); MEAN CORPUSCULAR HEMOGLOBIN 27.8 pg (28.0-32.0); MEAN CORPUSCULAR VOLUME 81.9 fL (81.0-99.0); MEAN PLATELET VOLUME 8.3 fl (7.4-10.4); PLATELET 143 x1000/uL (130-400); RED BLOOD CELL COUNT 3.37 mill/uL (4.2-5.4); RED CELL DISTRIBUTION WIDTH 17.5 % (11.6-14.6)
[2018-03-08 08:00] VITALS: BP 147/71
[2018-03-08] MEDS: SEVELAMER CARBONATE 800 MG TABLET PO SCH ×3 (08:21→17:13)
[2018-03-08] MEDS: MINOXIDIL 2.5MG TABLET PO SCH (08:22)
[2018-03-08] MEDS: LEVETIRACETAM 500MG TABLET PO SCH ×2 (08:22→21:10)
[2018-03-08] MEDS: FOLIC ACID/VITAMIN B COMP W-C TABLET PO SCH (08:22)
[2018-03-08] MEDS: CINACALCET HCL 60MG TABLET PO SCH (08:22)
[2018-03-08 10:33] LABS: PLATELET ESTIMATE NORMAL
[2018-03-08 12:00] VITALS: BP 121/64
[2018-03-08] MEDS: DIPHENHYDRAMINE 50MG/ML VIAL IV PRN ×2 (14:13→21:10)
[2018-03-08 15:50] VITALS: BP 106/48
[2018-03-08] MEDS: ENOXAPARIN 30MG/0.3ML SYR SUBCUT SCH (17:14)
[2018-03-08 20:00] VITALS: BP 124/50
[2018-03-08] MEDS: TRAMADOL 50MG TABLET PO PRN (21:11)
[2018-03-09] VITALS: BP 118/80
[2018-03-09] MEDS: IPRATROPIUM/ALBUTEROL 0.5-3(2.5)MG/3ML NEB INH SCH ×4 (01:02→21:26)
[2018-03-09 04:00] VITALS: BP 109/59
[2018-03-09] MEDS: HYDRALAZINE HCL 100MG TABLET PO SCH ×3 (06:00→20:39)
[2018-03-09] MEDS: LEVOTHYROXINE SODIUM 150MCG TABLET PO SCH (06:27)
[2018-03-09] MEDS: DIPHENHYDRAMINE 50MG/ML VIAL IV PRN ×4 (06:27→23:40)
[2018-03-09 08:00] VITALS: BP 128/64
[2018-03-09] MEDS: LEVETIRACETAM 500MG TABLET PO SCH ×2 (08:42→20:38)
[2018-03-09] MEDS: FAMOTIDINE 20MG TABLET PO SCH (08:42)
[2018-03-09] MEDS: CINACALCET HCL 60MG TABLET PO SCH (08:42)
[2018-03-09] MEDS: SEVELAMER CARBONATE 800 MG TABLET PO SCH ×3 (08:42→17:21)
[2018-03-09] MEDS: METHYLPREDNISOLONE SOD SUCC 125 MG/2 ML VIAL IV SCH ×2 (08:43→20:38)
[2018-03-09] MEDS: FOLIC ACID/VITAMIN B COMP W-C TABLET PO SCH (08:43)
[2018-03-09] MEDS: MINOXIDIL 2.5MG TABLET PO SCH (08:56)
[2018-03-09 12:00] VITALS: BP 144/76
[2018-03-09 16:00] VITALS: BP 124/58
[2018-03-09 16:26] LABS: HEMATOCRIT. 31.2 % (36.0-48.0); HEMOGLOBIN. 10.1 g/dL (12.0-16.0); MEAN CORPUSCULAR VOLUME 83.4 fL (81.0-99.0); MEAN PLATELET VOLUME 7.8 fl (7.4-10.4); PLATELET 164 x1000/uL (130-400); RED BLOOD CELL COUNT 3.75 mill/uL (4.2-5.4)
[2018-03-09 16:42] LABS: PLATELET ESTIMATE NORMAL
[2018-03-09] MEDS: ENOXAPARIN 30MG/0.3ML SYR SUBCUT SCH (17:21)
[2018-03-09 20:00] VITALS: BP 146/77
[2018-03-10] VITALS: BP 142/68
[2018-03-10] MEDS: IPRATROPIUM/ALBUTEROL 0.5-3(2.5)MG/3ML NEB INH SCH ×4 (03:00→20:38)
[2018-03-10 04:00] VITALS: BP 109/55
[2018-03-10] MEDS: HYDRALAZINE HCL 100MG TABLET PO SCH ×3 (05:40→20:36)
[2018-03-10] MEDS: DIPHENHYDRAMINE 50MG/ML VIAL IV PRN ×3 (05:44→20:35)
[2018-03-10 06:19] LABS: HEMATOCRIT. 29.3 % (36.0-48.0); HEMOGLOBIN. 9.7 g/dL (12.0-16.0); MEAN CORPUSCULAR HEMOGLOBIN 27.6 pg (28.0-32.0); MEAN CORPUSCULAR VOLUME 83.1 fL (81.0-99.0); MEAN PLATELET VOLUME 8.2 fl (7.4-10.4); PLATELET 159 x1000/uL (130-400); RED BLOOD CELL COUNT 3.52 mill/uL (4.2-5.4)
[2018-03-10] MEDS: LEVOTHYROXINE SODIUM 150MCG TABLET PO SCH (06:49)
[2018-03-10] MEDS: SEVELAMER CARBONATE 800 MG TABLET PO SCH ×3 (06:49→18:52)
[2018-03-10 08:00] VITALS: BP 150/79
[2018-03-10] MEDS: CINACALCET HCL 60MG TABLET PO SCH (09:27)
[2018-03-10] MEDS: METHYLPREDNISOLONE SOD SUCC 125 MG/2 ML VIAL IV SCH (09:27)
[2018-03-10] MEDS: FOLIC ACID/VITAMIN B COMP W-C TABLET PO SCH (09:27)
[2018-03-10] MEDS: LEVETIRACETAM 500MG TABLET PO SCH ×2 (09:27→20:36)
[2018-03-10] MEDS: FAMOTIDINE 20MG TABLET PO SCH (09:27)
[2018-03-10] MEDS: MINOXIDIL 2.5MG TABLET PO SCH (09:33)
[2018-03-10 10:51] LABS: NUCLEATED RED BLOOD CELLS 1 /100 WBC; PLATELET ESTIMATE NORMAL
[2018-03-10 11:55] VITALS: BP 150/76
[2018-03-10 16:00] VITALS: BP 138/71
[2018-03-10] MEDS: ENOXAPARIN 30MG/0.3ML SYR SUBCUT SCH (18:53)
[2018-03-10 20:00] VITALS: BP 131/61
[2018-03-11] VITALS: BP 116/54
[2018-03-11] MEDS: IPRATROPIUM/ALBUTEROL 0.5-3(2.5)MG/3ML NEB INH SCH ×2 (00:18→08:19)
[2018-03-11 04:00] VITALS: BP 161/85
[2018-03-11] MEDS: DIPHENHYDRAMINE 50MG/ML VIAL IV PRN (06:04)
[2018-03-11] MEDS: LEVOTHYROXINE SODIUM 150MCG TABLET PO SCH (06:04)
[2018-03-11] MEDS: HYDRALAZINE HCL 100MG TABLET PO SCH (06:04)
[2018-03-11 06:21] LABS: HEMATOCRIT. 31.7 % (36.0-48.0); HEMOGLOBIN. 10.2 g/dL (12.0-16.0); MEAN CORPUSCULAR HEMOGLOBIN 27.2 pg (28.0-32.0); MEAN CORPUSCULAR VOLUME 84.5 fL (81.0-99.0); PLATELET 169 x1000/uL (130-400); RED BLOOD CELL COUNT 3.75 mill/uL (4.2-5.4); RED CELL DISTRIBUTION WIDTH 18.1 % (11.6-14.6)
[2018-03-11 07:56] VITALS: BP 174/88
[2018-03-11] MEDS: SEVELAMER CARBONATE 800 MG TABLET PO SCH (08:08)
[2018-03-11] MEDS: FOLIC ACID/VITAMIN B COMP W-C TABLET PO SCH (08:08)
[2018-03-11] MEDS: CINACALCET HCL 60MG TABLET PO SCH (08:08)
[2018-03-11] MEDS: FAMOTIDINE 20MG TABLET PO SCH (08:08)
[2018-03-11] MEDS: METHYLPREDNISOLONE SOD SUCC 125 MG/2 ML VIAL IV SCH (08:09)
[2018-03-11] MEDS: LEVETIRACETAM 500MG TABLET PO SCH (08:09)
[2018-03-11] MEDS: MINOXIDIL 2.5MG TABLET PO SCH (08:14)
[2018-03-11 09:41] VITALS: BP 155/75
[2018-03-11 13:16] LABS: NUCLEATED RED BLOOD CELLS 11 /100 WBC; PLATELET ESTIMATE NORMAL
== END 2018-03-11 10:44 | disposition home or self-care (01) | DRG 871 ==
LOC: ER 12:22 → EDBEDREQ 14:22 → EDBEDREQSVC 14:22 → ENRESERV 19:39 → 8WST 20:17
PROVIDERS: ADMIT Internal Medicine Nephrology; ATTEND Internal Medicine Nephrology
PROC: 5A1D70Z Performance of Urinary Filtration, Intermittent, Less than 6 Hours Per Day (ICD-10-PCS; 2018-03-02)
PROC: 5A1D70Z Performance of Urinary Filtration, Intermittent, Less than 6 Hours Per Day (ICD-10-PCS; 2018-03-04)
PROC: 06PYX3Z Removal of Infusion Device from Lower Vein, External Approach (ICD-10-PCS; 2018-03-05)
PROC: 5A1D70Z Performance of Urinary Filtration, Intermittent, Less than 6 Hours Per Day (ICD-10-PCS; principal; 2018-03-06)
PROC: 30233N1 Transfusion of Nonautologous Red Blood Cells into Peripheral Vein, Percutaneous Approach (ICD-10-PCS; 2018-03-06)
PROC: 5A1D70Z Performance of Urinary Filtration, Intermittent, Less than 6 Hours Per Day (ICD-10-PCS; 2018-03-09)
PROC: 5A1D70Z Performance of Urinary Filtration, Intermittent, Less than 6 Hours Per Day (ICD-10-PCS; 2018-03-10)
DX: A41.9 Sepsis, unspecified organism (principal); N18.6 End stage renal disease; I21.9 Acute myocardial infarction, unspecified; I26.99 Other pulmonary embolism without acute cor pulmonale; I13.11 Hypertensive heart and chronic kidney disease without heart failure, with stage 5 chronic kidney disease, or end stage renal disease; Z99.2 Dependence on renal dialysis; D64.9 Anemia, unspecified; B19.20 Unspecified viral hepatitis C without hepatic coma; D15.1 Benign neoplasm of heart; M79.89 Other specified soft tissue disorders; B95.61 Methicillin susceptible Staphylococcus aureus infection as the cause of diseases classified elsewhere; E83.51 Hypocalcemia; Z91.041 Radiographic dye allergy status; E03.9 Hypothyroidism, unspecified; K57.90 Diverticulosis of intestine, part unspecified, without perforation or abscess without bleeding; D25.9 Leiomyoma of uterus, unspecified; D69.6 Thrombocytopenia, unspecified; G40.909 Epilepsy, unspecified, not intractable, without status epilepticus; G89.29 Other chronic pain; K21.9 Gastro-esophageal reflux disease without esophagitis; N28.1 Cyst of kidney, acquired; Z88.0 Allergy status to penicillin; Z82.49 Family history of ischemic heart disease and other diseases of the circulatory system; Z82.5 Family history of asthma and other chronic lower respiratory diseases; Z83.3 Family history of diabetes mellitus; Z88.8 Allergy status to other drugs, medicaments and biological substances; Z91.040 Latex allergy status; Z88.5 Allergy status to narcotic agent; Z91.013 Allergy to seafood
CPT/HCPCS: 36415; 36589; 71045; 71275; 74176; 78582; 80048; 80051; 80061; 80202; 82270; 82330; 83540; 83550; 83605; 83735; 83970; 84100; 84145; 84443; 84484; 85014; 85018; 86850; 86900; 86920; 87070; 87077; 93005; 93306; 93970; 94640; 96365; 96366; 96368; 97162; 99285; A9558; J0696; J0885; J1200; J1642; J1644; J1650; J1956; J2270; J2405; J2930; J3370; J3490; J7030; J7040; J7050; J7620; P9016; Q0163; Q9967

== ENCOUNTER 2018-08-26 16:07 | Inpatient (IN) | payer MEDICARE, MEDICAID ==
[~2018-08-26] VITALS: Ht 165.1 cm; Wt 56.2 kg
[~2018-08-26 16:07] MED LIST changes: +AMLO10TA80 PO; +DOXY100C2 PO; +LABE200T28 PO; +LEVE750T4 MT; +LEVO75TA7 PO
[2018-08-26] MEDS ORDERED: CLONIDINE 0.1MG TABLET PO ONE (17:15)
[2018-08-26 17:55] LABS: HEMATOCRIT. 34.6 % (36.0-48.0); HEMOGLOBIN. 11.3 g/dL (12.0-16.0); MEAN CORPUSCULAR HEMOGLOBIN 26.8 pg (28.0-32.0); MEAN CORPUSCULAR VOLUME 82.6 fL (81.0-99.0); MEAN PLATELET VOLUME 8.3 fl (7.4-10.4); PLATELET 147 x1000/uL (130-400); RED BLOOD CELL COUNT 4.19 mill/uL (4.2-5.4)
[2018-08-26 18:00] LABS: CHLORIDE 101 mEq/L (98-107)
[2018-08-26 18:17] LABS: PLATELET ESTIMATE NORMAL
[2018-08-27] VITALS: BP 178/104
[2018-08-27 00:45] VITALS: BP 178/104
[2018-08-27] MEDS: CLONIDINE 0.3MG TABLET PO SCH ×4 (01:53→21:38)
[2018-08-27] MEDS: ACETAMINOPHEN 325MG TABLET PO PRN ×2 (01:54→22:14)
[2018-08-27 03:44] VITALS: BP 164/89
[2018-08-27] MEDS: HYDRALAZINE HCL 50MG TABLET PO SCH ×3 (06:31→21:37)
[2018-08-27 06:33] LABS: HEMATOCRIT. 32.5 % (36.0-48.0); HEMOGLOBIN. 10.7 g/dL (12.0-16.0); MEAN CORPUSCULAR HEMOGLOBIN 27.5 pg (28.0-32.0); MEAN CORPUSCULAR VOLUME 83.3 fL (81.0-99.0); MEAN PLATELET VOLUME 8.9 fl (7.4-10.4); PLATELET 133 x1000/uL (130-400); RED CELL DISTRIBUTION WIDTH 19.8 % (11.6-14.6)
[2018-08-27] MEDS ORDERED: LEVOTHYROXINE SODIUM 75MCG TABLET PO SCH (07:20)
[2018-08-27] MEDS: ENOXAPARIN 30MG/0.3ML SYR SUBCUT SCH (10:16)
[2018-08-27 11:51] VITALS: BP 157/90
[2018-08-27 13:49] LABS: PLATELET ESTIMATE NORMAL
[2018-08-27 15:50] VITALS: BP 123/82
[2018-08-27] MEDS: DIPHENHYDRAMINE 50MG/ML VIAL IV PRN (16:11)
[2018-08-27] MEDS: SEVELAMER CARBONATE 800 MG TABLET PO SCH (18:50)
[2018-08-27] MEDS: FOLIC ACID/VITAMIN B COMP W-C TABLET PO SCH (18:51)
[2018-08-27 20:11] VITALS: BP 112/73
[2018-08-27] MEDS ORDERED: HYDROCODONE/ACETAMINOPHEN 5/325MG TABLET PO PRN (22:30)
[2018-08-27] MEDS: MORPHINE SULFATE 2 MG/ML CPJ (NOT FOR IM USE) IV PRN (23:16)
[2018-08-28 00:22] VITALS: BP 127/59
[2018-08-28] MEDS: DIPHENHYDRAMINE 50MG/ML VIAL IV PRN ×4 (03:10→21:32)
[2018-08-28 04:25] VITALS: BP 142/75
[2018-08-28] MEDS: HYDRALAZINE HCL 50MG TABLET PO SCH ×3 (06:22→21:34)
[2018-08-28] MEDS: CLONIDINE 0.3MG TABLET PO SCH ×3 (06:22→21:32)
[2018-08-28] MEDS: LEVOTHYROXINE SODIUM 150MCG TABLET PO SCH (06:22)
[2018-08-28 06:35] LABS: BASOPHILS % 1.3 % (0.0-2.0); EOSINOPHILS % 6.6 % (0.0-5.0); HEMATOCRIT. 32.8 % (36.0-48.0); HEMOGLOBIN. 10.7 g/dL (12.0-16.0); MEAN CORPUSCULAR HEMOGLOBIN 27.2 pg (28.0-32.0); MEAN CORPUSCULAR VOLUME 82.9 fL (81.0-99.0); MEAN PLATELET VOLUME 8.5 fl (7.4-10.4); MONOCYTES % 13.2 % (2.0-8.0); NEUTROPHILS % 44.9 % (40.0-76.0); PLATELET 138 x1000/uL (130-400); RED BLOOD CELL COUNT 3.95 mill/uL (4.2-5.4); RED CELL DISTRIBUTION WIDTH 19.6 % (11.6-14.6)
[2018-08-28 08:00] VITALS: BP 138/77
[2018-08-28] MEDS: SEVELAMER CARBONATE 800 MG TABLET PO SCH ×3 (09:03→18:30)
[2018-08-28] MEDS: FOLIC ACID/VITAMIN B COMP W-C TABLET PO SCH (09:03)
[2018-08-28] MEDS: ENOXAPARIN 30MG/0.3ML SYR SUBCUT SCH (09:50)
[2018-08-28 12:00] VITALS: BP 137/89
[2018-08-28 15:29] VITALS: BP 160/92
[2018-08-28 20:00] VITALS: BP 176/98
[2018-08-29] VITALS (7 sets, daily range): BP systolic 148–174; BP diastolic 80–99
[2018-08-29] MEDS: FAMOTIDINE 20MG TABLET PO SCH ×2 (00:06→09:14)
[2018-08-29] MEDS: DIPHENHYDRAMINE 50MG/ML VIAL IV PRN ×3 (05:58→21:34)
[2018-08-29] MEDS: SEVELAMER CARBONATE 800 MG TABLET PO SCH ×3 (06:26→17:50)
[2018-08-29] MEDS: LEVOTHYROXINE SODIUM 150MCG TABLET PO SCH (06:27)
[2018-08-29] MEDS: CLONIDINE 0.3MG TABLET PO SCH ×4 (06:27→21:36)
[2018-08-29] MEDS: HYDRALAZINE HCL 50MG TABLET PO SCH ×4 (06:28→21:35)
[2018-08-29 06:44] LABS: BASOPHILS % 0.8 % (0.0-2.0); EOSINOPHILS % 5.5 % (0.0-5.0); HEMATOCRIT. 34.5 % (36.0-48.0); HEMOGLOBIN. 11.3 g/dL (12.0-16.0); LYMPHOCYTES % 33.8 % (20.0-50.0); MEAN CORPUSCULAR HEMOGLOBIN 27.6 pg (28.0-32.0); MEAN CORPUSCULAR VOLUME 84.3 fL (81.0-99.0); MEAN PLATELET VOLUME 8.9 fl (7.4-10.4); MONOCYTES % 11.5 % (2.0-8.0); NEUTROPHILS % 48.4 % (40.0-76.0); PLATELET 119 x1000/uL (130-400); RED CELL DISTRIBUTION WIDTH 19.6 % (11.6-14.6)
[2018-08-29 07:52] LABS: PHOSPHORUS 4.9 mg/dL (2.5-4.9)
[2018-08-29] MEDS: MINOXIDIL 2.5MG TABLET PO SCH (09:00)
[2018-08-29] MEDS: ENOXAPARIN 30MG/0.3ML SYR SUBCUT SCH (09:13)
[2018-08-29] MEDS: FOLIC ACID/VITAMIN B COMP W-C TABLET PO SCH (09:14)
[2018-08-29] MEDS ORDERED: HEPARIN SODIUM 1,000 UNIT/1ML VIAL IV NR (15:45)
[2018-08-29] MEDS: CLONIDINE 0.1MG TABLET PO PRN ×2 (18:54→23:47)
[2018-08-30] VITALS: BP 182/99
[2018-08-30] MEDS ORDERED: HYDRALAZINE HCL 25MG TABLET PO NR (00:30)
[2018-08-30] MEDS ORDERED: HYDRALAZINE 20MG/ML VIAL IV PRN (00:30)
[2018-08-30] MEDS: DIPHENHYDRAMINE 50MG/ML VIAL IV PRN ×2 (03:57→08:54)
[2018-08-30] MEDS: MORPHINE SULFATE 2 MG/ML CPJ (NOT FOR IM USE) IV PRN (03:57)
[2018-08-30 04:00] VITALS: BP 165/87
[2018-08-30 06:26] LABS: BASOPHILS % 0.6 % (0.0-2.0); EOSINOPHILS % 4.6 % (0.0-5.0); HEMATOCRIT. 33.1 % (36.0-48.0); LYMPHOCYTES % 26.5 % (20.0-50.0); MEAN CORPUSCULAR HEMOGLOBIN 27.5 pg (28.0-32.0); MEAN CORPUSCULAR VOLUME 82.8 fL (81.0-99.0); MONOCYTES % 13.2 % (2.0-8.0); NEUTROPHILS % 55.1 % (40.0-76.0); PLATELET 91 x1000/uL (130-400); RED CELL DISTRIBUTION WIDTH 19.3 % (11.6-14.6)
[2018-08-30] MEDS: LEVOTHYROXINE SODIUM 150MCG TABLET PO SCH (06:45)
[2018-08-30] MEDS: CLONIDINE 0.3MG TABLET PO SCH ×2 (06:45→13:09)
[2018-08-30] MEDS: HYDRALAZINE HCL 100MG TABLET PO SCH ×2 (06:45→13:07)
[2018-08-30 08:06] VITALS: BP 163/85
[2018-08-30] MEDS: SEVELAMER CARBONATE 800 MG TABLET PO SCH ×2 (08:53→13:10)
[2018-08-30] MEDS: FAMOTIDINE 20MG TABLET PO SCH (08:53)
[2018-08-30] MEDS: FOLIC ACID/VITAMIN B COMP W-C TABLET PO SCH (08:53)
[2018-08-30] MEDS: ENOXAPARIN 30MG/0.3ML SYR SUBCUT SCH (08:54)
[2018-08-30] MEDS: MINOXIDIL 2.5MG TABLET PO SCH (08:54)
[2018-08-30] MEDS: ACETAMINOPHEN 325MG TABLET PO PRN (08:55)
[2018-08-30] MEDS ORDERED: AMLODIPINE 10MG TABLET PO SCH (09:30)
[2018-08-30 12:32] VITALS: BP 134/71
[2018-08-30 14:58] VITALS: BP 134/71
[2018-08-30 16:31] VITALS: BP 121/70
== END 2018-08-30 17:36 | DRG 682 ==
LOC: ER 16:07 → 6WST 22:41 → EDBEDREQTM 22:47 → EDBEDREQ 22:47 → ENRESERV 22:58 → 6WST 08-27
PROVIDERS: ADMIT Internal Medicine Nephrology; ATTEND Internal Medicine Nephrology
PROC: 5A1D70Z Performance of Urinary Filtration, Intermittent, Less than 6 Hours Per Day (ICD-10-PCS; principal; 2018-08-29)
DX: I12.0 Hypertensive chronic kidney disease with stage 5 chronic kidney disease or end stage renal disease (principal); N18.6 End stage renal disease; E44.0 Moderate protein-calorie malnutrition; E87.1 Hypo-osmolality and hyponatremia; B19.20 Unspecified viral hepatitis C without hepatic coma; D64.9 Anemia, unspecified; E03.9 Hypothyroidism, unspecified; R53.81 Other malaise; R26.9 Unspecified abnormalities of gait and mobility; E87.8 Other disorders of electrolyte and fluid balance, not elsewhere classified; G40.909 Epilepsy, unspecified, not intractable, without status epilepticus; Z59.0 Homelessness; Z99.2 Dependence on renal dialysis; Z79.890 Hormone replacement therapy; Z79.899 Other long term (current) drug therapy; Z82.49 Family history of ischemic heart disease and other diseases of the circulatory system; Z82.5 Family history of asthma and other chronic lower respiratory diseases; Z83.3 Family history of diabetes mellitus; Z86.14 Personal history of Methicillin resistant Staphylococcus aureus infection; Z91.041 Radiographic dye allergy status; Z88.0 Allergy status to penicillin; Z88.6 Allergy status to analgesic agent; Z88.8 Allergy status to other drugs, medicaments and biological substances; Z91.040 Latex allergy status; Z91.013 Allergy to seafood; Z91.048 Other nonmedicinal substance allergy status; Z87.440 Personal history of urinary (tract) infections; Z68.20 Body mass index [BMI] 20.0-20.9, adult
CPT/HCPCS: 36415; 71045; 80048; 80051; 83880; 84100; 84443; 84484; 93005; 93970; 97161; 99285; C1893; J0360; J1200; J1644; J1650; J2270

== ENCOUNTER 2018-10-17 22:08 | Inpatient (IN) | payer MEDICARE, MEDICAID ==
[~2018-10-17] VITALS: Ht 157.5 cm; Wt 61.7 kg
[~2018-10-17 22:08] MED LIST changes: -AMLO10TA80 PO; -CINA30 PO; -DOXY100C2 PO; -LABE200T28 PO; -LEVE750T4 MT; -LEVO150T8 PO
[2018-10-17] MEDS ORDERED: VANCOMYCIN 1 G PREMIX 200 ML IV ONE (23:00)
[2018-10-17] MEDS ORDERED: SODIUM CHLORIDE 0.9% 1000ML BAG (SEPSIS BOLUS) IV ONE (23:00)
[2018-10-17] MEDS ORDERED: LEVOFLOXACIN 750MG PREMIX 150 ML IV ONE (23:00)
[2018-10-17] MEDS ORDERED: ACETAMINOPHEN 325MG TABLET PO PRN (23:30)
[2018-10-17] MEDS ORDERED: ONDANSETRON HCL 4MG/2ML INJ IV PRN (23:30)
[2018-10-17] MEDS ORDERED: CLONIDINE 0.1MG TABLET PO PRN (23:30)
[2018-10-17] MEDS ORDERED: HYDROMORPHONE HCL/PF 2MG/ML CPJ IV PRN ×2 (23:30→23:45)
[2018-10-17] MEDS ORDERED: DOCUSATE SODIUM 100MG CAPSULE PO PRN (23:30)
[2018-10-18 00:30] LABS: BASOPHILS % 0.4 % (0.0-2.0); EOSINOPHILS % 0.8 % (0.0-5.0); HEMATOCRIT. 33.5 % (36.0-48.0); LYMPHOCYTES % 7.5 % (20.0-50.0); MEAN CORPUSCULAR HEMOGLOBIN 28.5 pg (28.0-32.0); MEAN CORPUSCULAR VOLUME 86.6 fL (81.0-99.0); MEAN PLATELET VOLUME 7.6 fl (7.4-10.4); MONOCYTES % 6.7 % (2.0-8.0); NEUTROPHILS % 84.6 % (40.0-76.0); PLATELET 210 x1000/uL (130-400); RED BLOOD CELL COUNT 3.87 mill/uL (4.2-5.4); RED CELL DISTRIBUTION WIDTH 18.1 % (11.6-14.6)
[2018-10-18 00:35] LABS: CHLORIDE 97 mEq/L (98-107)
[2018-10-18 00:42] LABS: INR 1.1
[2018-10-18] MEDS ORDERED: HYDROMORPHONE HCL/PF 2MG/ML CPJ IV PRN ×2 (02:50→05:42)
[2018-10-18 06:31] VITALS: BP 125/61
[2018-10-18 08:08] VITALS: BP 129/74
[2018-10-18] MEDS: ENOXAPARIN 30MG/0.3ML SYR SUBCUT SCH (08:26)
[2018-10-18] MEDS: SODIUM CHLORIDE 0.45% 1,000 ML IV SCH (08:26)
[2018-10-18 08:30] LABS: HEMATOCRIT. 31.9 % (36.0-48.0); HEMOGLOBIN. 10.4 g/dL (12.0-16.0); MEAN CORPUSCULAR HEMOGLOBIN 28.2 pg (28.0-32.0); MEAN CORPUSCULAR VOLUME 86.8 fL (81.0-99.0); MEAN PLATELET VOLUME 7.6 fl (7.4-10.4); PLATELET 210 x1000/uL (130-400); RED BLOOD CELL COUNT 3.68 mill/uL (4.2-5.4); RED CELL DISTRIBUTION WIDTH 17.6 % (11.6-14.6)
[2018-10-18 08:44] LABS: CHLORIDE 99 mEq/L (98-107)
[2018-10-18 08:54] LABS: LDL CHOLESTEROL 63 mg/dL (5-100)
[2018-10-18 08:56] LABS: HDL CHOLESTEROL 47 mg/dL (40-59)
[2018-10-18] MEDS ORDERED: MORPHINE SULFATE 2 MG/ML CPJ (NOT FOR IM USE) IV PRN (09:15)
[2018-10-18] MEDS: FOLIC ACID/VITAMIN B COMP W-C TABLET PO SCH (09:48)
[2018-10-18] MEDS: LEVOTHYROXINE SODIUM 50MCG TABLET PO SCH (09:48)
[2018-10-18 10:10] VITALS: BP 119/52
[2018-10-18] MEDS ORDERED: VANCOMYCIN 500 MG PREMIX 100 ML IV SCH (11:00)
[2018-10-18] MEDS ORDERED: THROMBIN (BOVINE) 5000 UNITS/VIAL TOP ONE (11:27)
[2018-10-18] MEDS ORDERED: BACITRACIN 15GM TUBE TOP ONE (11:27)
[2018-10-18] MEDS ORDERED: LIDOCAINE HCL 1% 20ML VIAL (Pyxis) INJ ONE (11:27)
[2018-10-18] MEDS ORDERED: BACITRACIN 50,000 UNITS/VIAL ONE (11:28)
[2018-10-18] MEDS ORDERED: NORMAL SALINE 0.9% 10 ML SYR ONE (11:28)
[2018-10-18] MEDS ORDERED: SODIUM CHLORIDE 0.9% 1,000 ML ONE (11:28)
[2018-10-18] MEDS ORDERED: BUPIVACAINE HCL/PF 0.5% (5MG/ML) 10ML ONE (11:28)
[2018-10-18 11:55] LABS: PLATELET ESTIMATE NORMAL
[2018-10-18] MEDS: SEVELAMER CARBONATE 800 MG TABLET PO SCH ×2 (13:28→18:13)
[2018-10-18] MEDS: HYDRALAZINE HCL 25MG TABLET PO SCH ×2 (13:32→22:02)
[2018-10-18] MEDS ORDERED: HEPARIN SODIUM 1,000 UNIT/1ML VIAL IV ONE (13:45)
[2018-10-18] MEDS ORDERED: SUCCINYLCHOLINE CHLORIDE 200MG/10ML IV ONE (14:21)
[2018-10-18] MEDS ORDERED: LIDOCAINE HCL/PF 1% 10 MG/ML 5ML VIAL ONE (14:24)
[2018-10-18] MEDS ORDERED: PROPOFOL 200MG/20ML VIAL IV ONE (14:24)
[2018-10-18] MEDS ORDERED: HYDROMORPHONE HCL/PF 2MG/ML (OR) ONE (15:00)
[2018-10-18] MEDS: CEFTAZIDIME PENTAHYDRATE 1 G in DEXTROSE 5% WATER 50 ML IV SCH (18:12)
[2018-10-18 20:00] VITALS: BP 126/61
[2018-10-18 22:00] VITALS: BP 110/49
[2018-10-19] VITALS (12 sets, daily range): BP systolic 107–141; BP diastolic 48–74
[2018-10-19] MEDS: SODIUM CHLORIDE 0.45% 1,000 ML IV SCH ×2 (01:28→21:28)
[2018-10-19] MEDS: MORPHINE SULFATE 2 MG/ML CPJ (NOT FOR IM USE) IV PRN ×5 (03:31→23:00)
[2018-10-19] MEDS: LEVOTHYROXINE SODIUM 50MCG TABLET PO SCH (06:14)
[2018-10-19] MEDS: HYDRALAZINE HCL 25MG TABLET PO SCH ×3 (06:14→21:33)
[2018-10-19] MEDS: FOLIC ACID/VITAMIN B COMP W-C TABLET PO SCH (08:21)
[2018-10-19] MEDS: SEVELAMER CARBONATE 800 MG TABLET PO SCH ×3 (08:21→17:41)
[2018-10-19] MEDS: ENOXAPARIN 30MG/0.3ML SYR SUBCUT SCH (08:21)
[2018-10-19] MEDS: METOPROLOL TARTRATE 25MG TABLET PO SCH ×2 (10:20→21:33)
[2018-10-19 10:55] LABS: BASOPHILS % 0.9 % (0.0-2.0); EOSINOPHILS % 0.5 % (0.0-5.0); HEMATOCRIT. 29.3 % (36.0-48.0); HEMOGLOBIN. 9.8 g/dL (12.0-16.0); LYMPHOCYTES % 11.1 % (20.0-50.0); MEAN CORPUSCULAR HEMOGLOBIN 28.8 pg (28.0-32.0); MEAN CORPUSCULAR VOLUME 86.4 fL (81.0-99.0); MEAN PLATELET VOLUME 7.9 fl (7.4-10.4); MONOCYTES % 10.1 % (2.0-8.0); NEUTROPHILS % 77.4 % (40.0-76.0); PLATELET 236 x1000/uL (130-400); RED BLOOD CELL COUNT 3.39 mill/uL (4.2-5.4); RED CELL DISTRIBUTION WIDTH 17.3 % (11.6-14.6)
[2018-10-19] MEDS ORDERED: HEPARIN SODIUM 1,000 UNIT/1ML VIAL IV NR (13:15)
[2018-10-19] MEDS: CEFTAZIDIME PENTAHYDRATE 1 G in DEXTROSE 5% WATER 50 ML IV SCH (15:42)
[2018-10-19] MEDS ORDERED: VANCOMYCIN 1 G PREMIX 200 ML IV SCH (17:00)
[2018-10-19] MEDS ORDERED: LEVOFLOXACIN 250MG PREMIX 50 ML IV SCH (21:00)
[2018-10-20] VITALS: BP 108/54
[2018-10-20 02:00] VITALS: BP 108/52
[2018-10-20 04:00] VITALS: BP 123/60
[2018-10-20 06:00] VITALS: BP 111/78
[2018-10-20] MEDS: HYDRALAZINE HCL 25MG TABLET PO SCH (06:07)
[2018-10-20] MEDS: LEVOTHYROXINE SODIUM 50MCG TABLET PO SCH (06:07)
[2018-10-20] MEDS: MORPHINE SULFATE 2 MG/ML CPJ (NOT FOR IM USE) IV PRN (06:07)
[2018-10-20 06:49] LABS: BASOPHILS % 0.7 % (0.0-2.0); EOSINOPHILS % 0.9 % (0.0-5.0); HEMATOCRIT. 28.2 % (36.0-48.0); HEMOGLOBIN. 9.5 g/dL (12.0-16.0); LYMPHOCYTES % 12.2 % (20.0-50.0); MEAN CORPUSCULAR VOLUME 86.3 fL (81.0-99.0); MEAN PLATELET VOLUME 7.6 fl (7.4-10.4); MONOCYTES % 12.2 % (2.0-8.0); PLATELET 229 x1000/uL (130-400); RED BLOOD CELL COUNT 3.26 mill/uL (4.2-5.4); RED CELL DISTRIBUTION WIDTH 17.2 % (11.6-14.6)
[2018-10-20] MEDS: FOLIC ACID/VITAMIN B COMP W-C TABLET PO SCH (07:42)
[2018-10-20] MEDS: SEVELAMER CARBONATE 800 MG TABLET PO SCH ×2 (07:43→12:32)
[2018-10-20] MEDS: ENOXAPARIN 30MG/0.3ML SYR SUBCUT SCH (07:43)
[2018-10-20] MEDS: METOPROLOL TARTRATE 25MG TABLET PO SCH (07:43)
[2018-10-20 08:00] VITALS: BP 123/61
[2018-10-20 09:34] VITALS: BP 121/68
== END 2018-10-20 14:00 | DRG 907 ==
LOC: EDBEDREQ 23:38 → EDBEDREQTM 23:38 → CANRESERV 23:48 → ENRESERV 23:48 → ER 23:59 → 3WST 10-18 00:01 → EDBEDREQTM 10-18 00:02 → EDBEDREQDT 10-18 00:02 → EDBEDREQSVC 10-18 00:02 → EDBEDREQTM 10-18 02:27 → ENRESERV 10-18 02:32
PROVIDERS: ADMIT Internal Medicine Nephrology; ATTEND Internal Medicine Nephrology
PROC: 06CY0ZZ Extirpation of Matter from Lower Vein, Open Approach (ICD-10-PCS; principal; 2018-10-18)
PROC: 04CY0ZZ Extirpation of Matter from Lower Artery, Open Approach (ICD-10-PCS; 2018-10-18)
PROC: 05HY33Z Insertion of Infusion Device into Upper Vein, Percutaneous Approach (ICD-10-PCS; 2018-10-18)
PROC: B54MZZA Ultrasonography of Right Upper Extremity Veins, Guidance (ICD-10-PCS; 2018-10-18)
PROC: 5A1D70Z Performance of Urinary Filtration, Intermittent, Less than 6 Hours Per Day (ICD-10-PCS; 2018-10-18)
DX: I97.638 Postprocedural hematoma of a circulatory system organ or structure following other circulatory system procedure (principal); A41.9 Sepsis, unspecified organism; N18.6 End stage renal disease; I12.0 Hypertensive chronic kidney disease with stage 5 chronic kidney disease or end stage renal disease; D64.9 Anemia, unspecified; E03.9 Hypothyroidism, unspecified; B19.20 Unspecified viral hepatitis C without hepatic coma; Y83.2 Surgical operation with anastomosis, bypass or graft as the cause of abnormal reaction of the patient, or of later complication, without mention of misadventure at the time of the procedure; G40.909 Epilepsy, unspecified, not intractable, without status epilepticus; Y84.1 Kidney dialysis as the cause of abnormal reaction of the patient, or of later complication, without mention of misadventure at the time of the procedure; Z88.0 Allergy status to penicillin; Z88.8 Allergy status to other drugs, medicaments and biological substances; Z91.041 Radiographic dye allergy status; Z91.040 Latex allergy status; Z91.013 Allergy to seafood; Z79.899 Other long term (current) drug therapy; Y92.89 Other specified places as the place of occurrence of the external cause; Z82.49 Family history of ischemic heart disease and other diseases of the circulatory system; Z82.5 Family history of asthma and other chronic lower respiratory diseases; Z83.3 Family history of diabetes mellitus; Z99.2 Dependence on renal dialysis
CPT/HCPCS: 36415; 36573; 71045; 80048; 80061; 80202; 83605; 84145; 84484; 87077; 87186; 88305; 93005; 93306; 93970; 99291; C1725; J0330; J0713; J1170; J1644; J1650; J1956; J2270; J2405; J2704; J3370; J3490; J7030; J7060

== ENCOUNTER 2018-11-25 21:18 | Inpatient (IN) | payer MEDICARE, MEDICAID ==
[~2018-11-25] VITALS: Ht 153.2 cm; Wt 56.2 kg
[2018-11-26 00:02] LABS: BASOPHILS % 0.7 % (0.0-2.0); EOSINOPHILS % 0.7 % (0.0-5.0); HEMOGLOBIN. 10.9 g/dL (12.0-16.0); LYMPHOCYTES % 11.8 % (20.0-50.0); MEAN CORPUSCULAR HEMOGLOBIN 30.4 pg (28.0-32.0); MEAN CORPUSCULAR VOLUME 91.6 fL (81.0-99.0); MEAN PLATELET VOLUME 7.9 fl (7.4-10.4); MONOCYTES % 8.1 % (2.0-8.0); NEUTROPHILS % 78.7 % (40.0-76.0); PLATELET 118 x1000/uL (130-400); RED CELL DISTRIBUTION WIDTH 19.6 % (11.6-14.6)
[2018-11-26 00:08] LABS: CHLORIDE 97 mEq/L (98-107)
[2018-11-26] MEDS ORDERED: LEVOFLOXACIN 750MG PREMIX 150 ML IV SCH (02:15)
[2018-11-26 04:45] VITALS: BP 128/69
[2018-11-26] MEDS ORDERED: ACETAMINOPHEN 325MG TABLET PO PRN (07:45)
[2018-11-26] MEDS ORDERED: MAGNESIUM/ALUMINUM HYDROXIDE/SIMETHICONE 30ML UDC PO PRN (07:45)
[2018-11-26] MEDS ORDERED: DOCUSATE SODIUM 100MG CAPSULE PO PRN (07:45)
[2018-11-26] MEDS ORDERED: GUAIFENESIN 200MG/10ML SUGAR FREE UDC PO PRN (07:45)
[2018-11-26] MEDS ORDERED: LORAZEPAM 2MG/ML CPJ IV PRN (07:45)
[2018-11-26] MEDS ORDERED: NA PHOS,M-B/NA PHOS,DI-BA ENEMA 118ML PR PRN (07:45)
[2018-11-26 08:00] VITALS: BP 167/87
[2018-11-26] MEDS: ASPIRIN 81MG EC TABLET PO SCH (08:21)
[2018-11-26 10:38] VITALS: BP 136/64
[2018-11-26] MEDS: MORPHINE SULFATE 2 MG/ML CPJ (NOT FOR IM USE) IV PRN ×2 (11:19→17:44)
[2018-11-26 12:02] VITALS: BP 118/76
[2018-11-26] MEDS: HYDRALAZINE HCL 100MG TABLET PO SCH ×2 (15:14→20:55)
[2018-11-26] MEDS: DIPHENHYDRAMINE 50MG/ML VIAL IV PRN ×2 (15:17→21:00)
[2018-11-26 15:35] VITALS: BP 144/67
[2018-11-26] MEDS ORDERED: IPRATROPIUM/ALBUTEROL 0.5-3(2.5)MG/3ML NEB HHN PRN (15:45)
[2018-11-26] MEDS: SEVELAMER CARBONATE 800 MG TABLET PO SCH (17:10)
[2018-11-26 20:08] VITALS: BP 140/57
[2018-11-26] MEDS: IPRATROPIUM/ALBUTEROL 0.5-3(2.5)MG/3ML NEB HHN SCH (20:13)
[2018-11-26] MEDS: GUAIFENESIN 600MG ER TABLET PO SCH (20:55)
[2018-11-27 00:48] VITALS: BP 144/69
[2018-11-27] MEDS: IPRATROPIUM/ALBUTEROL 0.5-3(2.5)MG/3ML NEB HHN SCH ×4 (01:03→20:54)
[2018-11-27 04:31] VITALS: BP 144/74
[2018-11-27] MEDS: HYDRALAZINE HCL 100MG TABLET PO SCH ×3 (05:34→21:31)
[2018-11-27] MEDS: DIPHENHYDRAMINE 50MG/ML VIAL IV PRN ×2 (05:38→21:30)
[2018-11-27 06:00] LABS: INR 1.3; PROTHROMBIN TIME 12.9 sec (9.6-11.0)
[2018-11-27 06:01] LABS: BASOPHILS % 0.5 % (0.0-2.0); EOSINOPHILS % 0.4 % (0.0-5.0); HEMATOCRIT. 31.8 % (36.0-48.0); HEMOGLOBIN. 10.5 g/dL (12.0-16.0); MEAN CORPUSCULAR HEMOGLOBIN 29.9 pg (28.0-32.0); MEAN PLATELET VOLUME 8.4 fl (7.4-10.4); MONOCYTES % 9.7 % (2.0-8.0); NEUTROPHILS % 73.4 % (40.0-76.0); PLATELET 134 x1000/uL (130-400); RED CELL DISTRIBUTION WIDTH 18.5 % (11.6-14.6)
[2018-11-27 06:17] LABS: CHLORIDE 96 mEq/L (98-107)
[2018-11-27 06:26] LABS: LDL CHOLESTEROL 97 mg/dL (5-100)
[2018-11-27 06:28] LABS: HDL CHOLESTEROL 75 mg/dL (40-59)
[2018-11-27] MEDS: MORPHINE SULFATE 2 MG/ML CPJ (NOT FOR IM USE) IV PRN (07:05)
[2018-11-27] MEDS: ONDANSETRON HCL 4MG/2ML INJ IV PRN (07:14)
[2018-11-27 08:00] VITALS: BP 144/74
[2018-11-27] MEDS: LEVOTHYROXINE SODIUM 75MCG TABLET PO SCH (08:40)
[2018-11-27] MEDS: ASPIRIN 81MG EC TABLET PO SCH (08:41)
[2018-11-27] MEDS: FOLIC ACID 1MG TABLET PO SCH (08:41)
[2018-11-27] MEDS: GUAIFENESIN 600MG ER TABLET PO SCH ×2 (08:41→21:31)
[2018-11-27] MEDS: SEVELAMER CARBONATE 800 MG TABLET PO SCH ×3 (08:41→18:10)
[2018-11-27 12:00] VITALS: BP 140/62
[2018-11-27 16:00] VITALS: BP 155/88
[2018-11-27] MEDS ORDERED: HEPARIN SODIUM 1,000 UNIT/1ML VIAL IV NR (17:15)
[2018-11-27 20:00] VITALS: BP 113/50
[2018-11-27] MEDS: LEVOFLOXACIN 250MG PREMIX 50 ML IV SCH (21:31)
[2018-11-28] VITALS (17 sets, daily range): BP systolic 97–199; BP diastolic 45–96
[2018-11-28] MEDS ORDERED: LEVOFLOXACIN 500MG PREMIX 100 ML IV SCH (02:00)
[2018-11-28] MEDS: IPRATROPIUM/ALBUTEROL 0.5-3(2.5)MG/3ML NEB HHN SCH ×3 (03:18→20:18)
[2018-11-28 05:53] LABS: BASOPHILS % 0.7 % (0.0-2.0); EOSINOPHILS % 1.4 % (0.0-5.0); HEMOGLOBIN. 10.8 g/dL (12.0-16.0); LYMPHOCYTES % 18.8 % (20.0-50.0); MEAN CORPUSCULAR HEMOGLOBIN 30.1 pg (28.0-32.0); MEAN CORPUSCULAR VOLUME 91.8 fL (81.0-99.0); MEAN PLATELET VOLUME 8.6 fl (7.4-10.4); MONOCYTES % 11.9 % (2.0-8.0); NEUTROPHILS % 67.2 % (40.0-76.0); PLATELET 149 x1000/uL (130-400)
[2018-11-28] MEDS: HYDRALAZINE HCL 100MG TABLET PO SCH ×3 (06:00→22:20)
[2018-11-28] MEDS: LEVOTHYROXINE SODIUM 75MCG TABLET PO SCH (06:53)
[2018-11-28] MEDS ORDERED: LIDOCAINE HCL 1% 20ML VIAL (Pyxis) INJ ONE (06:55)
[2018-11-28] MEDS ORDERED: THROMBIN (BOVINE) 5000 UNITS/VIAL TOP ONE (06:56)
[2018-11-28] MEDS ORDERED: BUPIVACAINE HCL/PF 0.5% (5MG/ML) 10ML ONE (06:56)
[2018-11-28] MEDS ORDERED: HEPARIN SODIUM 1,000 UNIT/1ML VIAL IV ONE (06:56)
[2018-11-28] MEDS ORDERED: BACITRACIN 50,000 UNITS/VIAL ONE (06:57)
[2018-11-28] MEDS ORDERED: BACITRACIN 15GM TUBE TOP ONE (07:20)
[2018-11-28] MEDS ORDERED: PROPOFOL 200MG/20ML VIAL IV ONE (07:26)
[2018-11-28] MEDS ORDERED: LIDOCAINE HCL/PF 1% 10 MG/ML 5ML VIAL ONE (07:28)
[2018-11-28] MEDS ORDERED: ROCURONIUM BROMIDE 10MG/ML VIAL 5ML IV ONE (07:53)
[2018-11-28] MEDS: SEVELAMER CARBONATE 800 MG TABLET PO SCH ×3 (08:10→18:41)
[2018-11-28] MEDS ORDERED: NEOSTIGMINE METHYLSULFATE 1MG/ML 10 ML VIAL ONE (08:27)
[2018-11-28] MEDS ORDERED: GLYCOPYRROLATE 0.2 MG/ML 2ML VIAL ONE (08:27)
[2018-11-28] MEDS ORDERED: ONDANSETRON HCL 4MG/2ML INJ ONE (08:30)
[2018-11-28] MEDS ORDERED: HYDROMORPHONE HCL/PF 2MG/ML (OR) ONE (08:35)
[2018-11-28] MEDS: GUAIFENESIN 600MG ER TABLET PO SCH ×2 (09:00→20:23)
[2018-11-28] MEDS ORDERED: ONDANSETRON HCL 4MG/2ML INJ IV PRN (09:00)
[2018-11-28] MEDS: ASPIRIN 81MG EC TABLET PO SCH (09:00)
[2018-11-28] MEDS: FOLIC ACID 1MG TABLET PO SCH (09:00)
[2018-11-28] MEDS ORDERED: HYDRALAZINE 20MG/ML VIAL IV PRN (09:00)
[2018-11-28] MEDS: HYDROMORPHONE HCL/PF 2MG/ML CPJ IV PRN ×4 (09:51→10:53)
[2018-11-28] MEDS: MORPHINE SULFATE 4 MG/ML CPJ (NOT FOR IM USE) IV PRN ×3 (15:04→23:38)
[2018-11-28 18:04] LABS: BASOPHILS % 0.6 % (0.0-2.0); EOSINOPHILS % 0.7 % (0.0-5.0); HEMATOCRIT. 31.6 % (36.0-48.0); HEMOGLOBIN. 10.3 g/dL (12.0-16.0); MEAN CORPUSCULAR HEMOGLOBIN 30.2 pg (28.0-32.0); MEAN CORPUSCULAR VOLUME 92.8 fL (81.0-99.0); MEAN PLATELET VOLUME 8.2 fl (7.4-10.4); MONOCYTES % 9.2 % (2.0-8.0); NEUTROPHILS % 76.5 % (40.0-76.0); PLATELET 155 x1000/uL (130-400); RED CELL DISTRIBUTION WIDTH 18.7 % (11.6-14.6)
[2018-11-28] MEDS ORDERED: SODIUM CHLORIDE 0.9% IV NR (18:30)
[2018-11-28] MEDS ORDERED: DESMOPRESSIN ACETATE IV NR (18:30)
[2018-11-28] MEDS: CLONIDINE 0.1MG TABLET PO PRN (23:38)
[2018-11-29] VITALS (95 sets, daily range): BP systolic 127–180; BP diastolic 57–105
[2018-11-29 01:03] LABS: HEMOGLOBIN 10.1 g/dL (12.0-16.0)
[2018-11-29] MEDS: IPRATROPIUM/ALBUTEROL 0.5-3(2.5)MG/3ML NEB HHN SCH ×4 (02:35→20:39)
[2018-11-29] MEDS: MORPHINE SULFATE 4 MG/ML CPJ (NOT FOR IM USE) IV PRN ×4 (04:09→21:29)
[2018-11-29] MEDS: LEVOTHYROXINE SODIUM 75MCG TABLET PO SCH (06:33)
[2018-11-29] MEDS: HYDRALAZINE HCL 100MG TABLET PO SCH ×3 (06:33→21:20)
[2018-11-29] MEDS: DIPHENHYDRAMINE 50MG/ML VIAL IV PRN ×2 (06:38→20:28)
[2018-11-29 07:10] LABS: BASOPHILS % 0.9 % (0.0-2.0); HEMATOCRIT. 28.9 % (36.0-48.0); HEMOGLOBIN. 9.4 g/dL (12.0-16.0); LYMPHOCYTES % 17.6 % (20.0-50.0); MEAN CORPUSCULAR HEMOGLOBIN 29.7 pg (28.0-32.0); MEAN CORPUSCULAR VOLUME 91.6 fL (81.0-99.0); MEAN PLATELET VOLUME 8.5 fl (7.4-10.4); MONOCYTES % 11.2 % (2.0-8.0); NEUTROPHILS % 69.3 % (40.0-76.0); PLATELET 159 x1000/uL (130-400); RED BLOOD CELL COUNT 3.16 mill/uL (4.2-5.4); RED CELL DISTRIBUTION WIDTH 18.5 % (11.6-14.6)
[2018-11-29] MEDS: ASPIRIN 81MG EC TABLET PO SCH (09:00)
[2018-11-29] MEDS: FOLIC ACID 1MG TABLET PO SCH (10:25)
[2018-11-29] MEDS: GUAIFENESIN 600MG ER TABLET PO SCH ×2 (10:25→21:20)
[2018-11-29] MEDS: SEVELAMER CARBONATE 800 MG TABLET PO SCH ×3 (10:25→17:48)
[2018-11-29] MEDS ORDERED: PHENOL/SODIUM PHENOLATE 1.4% SRPAY 177ML MM NR (11:00)
[2018-11-29] MEDS ORDERED: HEPARIN SODIUM 1,000 UNIT/1ML VIAL IV NR (12:30)
[2018-11-29 13:26] LABS: HEMATOCRIT 30.3 % (36.0-48.0); HEMOGLOBIN 9.7 g/dL (12.0-16.0)
[2018-11-29] MEDS: LEVOFLOXACIN 250MG PREMIX 50 ML IV SCH (20:15)
[2018-11-29 20:33] LABS: HEMATOCRIT 30.6 % (36.0-48.0); HEMOGLOBIN 9.9 g/dL (12.0-16.0)
[2018-11-29] MEDS: CLONIDINE 0.1MG TABLET PO PRN (20:36)
[2018-11-30] VITALS (83 sets, daily range): BP systolic 85–163; BP diastolic 51–89
[2018-11-30] MEDS: IPRATROPIUM/ALBUTEROL 0.5-3(2.5)MG/3ML NEB HHN SCH ×4 (01:15→20:53)
[2018-11-30 02:08] LABS: HEMATOCRIT 29.1 % (36.0-48.0); HEMOGLOBIN 9.6 g/dL (12.0-16.0)
[2018-11-30] MEDS: DIPHENHYDRAMINE 50MG/ML VIAL IV PRN ×2 (05:55→18:39)
[2018-11-30] MEDS: HYDRALAZINE HCL 100MG TABLET PO SCH ×3 (05:56→21:36)
[2018-11-30] MEDS: MORPHINE SULFATE 4 MG/ML CPJ (NOT FOR IM USE) IV PRN ×3 (05:56→18:40)
[2018-11-30] MEDS: LEVOTHYROXINE SODIUM 75MCG TABLET PO SCH (06:33)
[2018-11-30 07:43] LABS: BASOPHILS % 0.5 % (0.0-2.0); EOSINOPHILS % 1.1 % (0.0-5.0); HEMOGLOBIN. 9.6 g/dL (12.0-16.0); LYMPHOCYTES % 9.1 % (20.0-50.0); MEAN CORPUSCULAR HEMOGLOBIN 29.7 pg (28.0-32.0); MEAN CORPUSCULAR VOLUME 92.6 fL (81.0-99.0); MEAN PLATELET VOLUME 8.4 fl (7.4-10.4); MONOCYTES % 7.3 % (2.0-8.0); PLATELET 169 x1000/uL (130-400); RED BLOOD CELL COUNT 3.23 mill/uL (4.2-5.4); RED CELL DISTRIBUTION WIDTH 18.5 % (11.6-14.6)
[2018-11-30] MEDS: GUAIFENESIN 600MG ER TABLET PO SCH ×2 (08:24→20:52)
[2018-11-30] MEDS: SEVELAMER CARBONATE 800 MG TABLET PO SCH ×3 (08:24→17:53)
[2018-11-30] MEDS: FOLIC ACID 1MG TABLET PO SCH (08:24)
[2018-11-30] MEDS: ASPIRIN 81MG EC TABLET PO SCH (09:00)
[2018-11-30] MEDS: ONDANSETRON HCL 4MG/2ML INJ IV PRN (13:40)
[2018-12-01] MEDS: IPRATROPIUM/ALBUTEROL 0.5-3(2.5)MG/3ML NEB HHN SCH ×3 (00:35→13:12)
[2018-12-01 00:38] VITALS: BP 151/80
[2018-12-01 04:00] VITALS: BP 150/73
[2018-12-01] MEDS: HYDRALAZINE HCL 100MG TABLET PO SCH ×2 (06:27→13:29)
[2018-12-01] MEDS: LEVOTHYROXINE SODIUM 75MCG TABLET PO SCH (06:28)
[2018-12-01] MEDS: DIPHENHYDRAMINE 50MG/ML VIAL IV PRN ×2 (06:31→10:29)
[2018-12-01 07:12] LABS: BASOPHILS % 0.3 % (0.0-2.0); EOSINOPHILS % 2.1 % (0.0-5.0); HEMATOCRIT. 28.6 % (36.0-48.0); HEMOGLOBIN. 9.4 g/dL (12.0-16.0); LYMPHOCYTES % 11.8 % (20.0-50.0); MEAN CORPUSCULAR HEMOGLOBIN 30.1 pg (28.0-32.0); MEAN CORPUSCULAR VOLUME 91.9 fL (81.0-99.0); MEAN PLATELET VOLUME 8.5 fl (7.4-10.4); MONOCYTES % 8.6 % (2.0-8.0); NEUTROPHILS % 77.2 % (40.0-76.0); PLATELET 170 x1000/uL (130-400); RED BLOOD CELL COUNT 3.11 mill/uL (4.2-5.4); RED CELL DISTRIBUTION WIDTH 17.9 % (11.6-14.6)
[2018-12-01] MEDS: ASPIRIN 81MG EC TABLET PO SCH (08:07)
[2018-12-01] MEDS: GUAIFENESIN 600MG ER TABLET PO SCH (08:07)
[2018-12-01] MEDS: SEVELAMER CARBONATE 800 MG TABLET PO SCH ×2 (08:07→13:28)
[2018-12-01] MEDS: FOLIC ACID 1MG TABLET PO SCH (08:08)
[2018-12-01] MEDS: MORPHINE SULFATE 4 MG/ML CPJ (NOT FOR IM USE) IV PRN (08:09)
[2018-12-01] MEDS ORDERED: HEPARIN SODIUM 1,000 UNIT/1ML VIAL IV NR (10:00)
[2018-12-01 14:45] VITALS: BP 124/86
== END 2018-12-01 16:15 | DRG 270 ==
LOC: ER 21:18 → 6EST 11-26 03:00 → EDBEDREQ 11-26 03:16 → EDBEDREQSVC 11-26 03:16 → EDBEDREQDT 11-26 03:16 → EDBEDREQTM 11-26 03:16 → ENRESERV 11-26 04:09 → 7WST 11-26 10:19 → 5EST 11-28 21:27 → 6WST 11-30 21:40
PROVIDERS: ADMIT Internal Medicine; ATTEND Internal Medicine
PROC: 5A1D70Z Performance of Urinary Filtration, Intermittent, Less than 6 Hours Per Day (ICD-10-PCS; 2018-11-27)
PROC: 06CY3ZZ Extirpation of Matter from Lower Vein, Percutaneous Approach (ICD-10-PCS; principal; 2018-11-28)
PROC: 04CY3ZZ Extirpation of Matter from Lower Artery, Percutaneous Approach (ICD-10-PCS; 2018-11-28)
PROC: 5A1D70Z Performance of Urinary Filtration, Intermittent, Less than 6 Hours Per Day (ICD-10-PCS; 2018-11-29)
PROC: 5A1D70Z Performance of Urinary Filtration, Intermittent, Less than 6 Hours Per Day (ICD-10-PCS; 2018-12-01)
DX: T82.7XXA Infection and inflammatory reaction due to other cardiac and vascular devices, implants and grafts, initial encounter (principal); A41.9 Sepsis, unspecified organism; G93.41 Metabolic encephalopathy; N18.6 End stage renal disease; J69.0 Pneumonitis due to inhalation of food and vomit; E46 Unspecified protein-calorie malnutrition; E87.1 Hypo-osmolality and hyponatremia; I13.2 Hypertensive heart and chronic kidney disease with heart failure and with stage 5 chronic kidney disease, or end stage renal disease; L76.34 Postprocedural seroma of skin and subcutaneous tissue following other procedure; E11.649 Type 2 diabetes mellitus with hypoglycemia without coma; B19.20 Unspecified viral hepatitis C without hepatic coma; G40.909 Epilepsy, unspecified, not intractable, without status epilepticus; D63.1 Anemia in chronic kidney disease; E11.22 Type 2 diabetes mellitus with diabetic chronic kidney disease; E03.9 Hypothyroidism, unspecified; I25.10 Atherosclerotic heart disease of native coronary artery without angina pectoris; I50.9 Heart failure, unspecified; J45.909 Unspecified asthma, uncomplicated; Z99.2 Dependence on renal dialysis; Z79.899 Other long term (current) drug therapy; Z91.041 Radiographic dye allergy status; Z88.5 Allergy status to narcotic agent; Z88.0 Allergy status to penicillin; Z88.8 Allergy status to other drugs, medicaments and biological substances; Z91.040 Latex allergy status; Z82.49 Family history of ischemic heart disease and other diseases of the circulatory system; Z82.5 Family history of asthma and other chronic lower respiratory diseases; Z83.3 Family history of diabetes mellitus; Y83.8 Other surgical procedures as the cause of abnormal reaction of the patient, or of later complication, without mention of misadventure at the time of the procedure; Y92.89 Other specified places as the place of occurrence of the external cause; Z68.24 Body mass index [BMI] 24.0-24.9, adult
CPT/HCPCS: 36415; 71045; 73700; 78806; 80048; 80061; 82962; 83605; 84145; 84439; 84443; 84484; 85014; 85018; 86850; 86900; 87070; 87075; 87804; 88304; 93005; 94640; 96365; 99285; A9547; C1893; J0360; J1170; J1200; J1642; J1644; J1956; J2270; J2405; J2597; J2704; J2710; J3490; J7620

== ENCOUNTER 2018-12-25 22:30 | Inpatient (IN) | payer MEDICARE, MEDICAID ==
[~2018-12-25] VITALS: Ht 162.6 cm; Wt 66.2 kg
[2018-12-25] MEDS ORDERED: ONDANSETRON HCL 4MG/2ML INJ IV STA (23:07)
[2018-12-25] MEDS ORDERED: MORPHINE SULFATE 4 MG/ML CPJ (NOT FOR IM USE) IV STA (23:07)
[2018-12-25] MEDS ORDERED: LEVETIRACETAM 500MG PREMIX 100 ML IV ONE (23:15)
[2018-12-26] VITALS (7 sets, daily range): BP systolic 134–160; BP diastolic 69–77
[2018-12-26 00:17] LABS: BASOPHILS % 0.9 % (0.0-2.0); CHLORIDE 97 mEq/L (98-107); EOSINOPHILS % 1.6 % (0.0-5.0); HEMATOCRIT. 31.6 % (36.0-48.0); HEMOGLOBIN. 10.2 g/dL (12.0-16.0); LYMPHOCYTES % 14.1 % (20.0-50.0); MEAN CORPUSCULAR HEMOGLOBIN 29.7 pg (28.0-32.0); MEAN PLATELET VOLUME 10.1 fl (7.4-10.4); MONOCYTES % 12.9 % (2.0-8.0); NEUTROPHILS % 70.5 % (40.0-76.0); PLATELET 146 x1000/uL (130-400); RED BLOOD CELL COUNT 3.43 mill/uL (4.2-5.4); RED CELL DISTRIBUTION WIDTH 16.4 % (11.6-14.6)
[2018-12-26] MEDS ORDERED: ACETAMINOPHEN 325MG TABLET PO PRN (02:00)
[2018-12-26] MEDS ORDERED: ONDANSETRON HCL 4MG/2ML INJ IV PRN (02:00)
[2018-12-26] MEDS ORDERED: CLONIDINE 0.1MG TABLET PO PRN (02:00)
[2018-12-26] MEDS: LEVOTHYROXINE SODIUM 75MCG TABLET PO SCH (11:30)
[2018-12-26] MEDS: FOLIC ACID/VITAMIN B COMP W-C TABLET PO SCH (11:30)
[2018-12-26] MEDS: ENOXAPARIN 30MG/0.3ML SYR SUBCUT SCH (12:00)
[2018-12-26] MEDS ORDERED: LIDOCAINE HCL 1% 20ML VIAL (Pyxis) INJ ONE (12:54)
[2018-12-26] MEDS: HYDROCODONE/ACETAMINOPHEN 5/325MG TABLET PO PRN (12:57)
[2018-12-26] MEDS: SEVELAMER CARBONATE 800 MG TABLET PO SCH ×2 (13:19→17:40)
[2018-12-26] MEDS: HYDRALAZINE HCL 25MG TABLET PO SCH ×2 (14:00→22:01)
[2018-12-26] MEDS: LORAZEPAM 2MG/ML CPJ IV PRN (15:12)
[2018-12-26] MEDS: CLONIDINE 0.3MG TABLET PO SCH ×2 (15:13→22:02)
[2018-12-26] MEDS ORDERED: HEPARIN SODIUM 1,000 UNIT/1ML VIAL IV SCH (19:30)
[2018-12-26] MEDS: LEVETIRACETAM 500MG TABLET PO SCH (22:00)
[2018-12-27] VITALS: BP 151/89
[2018-12-27 04:00] VITALS: BP 116/74
[2018-12-27] MEDS: HYDRALAZINE HCL 25MG TABLET PO SCH ×4 (05:37→22:00)
[2018-12-27] MEDS: CLONIDINE 0.3MG TABLET PO SCH ×4 (05:38→22:00)
[2018-12-27] MEDS: LEVOTHYROXINE SODIUM 75MCG TABLET PO SCH (06:14)
[2018-12-27 06:27] LABS: BASOPHILS % 1.1 % (0.0-2.0); HEMATOCRIT. 31.1 % (36.0-48.0); HEMOGLOBIN. 10.4 g/dL (12.0-16.0); LYMPHOCYTES % 13.9 % (20.0-50.0); MEAN CORPUSCULAR HEMOGLOBIN 31.2 pg (28.0-32.0); MEAN PLATELET VOLUME 9.9 fl (7.4-10.4); MONOCYTES % 14.7 % (2.0-8.0); NEUTROPHILS % 67.3 % (40.0-76.0); PLATELET 125 x1000/uL (130-400); RED BLOOD CELL COUNT 3.34 mill/uL (4.2-5.4); RED CELL DISTRIBUTION WIDTH 16.7 % (11.6-14.6)
[2018-12-27] MEDS ORDERED: LIDOCAINE HCL 1% 20ML VIAL (Pyxis) INJ ONE (07:49)
[2018-12-27 08:55] VITALS: BP 163/80
[2018-12-27] MEDS: SEVELAMER CARBONATE 800 MG TABLET PO SCH ×3 (10:01→16:44)
[2018-12-27] MEDS: LEVETIRACETAM 500MG TABLET PO SCH ×2 (10:01→21:49)
[2018-12-27] MEDS: FOLIC ACID/VITAMIN B COMP W-C TABLET PO SCH (10:01)
[2018-12-27] MEDS: HYDROCODONE/ACETAMINOPHEN 5/325MG TABLET PO PRN ×2 (10:03→16:46)
[2018-12-27] MEDS ORDERED: INSULIN REGULAR (HUMULIN R) UD 100 UNITS/ML SYR IV SCH (11:00)
[2018-12-27] MEDS ORDERED: SODIUM BICARBONATE 8.4% 1 MEQ/ML 50ML SYR IV SCH (11:00)
[2018-12-27] MEDS ORDERED: DEXTROSE 50% WATER 50ML SYRINGE IV SCH (11:00)
[2018-12-27 12:00] VITALS: BP 142/65
[2018-12-27] MEDS: ENOXAPARIN 30MG/0.3ML SYR SUBCUT SCH (12:00)
[2018-12-27] MEDS ORDERED: HEPARIN SODIUM 1,000 UNIT/1ML VIAL IV NR (13:15)
[2018-12-27] MEDS: DEXT 5%/0.45% NACL 1000ML 1,000 ML IV SCH (15:05)
[2018-12-27 16:00] VITALS: BP 143/67
[2018-12-27 20:00] VITALS: BP 109/64
[2018-12-27] MEDS: DIPHENHYDRAMINE 50MG CAPSULE PO PRN (21:49)
[2018-12-28] VITALS (7 sets, daily range): BP systolic 106–163; BP diastolic 51–80
[2018-12-28] MEDS: HYDRALAZINE HCL 25MG TABLET PO SCH ×3 (05:46→21:20)
[2018-12-28] MEDS: CLONIDINE 0.3MG TABLET PO SCH ×3 (05:46→21:20)
[2018-12-28 06:12] LABS: HEMATOCRIT. 31.2 % (36.0-48.0); HEMOGLOBIN. 10.1 g/dL (12.0-16.0); MEAN CORPUSCULAR HEMOGLOBIN 30.1 pg (28.0-32.0); MEAN CORPUSCULAR VOLUME 93.1 fL (81.0-99.0); MEAN PLATELET VOLUME 9.7 fl (7.4-10.4); PLATELET 133 x1000/uL (130-400); RED BLOOD CELL COUNT 3.35 mill/uL (4.2-5.4); RED CELL DISTRIBUTION WIDTH 16.6 % (11.6-14.6)
[2018-12-28] MEDS: LEVOTHYROXINE SODIUM 75MCG TABLET PO SCH (06:28)
[2018-12-28 07:38] LABS: ATYPICAL LYMPHOCYTES 1
[2018-12-28 07:39] LABS: PLATELET ESTIMATE NORMAL
[2018-12-28] MEDS: FOLIC ACID/VITAMIN B COMP W-C TABLET PO SCH (08:41)
[2018-12-28] MEDS: LEVETIRACETAM 500MG TABLET PO SCH ×2 (08:41→21:18)
[2018-12-28] MEDS: SEVELAMER CARBONATE 800 MG TABLET PO SCH ×3 (08:41→17:40)
[2018-12-28] MEDS ORDERED: BACITRACIN 15GM TUBE TOP ONE (08:47)
[2018-12-28] MEDS ORDERED: HEPARIN SODIUM 1,000 UNIT/1ML VIAL IV ONE (08:48)
[2018-12-28] MEDS ORDERED: LIDOCAINE HCL 1% 20ML VIAL (Pyxis) INJ ONE ×2 (08:48→12:57)
[2018-12-28] MEDS ORDERED: THROMBIN (BOVINE) 5000 UNITS/VIAL TOP ONE (08:48)
[2018-12-28] MEDS ORDERED: BACITRACIN 50,000 UNITS/VIAL ONE (08:49)
[2018-12-28] MEDS ORDERED: NORMAL SALINE 0.9% 10 ML SYR ONE (08:49)
[2018-12-28] MEDS ORDERED: BUPIVACAINE HCL/PF 0.5% (5MG/ML) 10ML ONE (08:49)
[2018-12-28] MEDS ORDERED: HEPARIN 5000 UNITS/ML VIAL ONE (08:56)
[2018-12-28] MEDS: HYDROCODONE/ACETAMINOPHEN 5/325MG TABLET PO PRN (09:44)
[2018-12-28] MEDS: ENOXAPARIN 30MG/0.3ML SYR SUBCUT SCH (12:00)
[2018-12-28] MEDS ORDERED: PROPOFOL 200MG/20ML VIAL IV ONE (12:57)
[2018-12-28] MEDS ORDERED: HYDROMORPHONE HCL/PF 2MG/ML (OR) ONE (12:57)
[2018-12-28] MEDS ORDERED: HEPARIN 1000 UNITS/ML 10ML ONE (14:52)
[2018-12-28] MEDS ORDERED: METOCLOPRAMIDE HCL 10MG/2ML VIAL IV PRN (15:15)
[2018-12-28] MEDS ORDERED: HYDROMORPHONE HCL/PF 2MG/ML CPJ IV PRN (15:15)
[2018-12-28] MEDS ORDERED: ONDANSETRON HCL 4MG/2ML INJ IV PRN (15:15)
[2018-12-28] MEDS: DIPHENHYDRAMINE 50MG/ML VIAL IV PRN ×2 (15:27→16:13)
[2018-12-28] MEDS: DEXT 5%/0.45% NACL 1000ML 1,000 ML IV SCH (17:33)
[2018-12-28] MEDS: DIPHENHYDRAMINE 50MG CAPSULE PO PRN (17:33)
[2018-12-29] MEDS: HYDROCODONE/ACETAMINOPHEN 5/325MG TABLET PO PRN ×3 (00:43→17:18)
[2018-12-29 04:00] VITALS: BP 93/45
[2018-12-29] MEDS: HYDRALAZINE HCL 25MG TABLET PO SCH ×3 (05:31→22:00)
[2018-12-29] MEDS: CLONIDINE 0.3MG TABLET PO SCH ×3 (05:32→22:00)
[2018-12-29] MEDS: SEVELAMER CARBONATE 800 MG TABLET PO SCH ×3 (07:40→17:17)
[2018-12-29 08:00] VITALS: BP 104/47
[2018-12-29] MEDS: FOLIC ACID/VITAMIN B COMP W-C TABLET PO SCH (08:34)
[2018-12-29] MEDS: LEVETIRACETAM 500MG TABLET PO SCH ×2 (08:34→23:05)
[2018-12-29] MEDS ORDERED: HEPARIN SODIUM 1,000 UNIT/1ML VIAL IV NR (10:15)
[2018-12-29 10:41] LABS: BASOPHILS % 1.3 % (0.0-2.0); EOSINOPHILS % 3.4 % (0.0-5.0); HEMATOCRIT. 27.8 % (36.0-48.0); LYMPHOCYTES % 25.5 % (20.0-50.0); MEAN CORPUSCULAR HEMOGLOBIN 29.9 pg (28.0-32.0); MEAN CORPUSCULAR VOLUME 92.7 fL (81.0-99.0); MEAN PLATELET VOLUME 10.1 fl (7.4-10.4); MONOCYTES % 13.2 % (2.0-8.0); NEUTROPHILS % 56.6 % (40.0-76.0); PLATELET 121 x1000/uL (130-400); RED CELL DISTRIBUTION WIDTH 16.3 % (11.6-14.6)
[2018-12-29 12:00] VITALS: BP 124/69
[2018-12-29] MEDS: MORPHINE SULFATE 2 MG/ML CPJ (NOT FOR IM USE) IV PRN ×2 (12:40→20:58)
[2018-12-29] MEDS: ENOXAPARIN 30MG/0.3ML SYR SUBCUT SCH (12:41)
[2018-12-29 16:00] VITALS: BP 118/52
[2018-12-29 20:00] VITALS: BP 124/56
[2018-12-29] MEDS: DEXT 5%/0.45% NACL 1000ML 1,000 ML IV SCH (23:06)
[2018-12-30] VITALS: BP 116/54
[2018-12-30] MEDS: LORAZEPAM 2MG/ML CPJ IV PRN (00:44)
[2018-12-30] MEDS: DIPHENHYDRAMINE 50MG CAPSULE PO PRN ×2 (00:49→18:03)
[2018-12-30 04:00] VITALS: BP 122/56
[2018-12-30] MEDS: MORPHINE SULFATE 2 MG/ML CPJ (NOT FOR IM USE) IV PRN ×4 (04:29→19:53)
[2018-12-30] MEDS: HYDRALAZINE HCL 25MG TABLET PO SCH ×3 (06:20→21:28)
[2018-12-30] MEDS: LEVOTHYROXINE SODIUM 75MCG TABLET PO SCH ×2 (06:20→09:33)
[2018-12-30] MEDS: SEVELAMER CARBONATE 800 MG TABLET PO SCH ×3 (06:21→17:03)
[2018-12-30] MEDS ORDERED: DESMOPRESSIN ACETATE 20 MCG in SODIUM CHLORIDE 0.9% 50 ML IV NR (06:30)
[2018-12-30 07:20] LABS: BASOPHILS % 0.9 % (0.0-2.0); EOSINOPHILS % 4.8 % (0.0-5.0); HEMATOCRIT. 29.1 % (36.0-48.0); HEMOGLOBIN. 9.5 g/dL (12.0-16.0); LYMPHOCYTES % 32.7 % (20.0-50.0); MEAN CORPUSCULAR HEMOGLOBIN 30.1 pg (28.0-32.0); MEAN CORPUSCULAR VOLUME 92.6 fL (81.0-99.0); MEAN PLATELET VOLUME 9.8 fl (7.4-10.4); NEUTROPHILS % 47.6 % (40.0-76.0); PLATELET 118 x1000/uL (130-400); RED BLOOD CELL COUNT 3.14 mill/uL (4.2-5.4); RED CELL DISTRIBUTION WIDTH 16.5 % (11.6-14.6)
[2018-12-30 08:00] VITALS: BP 124/61
[2018-12-30] MEDS: LEVETIRACETAM 500MG TABLET PO SCH ×2 (09:33→21:28)
[2018-12-30] MEDS: FOLIC ACID/VITAMIN B COMP W-C TABLET PO SCH (09:33)
[2018-12-30] MEDS: CLONIDINE 0.3MG TABLET PO SCH ×3 (09:43→21:29)
[2018-12-30] MEDS: DEXT 5%/0.45% NACL 1000ML 1,000 ML IV SCH (09:43)
[2018-12-30 12:00] VITALS: BP 109/46
[2018-12-30] MEDS: ENOXAPARIN 30MG/0.3ML SYR SUBCUT SCH (12:00)
[2018-12-30 16:00] VITALS: BP 99/52
[2018-12-30 19:40] LABS: HEMATOCRIT 28.1 % (36.0-48.0); HEMOGLOBIN 8.9 g/dL (12.0-16.0)
[2018-12-30 20:00] VITALS: BP 118/55
[2018-12-31] VITALS: BP 96/53
[2018-12-31] MEDS: MORPHINE SULFATE 2 MG/ML CPJ (NOT FOR IM USE) IV PRN ×4 (01:16→15:06)
[2018-12-31] MEDS: DIPHENHYDRAMINE 50MG CAPSULE PO PRN (01:16)
[2018-12-31 04:00] VITALS: BP 121/60
[2018-12-31] MEDS: HYDRALAZINE HCL 25MG TABLET PO SCH ×2 (04:49→14:00)
[2018-12-31] MEDS: CLONIDINE 0.3MG TABLET PO SCH ×2 (04:50→14:00)
[2018-12-31] MEDS: SEVELAMER CARBONATE 800 MG TABLET PO SCH ×3 (06:10→18:48)
[2018-12-31] MEDS: LEVOTHYROXINE SODIUM 75MCG TABLET PO SCH (06:10)
[2018-12-31 08:00] VITALS: BP 102/53
[2018-12-31] MEDS: LEVETIRACETAM 500MG TABLET PO SCH (08:56)
[2018-12-31] MEDS: FOLIC ACID/VITAMIN B COMP W-C TABLET PO SCH (08:56)
[2018-12-31] MEDS: DEXT 5%/0.45% NACL 1000ML 1,000 ML IV SCH (09:55)
[2018-12-31 12:00] VITALS: BP 99/50
[2018-12-31 15:06] VITALS: BP 106/56
[2018-12-31 16:38] LABS: HEMATOCRIT 27.4 % (36.0-48.0); HEMOGLOBIN 8.9 g/dL (12.0-16.0)
[2019-01-11 13:11] LABS: BARBITURATE SCREEN Negative ug/mL (Cutoff:0.1); BENZODIAZEPINE SCREEN Negative ng/mL (Cutoff:20); OPIATES SCREEN ++POSITIVE++ ng/mL (Cutoff:5); PHENCYCLIDINE SCREEN Negative ng/mL (Cutoff:8)
== END 2018-12-31 19:45 | DRG 252 ==
LOC: ER 22:30 → EDBEDREQ 12-26 02:45 → EDBEDREQTM 12-26 02:45 → EDBEDREQDT 12-26 02:45 → ENRESERV 12-26 07:01 → 8WST 12-26 10:48
PROVIDERS: ADMIT Internal Medicine Nephrology; ATTEND Internal Medicine Nephrology
PROC: 5A1D70Z Performance of Urinary Filtration, Intermittent, Less than 6 Hours Per Day (ICD-10-PCS; 2018-12-26)
PROC: 4A00X4Z Measurement of Central Nervous Electrical Activity, External Approach (ICD-10-PCS; 2018-12-26)
PROC: 02HV33Z Insertion of Infusion Device into Superior Vena Cava, Percutaneous Approach (ICD-10-PCS; principal; 2018-12-27)
PROC: B5181ZA Fluoroscopy of Superior Vena Cava using Low Osmolar Contrast, Guidance (ICD-10-PCS; 2018-12-27)
PROC: B548ZZA Ultrasonography of Superior Vena Cava, Guidance (ICD-10-PCS; 2018-12-27)
PROC: 5A1D70Z Performance of Urinary Filtration, Intermittent, Less than 6 Hours Per Day (ICD-10-PCS; 2018-12-27)
PROC: 041L0ZS Bypass Left Femoral Artery to Lower Extremity Vein, Open Approach (ICD-10-PCS; 2018-12-28)
PROC: 5A1D70Z Performance of Urinary Filtration, Intermittent, Less than 6 Hours Per Day (ICD-10-PCS; 2018-12-28)
DX: I13.2 Hypertensive heart and chronic kidney disease with heart failure and with stage 5 chronic kidney disease, or end stage renal disease (principal); N18.6 End stage renal disease; G40.409 Other generalized epilepsy and epileptic syndromes, not intractable, without status epilepticus; Z99.2 Dependence on renal dialysis; I50.9 Heart failure, unspecified; E87.5 Hyperkalemia; D64.9 Anemia, unspecified; E03.9 Hypothyroidism, unspecified; K74.60 Unspecified cirrhosis of liver; B19.20 Unspecified viral hepatitis C without hepatic coma; Z79.899 Other long term (current) drug therapy; Z82.49 Family history of ischemic heart disease and other diseases of the circulatory system; Z82.5 Family history of asthma and other chronic lower respiratory diseases; Z91.041 Radiographic dye allergy status; Z91.14 Patient's other noncompliance with medication regimen; Z83.3 Family history of diabetes mellitus; Z88.0 Allergy status to penicillin; Z91.040 Latex allergy status; Z88.5 Allergy status to narcotic agent; Z91.09 Other allergy status, other than to drugs and biological substances
CPT/HCPCS: 36415; 70551; 71045; 77001; 80048; 80307; 80320; 83605; 84132; 84484; 85014; 85018; 86850; 86900; 93005; 97162; 99285; C1725; C1768; C1769; C1887; J1170; J1200; J1644; J1650; J1815; J1953; J2060; J2270; J2405; J2597; J2704; J3490; J7040; Q0163; G0480

== ENCOUNTER 2019-02-27 16:11 | Inpatient (IN) | payer MEDICARE, MEDICAID ==
[~2019-02-27] VITALS: Ht 162.6 cm; Wt 56.2 kg
[2019-02-27 20:41] LABS: EOSINOPHILS % 2.9 % (0.0-5.0); HEMATOCRIT. 38.5 % (36.0-48.0); HEMOGLOBIN. 12.3 g/dL (12.0-16.0); LYMPHOCYTES % 16.4 % (20.0-50.0); MEAN CORPUSCULAR HEMOGLOBIN 28.9 pg (28.0-32.0); MEAN CORPUSCULAR VOLUME 90.3 fL (81.0-99.0); MEAN PLATELET VOLUME 8.2 fl (7.4-10.4); NEUTROPHILS % 71.7 % (40.0-76.0); PLATELET 116 x1000/uL (130-400); RED BLOOD CELL COUNT 4.26 mill/uL (4.2-5.4); RED CELL DISTRIBUTION WIDTH 16.5 % (11.6-14.6)
[2019-02-27 20:43] LABS: CHLORIDE 103 mEq/L (98-107)
[2019-02-27 20:45] LABS: INR 1.1; PROTHROMBIN TIME 11.1 sec (9.6-11.0)
[2019-02-28] VITALS (9 sets, daily range): BP systolic 107–121; BP diastolic 54–77
[2019-02-28] MEDS: SEVELAMER CARBONATE 800 MG TABLET PO SCH ×3 (09:00→17:30)
[2019-02-28] MEDS: FOLIC ACID/VITAMIN B COMP W-C TABLET PO SCH (09:00)
[2019-02-28] MEDS ORDERED: DOCUSATE SODIUM 100MG CAPSULE PO PRN (09:00)
[2019-02-28] MEDS ORDERED: ONDANSETRON HCL 4MG/2ML INJ IV PRN (09:00)
[2019-02-28] MEDS: LEVOTHYROXINE SODIUM 88MCG TABLET PO SCH (09:00)
[2019-02-28] MEDS: HYDROCODONE/APAP 7.5/325MG 1 TAB TABLET PO PRN ×3 (11:55→20:33)
[2019-02-28] MEDS: HYDRALAZINE HCL 50MG TABLET PO SCH (14:00)
[2019-02-28] MEDS: CLONIDINE 0.3MG TABLET PO SCH ×2 (14:00→22:00)
[2019-02-28 17:01] LABS: HEMATOCRIT 33.1 % (36.0-48.0); HEMOGLOBIN 10.8 g/dL (12.0-16.0)
[2019-02-28] MEDS: LEVETIRACETAM 500MG TABLET PO SCH (20:31)
[2019-02-28 23:06] LABS: HEMATOCRIT 33.5 % (36.0-48.0); HEMOGLOBIN 10.8 g/dL (12.0-16.0)
[2019-03-01] VITALS (7 sets, daily range): BP systolic 93–122; BP diastolic 42–70
[2019-03-01] MEDS: CLONIDINE 0.1MG TABLET PO PRN ×2 (00:14→00:15)
[2019-03-01] MEDS: HYDRALAZINE HCL 50MG TABLET PO SCH ×2 (00:14→06:27)
[2019-03-01 06:05] LABS: BASOPHILS % 0.9 % (0.0-2.0); EOSINOPHILS % 2.2 % (0.0-5.0); HEMATOCRIT. 32.7 % (36.0-48.0); HEMOGLOBIN. 10.8 g/dL (12.0-16.0); LYMPHOCYTES % 19.5 % (20.0-50.0); MEAN CORPUSCULAR HEMOGLOBIN 29.4 pg (28.0-32.0); MEAN CORPUSCULAR VOLUME 89.5 fL (81.0-99.0); MEAN PLATELET VOLUME 8.4 fl (7.4-10.4); NEUTROPHILS % 65.4 % (40.0-76.0); PLATELET 97 x1000/uL (130-400); RED BLOOD CELL COUNT 3.65 mill/uL (4.2-5.4); RED CELL DISTRIBUTION WIDTH 16.5 % (11.6-14.6)
[2019-03-01 06:13] LABS: CHLORIDE 107 mEq/L (98-107)
[2019-03-01 06:23] LABS: LDL CHOLESTEROL 77 mg/dL (5-100)
[2019-03-01 06:27] LABS: HDL CHOLESTEROL 94 mg/dL (40-59)
[2019-03-01] MEDS: CLONIDINE 0.3MG TABLET PO SCH (06:27)
[2019-03-01] MEDS: LEVOTHYROXINE SODIUM 88MCG TABLET PO SCH (06:27)
[2019-03-01] MEDS: LEVETIRACETAM 500MG TABLET PO SCH (08:07)
[2019-03-01] MEDS: SEVELAMER CARBONATE 800 MG TABLET PO SCH ×2 (08:07→12:58)
[2019-03-01] MEDS: FOLIC ACID/VITAMIN B COMP W-C TABLET PO SCH (08:07)
== END 2019-03-01 14:16 | DRG 314 ==
LOC: ER 16:25 → 3WST 02-28 08:35 → ENRESERV 02-28 10:33
PROVIDERS: ADMIT Internal Medicine Nephrology; ATTEND Internal Medicine Nephrology
PROC: 5A1D70Z Performance of Urinary Filtration, Intermittent, Less than 6 Hours Per Day (ICD-10-PCS; principal; 2019-02-28)
DX: T82.838A Hemorrhage due to vascular prosthetic devices, implants and grafts, initial encounter (principal); N18.6 End stage renal disease; I13.2 Hypertensive heart and chronic kidney disease with heart failure and with stage 5 chronic kidney disease, or end stage renal disease; Q61.3 Polycystic kidney, unspecified; S30.1XXA Contusion of abdominal wall, initial encounter; E03.9 Hypothyroidism, unspecified; B19.20 Unspecified viral hepatitis C without hepatic coma; G40.909 Epilepsy, unspecified, not intractable, without status epilepticus; I50.9 Heart failure, unspecified; Y84.1 Kidney dialysis as the cause of abnormal reaction of the patient, or of later complication, without mention of misadventure at the time of the procedure; Z79.890 Hormone replacement therapy; Z79.899 Other long term (current) drug therapy; Z82.49 Family history of ischemic heart disease and other diseases of the circulatory system; Z82.5 Family history of asthma and other chronic lower respiratory diseases; Z99.2 Dependence on renal dialysis; Z83.3 Family history of diabetes mellitus; Z88.0 Allergy status to penicillin; Z88.8 Allergy status to other drugs, medicaments and biological substances; Z91.041 Radiographic dye allergy status; Z91.040 Latex allergy status; Y92.89 Other specified places as the place of occurrence of the external cause
CPT/HCPCS: 36415; 74176; 80061; 84484; 85014; 85018; 86850; 86900; 93005; 93970; 99285

== ENCOUNTER 2019-03-22 08:45 | Inpatient (IN) | payer MEDICARE, MEDICAID ==
[~2019-03-22] VITALS: Ht 167.6 cm; Wt 63.5 kg
[2019-03-22] MEDS ORDERED: KETOROLAC 30MG/ML VIAL IV ONE (09:15)
[2019-03-22 09:56] LABS: BASOPHILS % 1.3 % (0.0-2.0); EOSINOPHILS % 2.6 % (0.0-5.0); HEMATOCRIT. 30.9 % (36.0-48.0); HEMOGLOBIN. 10.3 g/dL (12.0-16.0); LYMPHOCYTES % 27.2 % (20.0-50.0); MEAN CORPUSCULAR HEMOGLOBIN 29.3 pg (28.0-32.0); MEAN CORPUSCULAR VOLUME 88.2 fL (81.0-99.0); MEAN PLATELET VOLUME 8.9 fl (7.4-10.4); MONOCYTES % 14.3 % (2.0-8.0); NEUTROPHILS % 54.6 % (40.0-76.0); PLATELET 83 x1000/uL (130-400); RED CELL DISTRIBUTION WIDTH 17.3 % (11.6-14.6)
[2019-03-22 10:00] LABS: CHLORIDE 96 mEq/L (98-107)
[2019-03-22] MEDS ORDERED: ENOXAPARIN 40MG/0.4ML SYR SUBCUT SCH (10:45)
[2019-03-22] MEDS ORDERED: DOCUSATE SODIUM 100MG CAPSULE PO PRN (10:45)
[2019-03-22] MEDS ORDERED: ONDANSETRON HCL 4MG/2ML INJ IV PRN (10:45)
[2019-03-22] MEDS ORDERED: ACETAMINOPHEN 325MG TABLET PO PRN (10:45)
[2019-03-22] MEDS: SEVELAMER CARBONATE 800 MG TABLET PO SCH (19:08)
[2019-03-22] MEDS: HYDRALAZINE HCL 50MG TABLET PO SCH (21:43)
[2019-03-22] MEDS: CLONIDINE 0.3MG TABLET PO SCH (21:43)
[2019-03-22 22:57] VITALS: BP 129/69
[2019-03-23] VITALS: BP 116/69
[2019-03-23 04:00] VITALS: BP 139/67
[2019-03-23] MEDS: HYDRALAZINE HCL 50MG TABLET PO SCH ×2 (06:06→06:08)
[2019-03-23] MEDS: CLONIDINE 0.1MG TABLET PO PRN ×2 (06:06→06:11)
[2019-03-23] MEDS: CLONIDINE 0.3MG TABLET PO SCH ×2 (06:13→14:00)
[2019-03-23 06:36] LABS: CHLORIDE 107 mEq/L (98-107)
[2019-03-23 06:37] LABS: BASOPHILS % 0.8 % (0.0-2.0); EOSINOPHILS % 2.1 % (0.0-5.0); HEMATOCRIT. 32.6 % (36.0-48.0); HEMOGLOBIN. 10.8 g/dL (12.0-16.0); LYMPHOCYTES % 19.1 % (20.0-50.0); MEAN CORPUSCULAR HEMOGLOBIN 29.8 pg (28.0-32.0); MEAN CORPUSCULAR VOLUME 89.7 fL (81.0-99.0); PLATELET 84 x1000/uL (130-400); RED BLOOD CELL COUNT 3.63 mill/uL (4.2-5.4); RED CELL DISTRIBUTION WIDTH 17.5 % (11.6-14.6)
[2019-03-23 06:48] LABS: HDL CHOLESTEROL 110 mg/dL (40-59)
[2019-03-23 06:49] LABS: LDL CHOLESTEROL 63 mg/dL (5-100)
[2019-03-23] MEDS ORDERED: LEVOTHYROXINE SODIUM 100MCG TABLET PO SCH (07:40)
[2019-03-23 08:00] VITALS: BP 118/55
[2019-03-23] MEDS ORDERED: FOLIC ACID/VITAMIN B COMP W-C TABLET PO SCH (09:00)
[2019-03-23] MEDS: SEVELAMER CARBONATE 800 MG TABLET PO SCH ×2 (09:08→13:10)
[2019-03-23 12:00] VITALS: BP 115/52
[2019-03-23 16:00] VITALS: BP 108/46
== END 2019-03-23 19:25 | DRG 313 ==
LOC: ER 08:45 → ENRESERV 18:30 → 7WST 20:08
PROVIDERS: ADMIT Internal Medicine Nephrology; ATTEND Internal Medicine Nephrology
DX: R07.89 Other chest pain (principal); N18.6 End stage renal disease; I13.2 Hypertensive heart and chronic kidney disease with heart failure and with stage 5 chronic kidney disease, or end stage renal disease; B19.20 Unspecified viral hepatitis C without hepatic coma; D25.9 Leiomyoma of uterus, unspecified; D64.9 Anemia, unspecified; D69.6 Thrombocytopenia, unspecified; E03.9 Hypothyroidism, unspecified; E11.22 Type 2 diabetes mellitus with diabetic chronic kidney disease; E87.5 Hyperkalemia; G40.909 Epilepsy, unspecified, not intractable, without status epilepticus; I25.10 Atherosclerotic heart disease of native coronary artery without angina pectoris; I50.9 Heart failure, unspecified; Z79.899 Other long term (current) drug therapy; Z82.49 Family history of ischemic heart disease and other diseases of the circulatory system; Z82.5 Family history of asthma and other chronic lower respiratory diseases; Z83.3 Family history of diabetes mellitus; Z86.79 Personal history of other diseases of the circulatory system; Z99.2 Dependence on renal dialysis; Z91.041 Radiographic dye allergy status; Z88.0 Allergy status to penicillin; Z88.5 Allergy status to narcotic agent; Z88.8 Allergy status to other drugs, medicaments and biological substances; Z91.040 Latex allergy status; Z91.013 Allergy to seafood
CPT/HCPCS: 36415; 71045; 74176; 80053; 80061; 83735; 84443; 84484; 85025; 93005; 93970; 99285

== ENCOUNTER 2019-04-24 23:12 | Emergency (ER) | payer MEDICARE, MEDICAID ==
[~2019-04-24] VITALS: Ht 162.6 cm; Wt 55.0 kg
[2019-04-25 03:36] LABS: BASOPHILS % 1.2 % (0.0-2.0); EOSINOPHILS % 0.5 % (0.0-5.0); HEMATOCRIT. 35.2 % (36.0-48.0); HEMOGLOBIN. 11.5 g/dL (12.0-16.0); LYMPHOCYTES % 18.4 % (20.0-50.0); MEAN PLATELET VOLUME 8.8 fl (7.4-10.4); MONOCYTES % 12.5 % (2.0-8.0); NEUTROPHILS % 67.4 % (40.0-76.0); PLATELET 112 x1000/uL (130-400); RED BLOOD CELL COUNT 3.96 mill/uL (4.2-5.4); RED CELL DISTRIBUTION WIDTH 19.2 % (11.6-14.6)
[2019-04-25 03:39] LABS: CHLORIDE 103 mEq/L (98-107)
[2019-04-25] MEDS ORDERED: VANCOMYCIN 1 G PREMIX 200 ML IV ONE (05:15)
[2019-04-25 10:37] VITALS: BP 139/68
[2019-04-27] MEDS ORDERED: KEPP500 MT (15:05)
== END 2019-04-25 10:40 | disposition home or self-care (01) ==
LOC: ER 23:12
DX: R50.9 Fever, unspecified (principal); I12.0 Hypertensive chronic kidney disease with stage 5 chronic kidney disease or end stage renal disease; N18.6 End stage renal disease; Z99.2 Dependence on renal dialysis
CPT/HCPCS: 36415; 71045; 80053; 83605; 85025; 87040; 87804; 96365; 99285; J3370

== ENCOUNTER 2019-04-26 21:39 | Inpatient (IN) | payer MEDICARE, MEDICAID ==
[~2019-04-26] VITALS: Ht 157.5 cm; Wt 62.1 kg
[2019-04-27 00:25] LABS: HEMATOCRIT. 40.2 % (36.0-48.0); HEMOGLOBIN. 12.8 g/dL (12.0-16.0); MEAN CORPUSCULAR HEMOGLOBIN 28.6 pg (28.0-32.0); MEAN CORPUSCULAR VOLUME 89.6 fL (81.0-99.0); PLATELET 120 x1000/uL (130-400); RED BLOOD CELL COUNT 4.48 mill/uL (4.2-5.4); RED CELL DISTRIBUTION WIDTH 19.5 % (11.6-14.6)
[2019-04-27 00:40] LABS: CHLORIDE 102 mEq/L (98-107)
[2019-04-27 05:38] LABS: PLATELET ESTIMATE SLIGHTLY DECREASED
[2019-04-27] MEDS ORDERED: GUAIFENESIN 200MG/10ML SUGAR FREE UDC PO PRN (08:00)
[2019-04-27] MEDS ORDERED: ONDANSETRON HCL 4MG/2ML INJ IV PRN (08:00)
[2019-04-27] MEDS ORDERED: IPRATROPIUM/ALBUTEROL 0.5-3(2.5)MG/3ML NEB HHN PRN (08:00)
[2019-04-27] MEDS ORDERED: DOCUSATE SODIUM 100MG CAPSULE PO PRN (08:00)
[2019-04-27] MEDS ORDERED: MAGNESIUM/ALUMINUM HYDROXIDE/SIMETHICONE 30ML UDC PO PRN (08:00)
[2019-04-27] MEDS ORDERED: ENOXAPARIN 40MG/0.4ML SYR SUBCUT SCH (08:00)
[2019-04-27] MEDS ORDERED: HYDRALAZINE 20MG/ML VIAL IV PRN (08:00)
[2019-04-27] MEDS ORDERED: LORAZEPAM 2MG/ML CPJ IV PRN (08:00)
[2019-04-27] MEDS ORDERED: ACETAMINOPHEN 325MG TABLET PO PRN (08:00)
[2019-04-27 08:47] LABS: INR 1.1; PARTIAL THROMBOPLASTIN TIME 23.2 sec (23.4-31.0); PROTHROMBIN TIME 11.4 sec (9.6-11.0)
[2019-04-27] MEDS ORDERED: SODIUM BICARBONATE 4% (2.4MEQ) 5ML VIAL IV ONE (09:44)
[2019-04-27] MEDS ORDERED: LIDOCAINE HCL 1% 20ML VIAL (Pyxis) INJ ONE (09:44)
[2019-04-27] MEDS ORDERED: LEVOFLOXACIN 500MG PREMIX 100 ML IV SCH (11:15)
[2019-04-27] MEDS ORDERED: ENOXAPARIN 30MG/0.3ML SYR SUBCUT SCH (12:00)
[2019-04-27 14:20] VITALS: BP 145/84
[2019-04-27] MEDS ORDERED: HYDR-3282 PO (15:03)
[2019-04-27] MEDS ORDERED: FOLI0.8T23 PO (15:05)
[2019-04-27] MEDS ORDERED: KEPP500 PO (15:05)
[2019-04-27 16:00] VITALS: BP 140/71
[2019-04-27] MEDS: HYDROCODONE/ACETAMINOPHEN 10/325MG TABLET PO PRN (16:52)
[2019-04-27] MEDS ORDERED: VANCOMYCIN 1250MG in DEXTROSE 5% WATER 250ML IV NR (18:00)
[2019-04-27 18:06] LABS: CREATINE KINASE 21 IU/L (26-192)
[2019-04-27 18:10] LABS: CREATINE KINASE MB FRACTION < 1.0 ng/mL (0.5-3.6)
[2019-04-27] MEDS ORDERED: ENOXAPARIN 30MG/0.3ML SYR SUBCUT NR (18:30)
[2019-04-27 20:00] VITALS: BP 138/82
[2019-04-27] MEDS: SODIUM CHLORIDE 0.9% INJ 3ML FLUSH IVF SCH (21:36)
[2019-04-27] MEDS: LEVETIRACETAM 500MG TABLET PO SCH (21:37)
[2019-04-27] MEDS: DIPHENHYDRAMINE 50MG/ML VIAL IV PRN (21:42)
[2019-04-28] VITALS: BP 153/83
[2019-04-28 00:34] LABS: CREATINE KINASE 20 IU/L (26-192)
[2019-04-28 00:35] LABS: CREATINE KINASE MB FRACTION < 1.0 ng/mL (0.5-3.6)
[2019-04-28] MEDS: DIPHENHYDRAMINE 50MG/ML VIAL IV PRN ×3 (02:30→21:24)
[2019-04-28 04:00] VITALS: BP 161/82
[2019-04-28] MEDS: CLONIDINE 0.1MG TABLET PO PRN (05:03)
[2019-04-28] MEDS: SODIUM CHLORIDE 0.9% INJ 3ML FLUSH IVF SCH ×3 (05:04→21:24)
[2019-04-28 07:56] LABS: BASOPHILS % 0.7 % (0.0-2.0); EOSINOPHILS % 3.4 % (0.0-5.0); HEMATOCRIT. 34.3 % (36.0-48.0); HEMOGLOBIN. 11.2 g/dL (12.0-16.0); LYMPHOCYTES % 39.7 % (20.0-50.0); MEAN CORPUSCULAR HEMOGLOBIN 29.2 pg (28.0-32.0); MEAN CORPUSCULAR VOLUME 89.4 fL (81.0-99.0); MEAN PLATELET VOLUME 9.2 fl (7.4-10.4); MONOCYTES % 14.3 % (2.0-8.0); NEUTROPHILS % 41.9 % (40.0-76.0); PLATELET 122 x1000/uL (130-400); RED BLOOD CELL COUNT 3.83 mill/uL (4.2-5.4); RED CELL DISTRIBUTION WIDTH 19.4 % (11.6-14.6)
[2019-04-28 08:00] VITALS: BP 118/62
[2019-04-28 08:06] LABS: CHLORIDE 101 mEq/L (98-107)
[2019-04-28] MEDS: LEVETIRACETAM 500MG TABLET PO SCH ×2 (08:59→20:35)
[2019-04-28 12:00] VITALS: BP 126/67
[2019-04-28 16:00] VITALS: BP 152/84
[2019-04-28] MEDS: ENOXAPARIN 60MG/0.6ML SYR SUBCUT SCH (18:42)
[2019-04-28 20:00] VITALS: BP 109/52
[2019-04-29] VITALS: BP 121/57
[2019-04-29 04:00] VITALS: BP 134/72
[2019-04-29] MEDS: SODIUM CHLORIDE 0.9% INJ 3ML FLUSH IVF SCH ×3 (05:43→22:00)
[2019-04-29 06:54] LABS: BASOPHILS % 1.2 % (0.0-2.0); EOSINOPHILS % 3.8 % (0.0-5.0); HEMATOCRIT. 36.2 % (36.0-48.0); LYMPHOCYTES % 36.3 % (20.0-50.0); MEAN CORPUSCULAR HEMOGLOBIN 29.6 pg (28.0-32.0); MEAN CORPUSCULAR VOLUME 89.4 fL (81.0-99.0); MEAN PLATELET VOLUME 8.7 fl (7.4-10.4); MONOCYTES % 12.3 % (2.0-8.0); NEUTROPHILS % 46.4 % (40.0-76.0); PLATELET 114 x1000/uL (130-400); RED BLOOD CELL COUNT 4.04 mill/uL (4.2-5.4); RED CELL DISTRIBUTION WIDTH 19.5 % (11.6-14.6)
[2019-04-29 08:00] VITALS: BP 131/68
[2019-04-29] MEDS: LEVETIRACETAM 500MG TABLET PO SCH ×2 (08:45→20:24)
[2019-04-29] MEDS ORDERED: LEVOFLOXACIN 250MG PREMIX 50 ML IV SCH (09:00)
[2019-04-29] MEDS ORDERED: LEVOFLOXACIN 500MG PREMIX 100 ML IV SCH (11:00)
[2019-04-29 12:00] VITALS: BP 136/76
[2019-04-29] MEDS: DIPHENHYDRAMINE 50MG/ML VIAL IV PRN ×3 (13:00→22:00)
[2019-04-29 16:00] VITALS: BP 145/77
[2019-04-29] MEDS: ENOXAPARIN 60MG/0.6ML SYR SUBCUT SCH (17:29)
[2019-04-29 20:00] VITALS: BP 130/68
[2019-04-30] VITALS: BP 138/71
[2019-04-30 04:00] VITALS: BP 134/56
[2019-04-30] MEDS: SODIUM CHLORIDE 0.9% INJ 3ML FLUSH IVF SCH ×3 (06:07→20:45)
[2019-04-30 07:41] LABS: BASOPHILS % 1.4 % (0.0-2.0); EOSINOPHILS % 3.7 % (0.0-5.0); HEMATOCRIT. 35.3 % (36.0-48.0); HEMOGLOBIN. 11.7 g/dL (12.0-16.0); LYMPHOCYTES % 37.5 % (20.0-50.0); MEAN CORPUSCULAR HEMOGLOBIN 29.2 pg (28.0-32.0); MEAN CORPUSCULAR VOLUME 88.1 fL (81.0-99.0); MEAN PLATELET VOLUME 8.9 fl (7.4-10.4); MONOCYTES % 11.6 % (2.0-8.0); NEUTROPHILS % 45.8 % (40.0-76.0); PLATELET 119 x1000/uL (130-400); RED BLOOD CELL COUNT 4.01 mill/uL (4.2-5.4); RED CELL DISTRIBUTION WIDTH 19.5 % (11.6-14.6)
[2019-04-30 07:57] VITALS: BP 138/67
[2019-04-30] MEDS: LEVETIRACETAM 500MG TABLET PO SCH ×2 (09:17→20:45)
[2019-04-30 11:46] VITALS: BP 139/72
[2019-04-30] MEDS ORDERED: VANCOMYCIN 750 MG PREMIX 150 ML IV SCH (14:00)
[2019-04-30 16:00] VITALS: BP 136/78
[2019-04-30] MEDS: ENOXAPARIN 60MG/0.6ML SYR SUBCUT SCH (16:10)
[2019-04-30] MEDS: DIPHENHYDRAMINE 50MG/ML VIAL IV PRN ×2 (17:11→21:01)
[2019-04-30 20:00] VITALS: BP 148/79
[2019-05-01] VITALS (7 sets, daily range): BP systolic 138–176; BP diastolic 62–86
[2019-05-01] MEDS: SODIUM CHLORIDE 0.9% INJ 3ML FLUSH IVF SCH ×3 (05:12→21:40)
[2019-05-01 07:41] LABS: BASOPHILS % 1.5 % (0.0-2.0); EOSINOPHILS % 3.1 % (0.0-5.0); HEMATOCRIT. 35.9 % (36.0-48.0); HEMOGLOBIN. 11.9 g/dL (12.0-16.0); LYMPHOCYTES % 35.7 % (20.0-50.0); MEAN CORPUSCULAR HEMOGLOBIN 29.4 pg (28.0-32.0); MEAN CORPUSCULAR VOLUME 88.7 fL (81.0-99.0); MEAN PLATELET VOLUME 8.8 fl (7.4-10.4); MONOCYTES % 10.6 % (2.0-8.0); NEUTROPHILS % 49.1 % (40.0-76.0); PLATELET 127 x1000/uL (130-400); RED BLOOD CELL COUNT 4.05 mill/uL (4.2-5.4); RED CELL DISTRIBUTION WIDTH 19.4 % (11.6-14.6)
[2019-05-01] MEDS ORDERED: LIDOCAINE HCL 1% 20ML VIAL (Pyxis) INJ ONE (08:01)
[2019-05-01] MEDS ORDERED: SODIUM BICARBONATE 4% (2.4MEQ) 5ML VIAL IV ONE (08:01)
[2019-05-01 08:03] LABS: CHLORIDE 94 mEq/L (98-107)
[2019-05-01] MEDS: LEVETIRACETAM 500MG TABLET PO SCH ×2 (08:13→20:05)
[2019-05-01] MEDS: MORPHINE SULFATE 2 MG/ML CPJ (NOT FOR IM USE) IV PRN ×2 (10:44→18:40)
[2019-05-01] MEDS: HYDROCODONE/ACETAMINOPHEN 10/325MG TABLET PO PRN ×2 (11:49→20:06)
[2019-05-01] MEDS: DIPHENHYDRAMINE 50MG/ML VIAL IV PRN ×2 (15:28→21:39)
[2019-05-01] MEDS: ENOXAPARIN 60MG/0.6ML SYR SUBCUT SCH (16:25)
[2019-05-01] MEDS ORDERED: VANCOMYCIN 500 MG PREMIX 100 ML IV SCH (18:00)
[2019-05-01] MEDS: CLONIDINE 0.1MG TABLET PO PRN (23:56)
[2019-05-02] VITALS: BP_SYST 176; BP_SYST 186; BP_DIAS 72; BP_DIAS 82
[2019-05-02] MEDS: MORPHINE SULFATE 2 MG/ML CPJ (NOT FOR IM USE) IV PRN (02:30)
[2019-05-02] MEDS: SODIUM CHLORIDE 0.9% INJ 3ML FLUSH IVF SCH ×2 (06:33→13:26)
[2019-05-02 07:13] LABS: BASOPHILS % 0.7 % (0.0-2.0); EOSINOPHILS % 2.6 % (0.0-5.0); HEMATOCRIT. 32.2 % (36.0-48.0); HEMOGLOBIN. 10.6 g/dL (12.0-16.0); MEAN CORPUSCULAR HEMOGLOBIN 29.1 pg (28.0-32.0); MEAN CORPUSCULAR VOLUME 88.1 fL (81.0-99.0); MEAN PLATELET VOLUME 8.9 fl (7.4-10.4); NEUTROPHILS % 59.7 % (40.0-76.0); PLATELET 103 x1000/uL (130-400); RED BLOOD CELL COUNT 3.65 mill/uL (4.2-5.4); RED CELL DISTRIBUTION WIDTH 18.7 % (11.6-14.6)
[2019-05-02 08:00] VITALS: BP 132/63
[2019-05-02] MEDS: LEVETIRACETAM 500MG TABLET PO SCH (08:25)
[2019-05-02] MEDS: HYDROCODONE/ACETAMINOPHEN 10/325MG TABLET PO PRN ×2 (08:43→13:56)
[2019-05-02 12:00] VITALS: BP 132/76
[2019-05-02] MEDS: ENOXAPARIN 60MG/0.6ML SYR SUBCUT SCH (15:13)
[2019-05-02 16:00] VITALS: BP 132/76
== END 2019-05-02 21:32 | DRG 252 ==
LOC: ER 21:39 → EDBEDREQSVC 04-27 02:44 → EDBEDREQTM 04-27 02:44 → EDBEDREQ 04-27 02:44 → 6WST 04-27 05:55 → CANRESERV 04-27 08:11 → ENRESERV 04-27 08:11 → CANBEDREQ 04-27 08:48 → EDBEDREQ 04-27 08:49 → ENRESERV 04-27 13:26
PROVIDERS: ADMIT Internal Medicine; ATTEND Internal Medicine
PROC: 5A1D70Z Performance of Urinary Filtration, Intermittent, Less than 6 Hours Per Day (ICD-10-PCS; 2019-04-27)
PROC: 5A1D70Z Performance of Urinary Filtration, Intermittent, Less than 6 Hours Per Day (ICD-10-PCS; 2019-04-27)
PROC: 5A1D70Z Performance of Urinary Filtration, Intermittent, Less than 6 Hours Per Day (ICD-10-PCS; 2019-04-27)
PROC: 0JPW0WZ Removal of Totally Implantable Vascular Access Device from Lower Extremity Subcutaneous Tissue and Fascia, Open Approach (ICD-10-PCS; 2019-04-27)
PROC: 06H03DZ Insertion of Intraluminal Device into Inferior Vena Cava, Percutaneous Approach (ICD-10-PCS; principal; 2019-05-01)
DX: T80.211A Bloodstream infection due to central venous catheter, initial encounter (principal); N18.6 End stage renal disease; A41.9 Sepsis, unspecified organism; I82.401 Acute embolism and thrombosis of unspecified deep veins of right lower extremity; I13.2 Hypertensive heart and chronic kidney disease with heart failure and with stage 5 chronic kidney disease, or end stage renal disease; I82.411 Acute embolism and thrombosis of right femoral vein; I50.32 Chronic diastolic (congestive) heart failure; Q61.3 Polycystic kidney, unspecified; B19.20 Unspecified viral hepatitis C without hepatic coma; B95.8 Unspecified staphylococcus as the cause of diseases classified elsewhere; D64.9 Anemia, unspecified; E03.9 Hypothyroidism, unspecified; E78.5 Hyperlipidemia, unspecified; G40.909 Epilepsy, unspecified, not intractable, without status epilepticus; I07.1 Rheumatic tricuspid insufficiency; I27.21 Secondary pulmonary arterial hypertension; B96.89 Other specified bacterial agents as the cause of diseases classified elsewhere; Y82.8 Other medical devices associated with adverse incidents; D69.6 Thrombocytopenia, unspecified; E87.5 Hyperkalemia; Z79.890 Hormone replacement therapy; Z99.2 Dependence on renal dialysis; Z86.79 Personal history of other diseases of the circulatory system; Z79.899 Other long term (current) drug therapy; Z82.49 Family history of ischemic heart disease and other diseases of the circulatory system; Z82.5 Family history of asthma and other chronic lower respiratory diseases; Z83.3 Family history of diabetes mellitus; Y92.89 Other specified places as the place of occurrence of the external cause
CPT/HCPCS: 36415; 36589; 37191; 71045; 74176; 76705; 80048; 80053; 80202; 82550; 82553; 83605; 83735; 84132; 84484; 85025; 87804; 93005; 93306; 93970; 96365; 99285; C1725; C1769; C1880; J1200; J1644; J1650; J1956; J2270; J3370; J3490; J7060

== ENCOUNTER 2019-05-11 15:33 | Inpatient (IN) | payer MEDICARE, MEDICAID ==
[~2019-05-11] VITALS: Ht 162.6 cm; Wt 59.9 kg
[~2019-05-11 15:33] MED LIST changes: +FOLI0.8T23 PO; +HYDR-3282 PO; +KEPP500 PO
[2019-05-11] MEDS ORDERED: SODIUM CHLORIDE 0.9% 1,000 ML IV ONE (16:27)
[2019-05-11 17:38] LABS: BASOPHILS % 1.3 % (0.0-2.0); EOSINOPHILS % 3.7 % (0.0-5.0); HEMOGLOBIN. 10.8 g/dL (12.0-16.0); LYMPHOCYTES % 33.9 % (20.0-50.0); MEAN CORPUSCULAR HEMOGLOBIN 29.2 pg (28.0-32.0); MEAN CORPUSCULAR VOLUME 89.2 fL (81.0-99.0); MEAN PLATELET VOLUME 9.2 fl (7.4-10.4); MONOCYTES % 12.9 % (2.0-8.0); NEUTROPHILS % 48.2 % (40.0-76.0); PLATELET 103 x1000/uL (130-400); RED CELL DISTRIBUTION WIDTH 18.9 % (11.6-14.6)
[2019-05-11 17:45] LABS: CHLORIDE 97 mEq/L (98-107); PROTHROMBIN TIME 10.7 sec (9.6-11.0)
[2019-05-11] MEDS ORDERED: DOCUSATE SODIUM 100MG CAPSULE PO PRN ×2 (17:45→23:00)
[2019-05-11] MEDS ORDERED: MAGNESIUM/ALUMINUM HYDROXIDE/SIMETHICONE 30ML UDC PO PRN ×2 (17:45→23:00)
[2019-05-11] MEDS ORDERED: CLONIDINE 0.1MG TABLET PO PRN (17:45)
[2019-05-11] MEDS ORDERED: DIPHENHYDRAMINE 50MG/ML VIAL IV PRN (17:45)
[2019-05-11] MEDS ORDERED: ACETAMINOPHEN 325MG TABLET PO PRN ×2 (17:45→23:00)
[2019-05-11] MEDS ORDERED: ENOXAPARIN 40MG/0.4ML SYR SUBCUT SCH ×2 (17:45→23:00)
[2019-05-11] MEDS ORDERED: IPRATROPIUM/ALBUTEROL 0.5-3(2.5)MG/3ML NEB NEB PRN ×2 (17:45→23:00)
[2019-05-11] MEDS ORDERED: GUAIFENESIN 200MG/10ML SUGAR FREE UDC PO PRN ×2 (17:45→23:00)
[2019-05-11] MEDS ORDERED: ALBUTEROL (0.083%) 2.5MG/3ML NEB HHN STA (17:57)
[2019-05-11] MEDS ORDERED: INSULIN REGULAR (HUMULIN R) 300UNITS/3ML IV ONE (18:00)
[2019-05-11] MEDS ORDERED: SODIUM POLYSTYRENE SULFONATE 15 G/60 ML BOT PO ONE (18:00)
[2019-05-11] MEDS ORDERED: SODIUM BICARBONATE 8.4% 1 MEQ/ML 50ML SYR IV ONE (18:00)
[2019-05-11] MEDS ORDERED: DEXTROSE 50% WATER 50ML SYRINGE IV ONE (18:00)
[2019-05-11] MEDS ORDERED: DEXTROSE 50% WATER 50ML SYRINGE IV PRN (21:45)
[2019-05-11 22:30] VITALS: BP 104/52
[2019-05-11] MEDS ORDERED: NA PHOS,M-B/NA PHOS,DI-BA ENEMA 118ML PR PRN (23:00)
[2019-05-11] MEDS ORDERED: LORAZEPAM 2MG/ML CPJ IV PRN (23:00)
[2019-05-11] MEDS ORDERED: ONDANSETRON HCL 4MG/2ML INJ IV PRN (23:00)
[2019-05-12] VITALS: BP 112/58
[2019-05-12] MEDS: DIPHENHYDRAMINE 50MG/ML VIAL IV PRN ×3 (00:23→23:32)
[2019-05-12] MEDS ORDERED: DEXTROSE 50% WATER 50ML SYRINGE IV PRN (02:15)
[2019-05-12] MEDS: DEXT 5%/0.45% NACL 1000ML 1,000 ML IV SCH ×2 (02:27→23:32)
[2019-05-12 04:00] VITALS: BP 129/59
[2019-05-12 05:42] LABS: BASOPHILS % 1.2 % (0.0-2.0); EOSINOPHILS % 3.5 % (0.0-5.0); HEMATOCRIT. 29.6 % (36.0-48.0); HEMOGLOBIN. 9.9 g/dL (12.0-16.0); LYMPHOCYTES % 30.3 % (20.0-50.0); MEAN CORPUSCULAR HEMOGLOBIN 29.4 pg (28.0-32.0); MEAN CORPUSCULAR VOLUME 87.9 fL (81.0-99.0); MEAN PLATELET VOLUME 8.6 fl (7.4-10.4); MONOCYTES % 11.8 % (2.0-8.0); NEUTROPHILS % 53.2 % (40.0-76.0); PLATELET 97 x1000/uL (130-400); RED BLOOD CELL COUNT 3.37 mill/uL (4.2-5.4); RED CELL DISTRIBUTION WIDTH 18.5 % (11.6-14.6)
[2019-05-12 06:15] LABS: CHLORIDE 100 mEq/L (98-107)
[2019-05-12 06:24] LABS: LDL CHOLESTEROL 47 mg/dL (5-100)
[2019-05-12 06:25] LABS: HDL CHOLESTEROL 77 mg/dL (40-59)
[2019-05-12] MEDS: BLOOD SUGAR DIAGNOSTIC STRIP TEST SCH ×4 (06:49→20:26)
[2019-05-12 08:00] VITALS: BP 129/54
[2019-05-12] MEDS: INSULIN LISPRO 100 UNITS/ML SUBCUT SCH ×4 (08:10→20:32)
[2019-05-12] MEDS ORDERED: ENOXAPARIN 30MG/0.3ML SYR SUBCUT SCH (09:00)
[2019-05-12] MEDS: ENOXAPARIN 30MG/0.3ML SYR SUBCUT SCH (09:00)
[2019-05-12] MEDS: MORPHINE SULFATE 2 MG/ML CPJ (NOT FOR IM USE) IV PRN ×3 (10:37→21:55)
[2019-05-12 12:00] VITALS: BP 129/64
[2019-05-12 16:00] VITALS: BP 132/70
[2019-05-12 17:50] LABS: HEMATOCRIT 30.6 % (36.0-48.0); HEMOGLOBIN 10.1 g/dL (12.0-16.0)
[2019-05-12 20:00] VITALS: BP 170/66
[2019-05-12] MEDS: CLONIDINE 0.1MG TABLET PO PRN (20:31)
[2019-05-12 20:49] LABS: HEMATOCRIT 33.2 % (36.0-48.0); HEMOGLOBIN 10.9 g/dL (12.0-16.0)
[2019-05-12] MEDS: LEVETIRACETAM 500MG TABLET PO SCH (21:55)
[2019-05-13] VITALS (7 sets, daily range): BP systolic 113–150; BP diastolic 50–86
[2019-05-13 00:59] LABS: HEMATOCRIT 32.2 % (36.0-48.0); HEMOGLOBIN 10.7 g/dL (12.0-16.0)
[2019-05-13] MEDS: MORPHINE SULFATE 2 MG/ML CPJ (NOT FOR IM USE) IV PRN ×3 (03:45→23:08)
[2019-05-13] MEDS: DIPHENHYDRAMINE 50MG/ML VIAL IV PRN (05:10)
[2019-05-13 07:06] LABS: BASOPHILS % 1.2 % (0.0-2.0); EOSINOPHILS % 5.1 % (0.0-5.0); HEMOGLOBIN. 9.7 g/dL (12.0-16.0); LYMPHOCYTES % 35.2 % (20.0-50.0); MEAN CORPUSCULAR HEMOGLOBIN 29.7 pg (28.0-32.0); MEAN CORPUSCULAR VOLUME 88.4 fL (81.0-99.0); MEAN PLATELET VOLUME 8.7 fl (7.4-10.4); MONOCYTES % 11.9 % (2.0-8.0); NEUTROPHILS % 46.6 % (40.0-76.0); PLATELET 94 x1000/uL (130-400); RED BLOOD CELL COUNT 3.28 mill/uL (4.2-5.4); RED CELL DISTRIBUTION WIDTH 18.6 % (11.6-14.6)
[2019-05-13] MEDS: INSULIN LISPRO 100 UNITS/ML SUBCUT SCH ×4 (08:10→20:01)
[2019-05-13] MEDS: LEVOTHYROXINE SODIUM 75MCG TABLET PO SCH (08:23)
[2019-05-13] MEDS: LEVETIRACETAM 500MG TABLET PO SCH ×2 (08:23→20:50)
[2019-05-13] MEDS: BLOOD SUGAR DIAGNOSTIC STRIP TEST SCH ×4 (08:24→20:01)
[2019-05-13] MEDS: ENOXAPARIN 30MG/0.3ML SYR SUBCUT SCH (09:00)
[2019-05-13 21:26] LABS: HEMATOCRIT 29.9 % (36.0-48.0); HEMOGLOBIN 9.7 g/dL (12.0-16.0)
[2019-05-13] MEDS: DEXT 5%/0.45% NACL 1000ML 1,000 ML IV SCH (23:07)
[2019-05-14 00:27] LABS: HEMATOCRIT 31.4 % (36.0-48.0); HEMOGLOBIN 10.5 g/dL (12.0-16.0)
[2019-05-14 04:00] VITALS: BP 101/56
[2019-05-14] MEDS: BLOOD SUGAR DIAGNOSTIC STRIP TEST SCH ×4 (06:27→21:00)
[2019-05-14 07:28] LABS: BASOPHILS % 0.8 % (0.0-2.0); EOSINOPHILS % 6.4 % (0.0-5.0); HEMATOCRIT. 28.1 % (36.0-48.0); HEMOGLOBIN. 9.4 g/dL (12.0-16.0); LYMPHOCYTES % 34.8 % (20.0-50.0); MEAN CORPUSCULAR HEMOGLOBIN 29.6 pg (28.0-32.0); MEAN CORPUSCULAR VOLUME 88.3 fL (81.0-99.0); MEAN PLATELET VOLUME 9.2 fl (7.4-10.4); MONOCYTES % 11.2 % (2.0-8.0); NEUTROPHILS % 46.8 % (40.0-76.0); PLATELET 99 x1000/uL (130-400); RED BLOOD CELL COUNT 3.18 mill/uL (4.2-5.4); RED CELL DISTRIBUTION WIDTH 18.2 % (11.6-14.6)
[2019-05-14 08:00] VITALS: BP 167/113
[2019-05-14] MEDS: INSULIN LISPRO 100 UNITS/ML SUBCUT SCH ×4 (08:10→21:00)
[2019-05-14] MEDS: LEVOTHYROXINE SODIUM 75MCG TABLET PO SCH (08:48)
[2019-05-14] MEDS: LEVETIRACETAM 500MG TABLET PO SCH ×2 (08:48→19:52)
[2019-05-14] MEDS: CLONIDINE 0.1MG TABLET PO PRN (08:49)
[2019-05-14] MEDS: ENOXAPARIN 30MG/0.3ML SYR SUBCUT SCH (08:49)
[2019-05-14 12:00] VITALS: BP 122/50
[2019-05-14] MEDS: SODIUM POLYSTYRENE SULFONATE 15 G/60 ML BOT PO NR ×2 (12:13→12:28)
[2019-05-14 12:23] LABS: HEMATOCRIT 29.5 % (36.0-48.0); HEMOGLOBIN 9.9 g/dL (12.0-16.0)
[2019-05-14 16:00] VITALS: BP 123/60
[2019-05-14] MEDS: HYDROCODONE/ACETAMINOPHEN 5/325MG TABLET PO PRN (19:54)
[2019-05-14 20:00] VITALS: BP 124/66
[2019-05-14 20:28] LABS: HEMATOCRIT 32.1 % (36.0-48.0); HEMOGLOBIN 10.6 g/dL (12.0-16.0)
[2019-05-14] MEDS: DIPHENHYDRAMINE 50MG/ML VIAL IV PRN (21:46)
[2019-05-14] MEDS: DEXT 5%/0.45% NACL 1000ML 1,000 ML IV SCH (23:06)
[2019-05-15] VITALS (7 sets, daily range): BP systolic 105–168; BP diastolic 63–89
[2019-05-15 00:46] LABS: HEMATOCRIT 32.1 % (36.0-48.0); HEMOGLOBIN 10.7 g/dL (12.0-16.0)
[2019-05-15] MEDS: CLONIDINE 0.1MG TABLET PO PRN ×2 (05:57→20:33)
[2019-05-15 06:34] LABS: BASOPHILS % 1.5 % (0.0-2.0); EOSINOPHILS % 7.7 % (0.0-5.0); HEMATOCRIT. 29.1 % (36.0-48.0); HEMOGLOBIN. 9.9 g/dL (12.0-16.0); LYMPHOCYTES % 34.2 % (20.0-50.0); MEAN CORPUSCULAR HEMOGLOBIN 29.6 pg (28.0-32.0); MEAN CORPUSCULAR VOLUME 86.9 fL (81.0-99.0); MEAN PLATELET VOLUME 8.8 fl (7.4-10.4); MONOCYTES % 10.8 % (2.0-8.0); NEUTROPHILS % 45.8 % (40.0-76.0); PLATELET 105 x1000/uL (130-400); RED BLOOD CELL COUNT 3.34 mill/uL (4.2-5.4); RED CELL DISTRIBUTION WIDTH 18.1 % (11.6-14.6)
[2019-05-15] MEDS: BLOOD SUGAR DIAGNOSTIC STRIP TEST SCH ×4 (07:40→21:00)
[2019-05-15] MEDS: INSULIN LISPRO 100 UNITS/ML SUBCUT SCH ×4 (07:45→21:00)
[2019-05-15] MEDS: LEVETIRACETAM 500MG TABLET PO SCH ×2 (08:29→20:33)
[2019-05-15] MEDS: ENOXAPARIN 30MG/0.3ML SYR SUBCUT SCH (08:30)
[2019-05-15] MEDS: HYDROCODONE/ACETAMINOPHEN 5/325MG TABLET PO PRN ×2 (10:42→20:32)
[2019-05-15] MEDS ORDERED: SODIUM BICARBONATE 8.4% 1 MEQ/ML 50ML SYR IV NR (11:54)
[2019-05-15] MEDS ORDERED: DEXTROSE 50% WATER 50ML SYRINGE IV NR (11:54)
[2019-05-15] MEDS ORDERED: INSULIN REGULAR (HUMULIN R) UD 100 UNITS/ML SYR IV NR (12:30)
[2019-05-15] MEDS: LEVOTHYROXINE SODIUM 75MCG TABLET PO SCH (12:38)
[2019-05-15] MEDS ORDERED: SODIUM POLYSTYRENE SULFONATE 15 G/60 ML BOT PO SCH (13:00)
[2019-05-16] VITALS: BP 122/68
[2019-05-16 10:13] LABS: HEMATOCRIT. 22.4 % (36.0-48.0); HEMOGLOBIN. 7.5 g/dL (12.0-16.0); MEAN CORPUSCULAR HEMOGLOBIN 32.8 pg (28.0-32.0); MEAN CORPUSCULAR VOLUME 97.3 fL (81.0-99.0); PLATELET 141 x1000/uL (130-400); RED CELL DISTRIBUTION WIDTH 19.5 % (11.6-14.6)
[2019-05-16 12:09] LABS: PLATELET ESTIMATE NORMAL
== END 2019-05-16 02:15 | DRG 314 ==
LOC: ER 15:33 → 7WST 17:35 → EDBEDREQ 17:52 → ENRESERV 20:38
PROVIDERS: ADMIT Internal Medicine; ATTEND Internal Medicine
PROC: 5A1D70Z Performance of Urinary Filtration, Intermittent, Less than 6 Hours Per Day (ICD-10-PCS; principal; 2019-05-12)
PROC: 5A1D70Z Performance of Urinary Filtration, Intermittent, Less than 6 Hours Per Day (ICD-10-PCS; 2019-05-15)
DX: T82.848A Pain due to vascular prosthetic devices, implants and grafts, initial encounter (principal); N18.6 End stage renal disease; I13.2 Hypertensive heart and chronic kidney disease with heart failure and with stage 5 chronic kidney disease, or end stage renal disease; I50.32 Chronic diastolic (congestive) heart failure; R78.81 Bacteremia; Q61.3 Polycystic kidney, unspecified; B19.20 Unspecified viral hepatitis C without hepatic coma; D63.1 Anemia in chronic kidney disease; D69.6 Thrombocytopenia, unspecified; E11.22 Type 2 diabetes mellitus with diabetic chronic kidney disease; E03.9 Hypothyroidism, unspecified; G40.909 Epilepsy, unspecified, not intractable, without status epilepticus; N27.1 Small kidney, bilateral; Y83.8 Other surgical procedures as the cause of abnormal reaction of the patient, or of later complication, without mention of misadventure at the time of the procedure; B96.89 Other specified bacterial agents as the cause of diseases classified elsewhere; Z82.49 Family history of ischemic heart disease and other diseases of the circulatory system; Z82.5 Family history of asthma and other chronic lower respiratory diseases; Z83.3 Family history of diabetes mellitus; Z87.01 Personal history of pneumonia (recurrent); Z99.2 Dependence on renal dialysis; Z86.718 Personal history of other venous thrombosis and embolism; Z95.828 Presence of other vascular implants and grafts; Z88.0 Allergy status to penicillin; Z88.5 Allergy status to narcotic agent; Z91.040 Latex allergy status; Z88.8 Allergy status to other drugs, medicaments and biological substances; Y92.89 Other specified places as the place of occurrence of the external cause
CPT/HCPCS: 36415; 71045; 74176; 80048; 80053; 80061; 82962; 83036; 83605; 83735; 84132; 84484; 85014; 85018; 85025; 93005; 94640; 96374; 99285; J1200; J1815; J2270; J3490; J7030

== ENCOUNTER 2019-06-28 11:40 | Inpatient (IN) | payer MEDICARE, MEDICAID ==
[~2019-06-28] VITALS: Ht 165.1 cm; Wt 66.2 kg
[~2019-06-28 11:40] MED LIST changes: -NEPVIT PO
[2019-06-28] MEDS ORDERED: ACETAMINOPHEN 325MG TABLET PO ONE (12:15)
[2019-06-28] MEDS ORDERED: VANCOMYCIN 1 G PREMIX 200 ML IV SCH (13:15)
[2019-06-28] MEDS ORDERED: LEVOFLOXACIN 750MG PREMIX 150 ML IV ONE (13:15)
[2019-06-28] MEDS ORDERED: ONDANSETRON HCL 4MG/2ML INJ IV PRN (13:30)
[2019-06-28] MEDS ORDERED: CLONIDINE 0.1MG TABLET PO PRN (13:30)
[2019-06-28] MEDS ORDERED: LEVOFLOXACIN 500MG PREMIX 100 ML IV SCH (13:30)
[2019-06-28] MEDS ORDERED: DOCUSATE SODIUM 100MG CAPSULE PO PRN (13:30)
[2019-06-28 16:38] LABS: HEMATOCRIT. 33.1 % (36.0-48.0); HEMOGLOBIN. 10.9 g/dL (12.0-16.0); MEAN CORPUSCULAR HEMOGLOBIN 31.9 pg (28.0-32.0); MEAN CORPUSCULAR VOLUME 96.5 fL (81.0-99.0); MEAN PLATELET VOLUME 8.2 fl (7.4-10.4); PLATELET 113 x1000/uL (130-400); RED BLOOD CELL COUNT 3.43 mill/uL (4.2-5.4); RED CELL DISTRIBUTION WIDTH 21.9 % (11.6-14.6)
[2019-06-28 16:45] LABS: CHLORIDE 95 mEq/L (98-107)
[2019-06-28 17:04] LABS: PLATELET ESTIMATE DECREASED
[2019-06-28] MEDS ORDERED: LEVETIRACETAM 500MG TABLET PO NR (17:30)
[2019-06-28 23:00] VITALS: BP 128/67
[2019-06-28 23:10] VITALS: BP 146/69
[2019-06-29] VITALS: BP 146/69
[2019-06-29 04:00] VITALS: BP 141/59
[2019-06-29] MEDS: SODIUM CHLORIDE 0.45% 1,000 ML IV SCH ×2 (04:48→17:10)
[2019-06-29] MEDS: HYDRALAZINE HCL 25MG TABLET PO SCH ×3 (06:00→21:15)
[2019-06-29] MEDS: LEVOTHYROXINE SODIUM 75MCG TABLET PO SCH (06:40)
[2019-06-29 08:00] VITALS: BP 123/57
[2019-06-29] MEDS: LEVETIRACETAM 500MG TABLET PO SCH ×2 (08:47→20:31)
[2019-06-29] MEDS: SEVELAMER CARBONATE 800 MG TABLET PO SCH ×3 (08:47→18:05)
[2019-06-29] MEDS: FOLIC ACID/VITAMIN B COMP W-C TABLET PO SCH (08:47)
[2019-06-29] MEDS: ACETAMINOPHEN 325MG TABLET PO PRN ×3 (09:35→22:48)
[2019-06-29 12:00] VITALS: BP 122/52
[2019-06-29] MEDS ORDERED: LIDOCAINE HCL 1% 20ML VIAL (Pyxis) INJ ONE (12:14)
[2019-06-29] MEDS ORDERED: SODIUM BICARBONATE 4% (2.4MEQ) 5ML VIAL IV ONE (12:14)
[2019-06-29 16:00] VITALS: BP 108/48
[2019-06-29 17:35] LABS: HEMATOCRIT. 32.3 % (36.0-48.0); HEMOGLOBIN. 10.8 g/dL (12.0-16.0); MEAN CORPUSCULAR HEMOGLOBIN 31.9 pg (28.0-32.0); MEAN CORPUSCULAR VOLUME 95.9 fL (81.0-99.0); MEAN PLATELET VOLUME 7.5 fl (7.4-10.4); PLATELET 103 x1000/uL (130-400); RED BLOOD CELL COUNT 3.37 mill/uL (4.2-5.4); RED CELL DISTRIBUTION WIDTH 21.9 % (11.6-14.6)
[2019-06-29 17:45] LABS: CHLORIDE 95 mEq/L (98-107)
[2019-06-29 17:52] LABS: HDL CHOLESTEROL 69 mg/dL (40-59); LDL CHOLESTEROL 61 mg/dL (5-100)
[2019-06-29 18:16] LABS: PLATELET ESTIMATE DECREASED
[2019-06-29 20:00] VITALS: BP 125/63
[2019-06-30] VITALS: BP 116/49
[2019-06-30 04:00] VITALS: BP 107/44
[2019-06-30] MEDS: HYDRALAZINE HCL 25MG TABLET PO SCH ×3 (05:46→22:00)
[2019-06-30] MEDS: LEVOTHYROXINE SODIUM 75MCG TABLET PO SCH (05:47)
[2019-06-30 08:00] VITALS: BP 130/61
[2019-06-30] MEDS: FOLIC ACID/VITAMIN B COMP W-C TABLET PO SCH (08:32)
[2019-06-30] MEDS: LEVETIRACETAM 500MG TABLET PO SCH ×2 (08:32→21:50)
[2019-06-30] MEDS: SEVELAMER CARBONATE 800 MG TABLET PO SCH ×3 (08:32→17:18)
[2019-06-30] MEDS: SODIUM CHLORIDE 0.45% 1,000 ML IV SCH (09:58)
[2019-06-30 12:00] VITALS: BP 116/53
[2019-06-30] MEDS ORDERED: LEVOFLOXACIN 250MG PREMIX 50 ML IV SCH (14:00)
[2019-06-30 16:00] VITALS: BP 117/61
[2019-06-30] MEDS ORDERED: VANCOMYCIN 1 G PREMIX 200 ML IV NR (18:00)
[2019-06-30 20:00] VITALS: BP 126/59
[2019-06-30] MEDS: ACETAMINOPHEN 325MG TABLET PO PRN (22:07)
[2019-07-01] VITALS: BP 113/48
[2019-07-01 04:00] VITALS: BP 114/45
[2019-07-01] MEDS: SODIUM CHLORIDE 0.45% 1,000 ML IV SCH (04:15)
[2019-07-01] MEDS: ACETAMINOPHEN 325MG TABLET PO PRN ×2 (04:22→20:15)
[2019-07-01] MEDS: HYDRALAZINE HCL 25MG TABLET PO SCH ×3 (06:00→21:26)
[2019-07-01] MEDS: LEVOTHYROXINE SODIUM 75MCG TABLET PO SCH (06:52)
[2019-07-01 07:09] LABS: HEMATOCRIT. 28.9 % (36.0-48.0); HEMOGLOBIN. 9.8 g/dL (12.0-16.0); MEAN CORPUSCULAR HEMOGLOBIN 31.8 pg (28.0-32.0); MEAN CORPUSCULAR VOLUME 93.8 fL (81.0-99.0); MEAN PLATELET VOLUME 8.3 fl (7.4-10.4); PLATELET 92 x1000/uL (130-400); RED BLOOD CELL COUNT 3.08 mill/uL (4.2-5.4); RED CELL DISTRIBUTION WIDTH 20.5 % (11.6-14.6)
[2019-07-01 07:15] LABS: INR 1.1; PROTHROMBIN TIME 11.9 sec (9.6-11.0)
[2019-07-01 08:00] VITALS: BP 123/50
[2019-07-01] MEDS: FOLIC ACID/VITAMIN B COMP W-C TABLET PO SCH (08:54)
[2019-07-01] MEDS: SEVELAMER CARBONATE 800 MG TABLET PO SCH ×3 (08:54→17:17)
[2019-07-01] MEDS: LEVETIRACETAM 500MG TABLET PO SCH ×2 (08:54→21:26)
[2019-07-01 12:00] VITALS: BP 131/65
[2019-07-01 16:00] VITALS: BP 110/58
[2019-07-01 20:00] VITALS: BP 111/51
[2019-07-01 23:08] LABS: PLATELET ESTIMATE DECREASED
[2019-07-01] MEDS: DIPHENHYDRAMINE 50MG/ML VIAL IV PRN (23:20)
[2019-07-02 04:00] VITALS: BP 130/65
[2019-07-02] MEDS: ACETAMINOPHEN 325MG TABLET PO PRN ×3 (04:34→17:38)
[2019-07-02] MEDS: DIPHENHYDRAMINE 50MG/ML VIAL IV PRN (05:53)
[2019-07-02] MEDS: SODIUM CHLORIDE 0.45% 1,000 ML IV SCH ×2 (05:57→11:53)
[2019-07-02] MEDS: HYDRALAZINE HCL 25MG TABLET PO SCH ×3 (06:00→21:17)
[2019-07-02] MEDS: LEVOTHYROXINE SODIUM 75MCG TABLET PO SCH (06:00)
[2019-07-02 06:50] LABS: HEMATOCRIT. 28.9 % (36.0-48.0); HEMOGLOBIN. 9.8 g/dL (12.0-16.0); MEAN CORPUSCULAR HEMOGLOBIN 31.8 pg (28.0-32.0); MEAN PLATELET VOLUME 8.2 fl (7.4-10.4); PLATELET 88 x1000/uL (130-400); RED BLOOD CELL COUNT 3.08 mill/uL (4.2-5.4); RED CELL DISTRIBUTION WIDTH 21.1 % (11.6-14.6)
[2019-07-02 08:00] VITALS: BP 126/56
[2019-07-02] MEDS: LEVETIRACETAM 500MG TABLET PO SCH ×2 (08:42→21:17)
[2019-07-02] MEDS: FOLIC ACID/VITAMIN B COMP W-C TABLET PO SCH (08:42)
[2019-07-02] MEDS: SEVELAMER CARBONATE 800 MG TABLET PO SCH ×3 (08:42→17:20)
[2019-07-02] MEDS ORDERED: HYDROCODONE/ACETAMINOPHEN 5/325MG TABLET PO PRN (09:30)
[2019-07-02 12:00] VITALS: BP 131/51
[2019-07-02] MEDS: TRAMADOL 50MG TABLET PO PRN ×2 (12:47→21:16)
[2019-07-02 12:59] LABS: NUCLEATED RED BLOOD CELLS 1 /100 WBC
[2019-07-02 13:00] LABS: PLATELET ESTIMATE DECREASED
[2019-07-02 16:00] VITALS: BP 132/59
[2019-07-02 20:00] VITALS: BP 119/52
[2019-07-02] MEDS ORDERED: PREDNISONE 20MG TABLET PO NR (21:00)
[2019-07-03] VITALS (25 sets, daily range): BP systolic 114–162; BP diastolic 53–80
[2019-07-03] MEDS ORDERED: PREDNISONE 20MG TABLET PO NR ×2 (03:00→09:00)
[2019-07-03] MEDS: SODIUM CHLORIDE 0.45% 1,000 ML IV SCH ×2 (03:16→20:15)
[2019-07-03] MEDS: DIPHENHYDRAMINE 50MG/ML VIAL IV PRN ×3 (03:30→20:14)
[2019-07-03] MEDS: HYDRALAZINE HCL 25MG TABLET PO SCH ×3 (06:09→21:56)
[2019-07-03] MEDS: LEVOTHYROXINE SODIUM 75MCG TABLET PO SCH (06:10)
[2019-07-03 06:51] LABS: BASOPHILS % 0.9 % (0.0-2.0); EOSINOPHILS % 0.1 % (0.0-5.0); HEMATOCRIT. 31.5 % (36.0-48.0); HEMOGLOBIN. 10.4 g/dL (12.0-16.0); LYMPHOCYTES % 15.3 % (20.0-50.0); MEAN CORPUSCULAR HEMOGLOBIN 31.2 pg (28.0-32.0); MEAN CORPUSCULAR VOLUME 94.3 fL (81.0-99.0); MEAN PLATELET VOLUME 7.8 fl (7.4-10.4); MONOCYTES % 2.1 % (2.0-8.0); NEUTROPHILS % 81.6 % (40.0-76.0); PLATELET 86 x1000/uL (130-400); RED BLOOD CELL COUNT 3.34 mill/uL (4.2-5.4); RED CELL DISTRIBUTION WIDTH 20.8 % (11.6-14.6)
[2019-07-03] MEDS ORDERED: MORPHINE SULFATE 2 MG/ML CPJ (NOT FOR IM USE) IV NR (08:00)
[2019-07-03] MEDS: FOLIC ACID/VITAMIN B COMP W-C TABLET PO SCH (08:06)
[2019-07-03] MEDS: TRAMADOL 50MG TABLET PO PRN ×2 (08:06→17:11)
[2019-07-03] MEDS: LEVETIRACETAM 500MG TABLET PO SCH ×2 (08:07→20:13)
[2019-07-03] MEDS: SEVELAMER CARBONATE 800 MG TABLET PO SCH ×3 (08:14→17:05)
[2019-07-03] MEDS ORDERED: DIPHENHYDRAMINE 50MG CAPSULE PO NR (09:00)
[2019-07-03] MEDS ORDERED: LIDOCAINE HCL 1% 20ML VIAL (Pyxis) INJ ONE (10:49)
[2019-07-03] MEDS ORDERED: SODIUM BICARBONATE 4% (2.4MEQ) 5ML VIAL IV ONE (10:49)
[2019-07-03] MEDS ORDERED: IOHEXOL-300 100 ML BOTTLE ONE (11:22)
[2019-07-03] MEDS ORDERED: HEPARIN 1000 UNITS/ML 10ML ONE (11:44)
[2019-07-03] MEDS ORDERED: HEPARIN 5000 UNITS/ML VIAL IV ONE (11:45)
[2019-07-03] MEDS ORDERED: VANCOMYCIN 750 MG PREMIX 150 ML IV SCH (17:00)
[2019-07-04] VITALS (7 sets, daily range): BP systolic 98–124; BP diastolic 40–57
[2019-07-04] MEDS: DIPHENHYDRAMINE 50MG/ML VIAL IV PRN ×4 (02:14→15:10)
[2019-07-04] MEDS: HYDRALAZINE HCL 25MG TABLET PO SCH ×2 (06:46→14:00)
[2019-07-04] MEDS: LEVOTHYROXINE SODIUM 75MCG TABLET PO SCH (07:08)
[2019-07-04] MEDS: SEVELAMER CARBONATE 800 MG TABLET PO SCH ×2 (08:19→12:36)
[2019-07-04] MEDS: LEVETIRACETAM 500MG TABLET PO SCH (08:19)
[2019-07-04] MEDS: TRAMADOL 50MG TABLET PO PRN ×2 (08:20→15:10)
[2019-07-04] MEDS: FOLIC ACID/VITAMIN B COMP W-C TABLET PO SCH (08:20)
[2019-07-04 08:27] LABS: BASOPHILS % 0.4 % (0.0-2.0); HEMATOCRIT. 32.3 % (36.0-48.0); HEMOGLOBIN. 10.5 g/dL (12.0-16.0); LYMPHOCYTES % 13.5 % (20.0-50.0); MEAN CORPUSCULAR HEMOGLOBIN 31.1 pg (28.0-32.0); MEAN CORPUSCULAR VOLUME 95.5 fL (81.0-99.0); MEAN PLATELET VOLUME 8.2 fl (7.4-10.4); MONOCYTES % 12.1 % (2.0-8.0); PLATELET 89 x1000/uL (130-400); RED BLOOD CELL COUNT 3.38 mill/uL (4.2-5.4); RED CELL DISTRIBUTION WIDTH 21.2 % (11.6-14.6)
[2019-07-04] MEDS: SODIUM CHLORIDE 0.45% 1,000 ML IV SCH (14:49)
== END 2019-07-04 17:38 | DRG 252 ==
LOC: ER 11:40 → 7EST 15:47 → ENRESERV 21:39 → 6EST 06-29 22:15
PROVIDERS: ADMIT Internal Medicine; ATTEND Internal Medicine
PROC: 0J2WXYZ Change Other Device in Lower Extremity Subcutaneous Tissue and Fascia, External Approach (ICD-10-PCS; 2019-06-29)
PROC: B519ZZA Fluoroscopy of Inferior Vena Cava, Guidance (ICD-10-PCS; 2019-06-29)
PROC: 5A1D70Z Performance of Urinary Filtration, Intermittent, Less than 6 Hours Per Day (ICD-10-PCS; principal; 2019-06-30)
PROC: 5A1D70Z Performance of Urinary Filtration, Intermittent, Less than 6 Hours Per Day (ICD-10-PCS; 2019-07-01)
PROC: 047C3ZZ Dilation of Right Common Iliac Artery, Percutaneous Approach (ICD-10-PCS; 2019-07-03)
PROC: 047H3ZZ Dilation of Right External Iliac Artery, Percutaneous Approach (ICD-10-PCS; 2019-07-03)
PROC: 5A1D70Z Performance of Urinary Filtration, Intermittent, Less than 6 Hours Per Day (ICD-10-PCS; 2019-07-03)
PROC: 0Y9C3ZZ Drainage of Right Upper Leg, Percutaneous Approach (ICD-10-PCS; 2019-07-03)
PROC: B51W1ZZ Fluoroscopy of Dialysis Shunt/Fistula using Low Osmolar Contrast (ICD-10-PCS; 2019-07-03)
PROC: B51F1ZA Fluoroscopy of Right Pelvic (Iliac) Veins using Low Osmolar Contrast, Guidance (ICD-10-PCS; 2019-07-03)
PROC: B5191ZA Fluoroscopy of Inferior Vena Cava using Low Osmolar Contrast, Guidance (ICD-10-PCS; 2019-07-03)
PROC: B41F1ZZ Fluoroscopy of Right Lower Extremity Arteries using Low Osmolar Contrast (ICD-10-PCS; 2019-07-03)
DX: T82.7XXA Infection and inflammatory reaction due to other cardiac and vascular devices, implants and grafts, initial encounter (principal); N18.6 End stage renal disease; A41.02 Sepsis due to Methicillin resistant Staphylococcus aureus; I13.2 Hypertensive heart and chronic kidney disease with heart failure and with stage 5 chronic kidney disease, or end stage renal disease; E87.1 Hypo-osmolality and hyponatremia; I82.421 Acute embolism and thrombosis of right iliac vein; I50.32 Chronic diastolic (congestive) heart failure; D63.1 Anemia in chronic kidney disease; D69.6 Thrombocytopenia, unspecified; E03.9 Hypothyroidism, unspecified; E11.22 Type 2 diabetes mellitus with diabetic chronic kidney disease; G40.909 Epilepsy, unspecified, not intractable, without status epilepticus; B19.20 Unspecified viral hepatitis C without hepatic coma; T82.858A Stenosis of other vascular prosthetic devices, implants and grafts, initial encounter; K57.90 Diverticulosis of intestine, part unspecified, without perforation or abscess without bleeding; Y83.2 Surgical operation with anastomosis, bypass or graft as the cause of abnormal reaction of the patient, or of later complication, without mention of misadventure at the time of the procedure; Y92.89 Other specified places as the place of occurrence of the external cause; Z95.828 Presence of other vascular implants and grafts; Z99.2 Dependence on renal dialysis; Z88.0 Allergy status to penicillin; Z91.041 Radiographic dye allergy status; Z91.013 Allergy to seafood; Z82.49 Family history of ischemic heart disease and other diseases of the circulatory system; Z82.5 Family history of asthma and other chronic lower respiratory diseases; Z83.3 Family history of diabetes mellitus; Z84.1 Family history of disorders of kidney and ureter; Z86.718 Personal history of other venous thrombosis and embolism; Z88.4 Allergy status to anesthetic agent; Z91.040 Latex allergy status; Z88.5 Allergy status to narcotic agent; Z91.018 Allergy to other foods; Z88.8 Allergy status to other drugs, medicaments and biological substances; Z03.818 Encounter for observation for suspected exposure to other biological agents ruled out
CPT/HCPCS: 20611; 36415; 36580; 36901; 71045; 76937; 80048; 80053; 80061; 80202; 82962; 83605; 83735; 84145; 84484; 85025; 85651; 86140; 87420; 87635; 87804; 93005; 93306; 93971; 99152; 99153; 99285; C1725; C1752; C1766; C1769; C1887; J1200; J1642; J1644; J1956; J2270; J3370; J3490; J7512; Q0163; Q9967; G0500

== ENCOUNTER 2019-07-11 11:29 | Emergency (ER) | payer MEDICARE, MEDICAID ==
[~2019-07-11] VITALS: Ht 165.1 cm; Wt 59.0 kg
[2019-07-11 13:50] LABS: HEMATOCRIT. 35.3 % (36.0-48.0); HEMOGLOBIN. 11.5 g/dL (12.0-16.0); MEAN CORPUSCULAR HEMOGLOBIN 30.8 pg (28.0-32.0); MEAN PLATELET VOLUME 8.5 fl (7.4-10.4); PLATELET 93 x1000/uL (130-400); RED BLOOD CELL COUNT 3.72 mill/uL (4.2-5.4); RED CELL DISTRIBUTION WIDTH 20.4 % (11.6-14.6)
[2019-07-11 14:25] LABS: PLATELET ESTIMATE DECREASED
[2019-07-11 15:36] LABS: CHLORIDE 101 mEq/L (98-107)
[2019-07-11 15:41] LABS: INR 1.1; PROTHROMBIN TIME 12.1 sec (9.6-11.0)
[2019-07-11 17:15] VITALS: BP 133/60
== END 2019-07-11 17:50 | disposition home or self-care (01) ==
LOC: ER 11:57 → EDBEDREQ 12:29 → ER 17:50 → CANBEDREQ 23:46
DX: N18.6 End stage renal disease (principal); R58 Hemorrhage, not elsewhere classified; Z88.0 Allergy status to penicillin; Z91.041 Radiographic dye allergy status; Z91.040 Latex allergy status; Z88.6 Allergy status to analgesic agent; Z88.8 Allergy status to other drugs, medicaments and biological substances; Z88.4 Allergy status to anesthetic agent; Z79.899 Other long term (current) drug therapy; Z98.890 Other specified postprocedural states; Z99.2 Dependence on renal dialysis
CPT/HCPCS: 36415; 71045; 80053; 85025; 86850; 86900; 93005; 99285

== ENCOUNTER 2019-07-19 14:36 | Inpatient (IN) | payer MEDICARE, MEDICAID ==
[~2019-07-19] VITALS: Ht 165.1 cm; Wt 70.4 kg
[2019-07-19 16:20] LABS: HEMATOCRIT. 32.6 % (36.0-48.0); HEMOGLOBIN. 10.5 g/dL (12.0-16.0); MEAN CORPUSCULAR HEMOGLOBIN 29.7 pg (28.0-32.0); MEAN CORPUSCULAR VOLUME 91.9 fL (81.0-99.0); MEAN PLATELET VOLUME 9.5 fl (7.4-10.4); PLATELET 52 x1000/uL (130-400); RED BLOOD CELL COUNT 3.55 mill/uL (4.2-5.4); RED CELL DISTRIBUTION WIDTH 19.4 % (11.6-14.6)
[2019-07-19 16:26] LABS: CHLORIDE 101 mEq/L (98-107)
[2019-07-19 16:30] LABS: INR 1.2; PARTIAL THROMBOPLASTIN TIME 32.2 sec (23.4-31.0); PROTHROMBIN TIME 12.8 sec (9.6-11.0)
[2019-07-19 16:58] LABS: PLATELET ESTIMATE MARKEDLY DECREASED
[2019-07-19 22:40] VITALS: BP 117/58
[2019-07-19] MEDS ORDERED: DEXTROSE 50% WATER 50ML SYRINGE IV PRN (23:15)
[2019-07-19] MEDS ORDERED: MORPHINE SULFATE 2 MG/ML CPJ (NOT FOR IM USE) IV PRN (23:15)
[2019-07-19] MEDS ORDERED: HYDROCODONE/APAP 7.5/325MG 1 TAB TABLET PO PRN (23:45)
[2019-07-19] MEDS ORDERED: DIPHENHYDRAMINE HCL 50 MG PO PRN (23:45)
[2019-07-19] MEDS ORDERED: CLONIDINE 0.3MG TABLET PO PRN (23:45)
[2019-07-20] VITALS: BP 117/58
[2019-07-20 04:00] VITALS: BP 115/54
[2019-07-20] MEDS: LEVOTHYROXINE SODIUM 75MCG TABLET PO SCH (06:00)
[2019-07-20] MEDS: BLOOD SUGAR DIAGNOSTIC STRIP TEST SCH ×4 (06:02→21:31)
[2019-07-20] MEDS: HYDROCODONE/APAP 7.5/325MG 1 TAB TABLET PO PRN (06:02)
[2019-07-20] MEDS: INSULIN LISPRO 100 UNITS/ML SUBCUT SCH ×4 (06:09→21:00)
[2019-07-20 08:00] VITALS: BP 97/42
[2019-07-20] MEDS: SEVELAMER CARBONATE 800 MG TABLET PO SCH ×3 (08:53→17:24)
[2019-07-20] MEDS: LEVETIRACETAM 500MG TABLET PO SCH ×2 (08:53→21:30)
[2019-07-20] MEDS: ENOXAPARIN 30MG/0.3ML SYR SUBCUT SCH (08:55)
[2019-07-20] MEDS ORDERED: ENOXAPARIN 40MG/0.4ML SYR SUBCUT SCH (09:00)
[2019-07-20] MEDS: HYDRALAZINE HCL 100MG TABLET PO SCH ×3 (09:00→21:30)
[2019-07-20] MEDS: DIPHENHYDRAMINE 50MG CAPSULE PO PRN (09:07)
[2019-07-20] MEDS ORDERED: LEVOFLOXACIN 250MG PREMIX 50 ML IV SCH (11:15)
[2019-07-20 12:00] VITALS: BP 110/54
[2019-07-20] MEDS ORDERED: LEVOFLOXACIN 500MG PREMIX 100 ML IV SCH (13:00)
[2019-07-20] MEDS ORDERED: LIDOCAINE HCL 1% 20ML VIAL (Pyxis) INJ ONE (13:17)
[2019-07-20] MEDS ORDERED: SODIUM BICARBONATE 4% (2.4MEQ) 5ML VIAL IV ONE (13:17)
[2019-07-20] MEDS ORDERED: VANCOMYCIN 1500MG in DEXTROSE 5% WATER 250ML IV SCH (14:00)
[2019-07-20] MEDS ORDERED: DAPTOMYCIN 250 MG in SODIUM CHLORIDE 0.9% 50 ML IV SCH (15:30)
[2019-07-20 16:00] VITALS: BP 121/52
[2019-07-20 20:00] VITALS: BP 96/42
[2019-07-20] MEDS: DAPTOMYCIN 450 MG in SODIUM CHLORIDE 0.9% 50 ML IV SCH (21:30)
[2019-07-21] VITALS: BP 117/58
[2019-07-21 04:00] VITALS: BP 99/49
[2019-07-21] MEDS: HYDRALAZINE HCL 100MG TABLET PO SCH ×3 (05:49→21:20)
[2019-07-21] MEDS: LEVOTHYROXINE SODIUM 75MCG TABLET PO SCH (06:22)
[2019-07-21] MEDS: BLOOD SUGAR DIAGNOSTIC STRIP TEST SCH ×4 (06:22→20:43)
[2019-07-21 07:43] LABS: BASOPHILS % 1.9 % (0.0-2.0); EOSINOPHILS % 0.6 % (0.0-5.0); HEMOGLOBIN. 10.8 g/dL (12.0-16.0); LYMPHOCYTES % 32.2 % (20.0-50.0); MEAN CORPUSCULAR HEMOGLOBIN 29.7 pg (28.0-32.0); MEAN CORPUSCULAR VOLUME 91.2 fL (81.0-99.0); MEAN PLATELET VOLUME 10.2 fl (7.4-10.4); MONOCYTES % 13.1 % (2.0-8.0); NEUTROPHILS % 52.2 % (40.0-76.0); PLATELET 66 x1000/uL (130-400); RED BLOOD CELL COUNT 3.62 mill/uL (4.2-5.4); RED CELL DISTRIBUTION WIDTH 19.1 % (11.6-14.6)
[2019-07-21] MEDS: INSULIN LISPRO 100 UNITS/ML SUBCUT SCH ×4 (07:50→20:43)
[2019-07-21 08:00] VITALS: BP 114/54
[2019-07-21] MEDS: LEVETIRACETAM 500MG TABLET PO SCH ×2 (08:59→20:43)
[2019-07-21] MEDS: ENOXAPARIN 30MG/0.3ML SYR SUBCUT SCH (09:00)
[2019-07-21] MEDS: SEVELAMER CARBONATE 800 MG TABLET PO SCH ×3 (09:01→17:50)
[2019-07-21 16:00] VITALS: BP 109/49
[2019-07-21] MEDS: HYDROCODONE/APAP 7.5/325MG 1 TAB TABLET PO PRN (17:55)
[2019-07-21 20:00] VITALS: BP 96/42
[2019-07-22] VITALS: BP 99/38
[2019-07-22 04:00] VITALS: BP 96/45
[2019-07-22] MEDS: HYDRALAZINE HCL 100MG TABLET PO SCH ×3 (06:00→21:32)
[2019-07-22 06:23] LABS: HEMATOCRIT. 34.7 % (36.0-48.0); HEMOGLOBIN. 11.4 g/dL (12.0-16.0); MEAN CORPUSCULAR HEMOGLOBIN 29.7 pg (28.0-32.0); MEAN CORPUSCULAR VOLUME 90.6 fL (81.0-99.0); MEAN PLATELET VOLUME 9.4 fl (7.4-10.4); PLATELET 75 x1000/uL (130-400); RED BLOOD CELL COUNT 3.83 mill/uL (4.2-5.4); RED CELL DISTRIBUTION WIDTH 19.3 % (11.6-14.6)
[2019-07-22] MEDS: LEVOTHYROXINE SODIUM 75MCG TABLET PO SCH (06:28)
[2019-07-22] MEDS: BLOOD SUGAR DIAGNOSTIC STRIP TEST SCH ×4 (06:30→21:33)
[2019-07-22] MEDS: INSULIN LISPRO 100 UNITS/ML SUBCUT SCH ×4 (07:50→21:00)
[2019-07-22 08:00] VITALS: BP 98/50
[2019-07-22] MEDS: SEVELAMER CARBONATE 800 MG TABLET PO SCH ×3 (08:29→17:11)
[2019-07-22] MEDS: LEVETIRACETAM 500MG TABLET PO SCH ×2 (08:29→21:33)
[2019-07-22] MEDS: ENOXAPARIN 30MG/0.3ML SYR SUBCUT SCH (08:30)
[2019-07-22 09:06] LABS: IMMUNOGLOBULIN A 341 mg/dL (87-352); IMMUNOGLOBULIN G 1391 mg/dL (586-1602); IMMUNOGLOBULIN M 139 mg/dL (26-217)
[2019-07-22] MEDS: LEVOFLOXACIN 250MG PREMIX 50 ML IV SCH (11:50)
[2019-07-22 12:00] VITALS: BP 90/47
[2019-07-22 14:01] LABS: ATYPICAL LYMPHOCYTES 2
[2019-07-22 14:02] LABS: PLATELET ESTIMATE DECREASED
[2019-07-22 16:00] VITALS: BP 96/48
[2019-07-22 20:00] VITALS: BP 86/37
[2019-07-22] MEDS: DAPTOMYCIN 450 MG in SODIUM CHLORIDE 0.9% 50 ML IV SCH (21:32)
[2019-07-23] VITALS: BP 84/33
[2019-07-23 04:00] VITALS: BP 86/45
[2019-07-23] MEDS: HYDRALAZINE HCL 100MG TABLET PO SCH ×3 (05:46→22:00)
[2019-07-23] MEDS: LEVOTHYROXINE SODIUM 75MCG TABLET PO SCH (06:10)
[2019-07-23] MEDS: BLOOD SUGAR DIAGNOSTIC STRIP TEST SCH ×4 (06:11→21:00)
[2019-07-23] MEDS: INSULIN LISPRO 100 UNITS/ML SUBCUT SCH ×4 (07:50→21:00)
[2019-07-23 08:00] VITALS: BP 96/43
[2019-07-23] MEDS: ENOXAPARIN 30MG/0.3ML SYR SUBCUT SCH (09:00)
[2019-07-23] MEDS: LEVETIRACETAM 500MG TABLET PO SCH ×2 (09:14→23:15)
[2019-07-23] MEDS: SEVELAMER CARBONATE 800 MG TABLET PO SCH ×3 (09:14→17:18)
[2019-07-23 12:00] VITALS: BP 98/51
[2019-07-23 13:36] LABS: HEMATOCRIT. 32.3 % (36.0-48.0); HEMOGLOBIN. 10.6 g/dL (12.0-16.0); MEAN CORPUSCULAR HEMOGLOBIN 29.5 pg (28.0-32.0); MEAN CORPUSCULAR VOLUME 90.3 fL (81.0-99.0); MEAN PLATELET VOLUME 9.4 fl (7.4-10.4); PLATELET 78 x1000/uL (130-400); RED BLOOD CELL COUNT 3.58 mill/uL (4.2-5.4); RED CELL DISTRIBUTION WIDTH 19.7 % (11.6-14.6)
[2019-07-23 16:00] VITALS: BP 90/43
[2019-07-23] MEDS ORDERED: SODIUM POLYSTYRENE SULFONATE 15 G/60 ML BOT PO SCH (16:00)
[2019-07-23 20:00] VITALS: BP 100/44
[2019-07-24] VITALS: BP 97/42
[2019-07-24 04:00] VITALS: BP 102/52
[2019-07-24] MEDS: HYDRALAZINE HCL 100MG TABLET PO SCH ×3 (05:59→22:00)
[2019-07-24] MEDS: LEVOTHYROXINE SODIUM 75MCG TABLET PO SCH (06:44)
[2019-07-24] MEDS: INSULIN LISPRO 100 UNITS/ML SUBCUT SCH ×4 (06:50→21:00)
[2019-07-24] MEDS: BLOOD SUGAR DIAGNOSTIC STRIP TEST SCH ×4 (06:50→21:00)
[2019-07-24 07:50] LABS: PLATELET ESTIMATE DECREASED
[2019-07-24 08:00] VITALS: BP 93/48
[2019-07-24] MEDS: SEVELAMER CARBONATE 800 MG TABLET PO SCH ×3 (08:47→18:07)
[2019-07-24] MEDS: LEVETIRACETAM 500MG TABLET PO SCH ×2 (08:47→23:22)
[2019-07-24] MEDS: ENOXAPARIN 30MG/0.3ML SYR SUBCUT SCH (08:48)
[2019-07-24] MEDS: LEVOFLOXACIN 250MG PREMIX 50 ML IV SCH ×2 (11:22→13:46)
[2019-07-24 12:00] VITALS: BP 103/53
[2019-07-24 15:43] LABS: HEMATOCRIT. 32.2 % (36.0-48.0); HEMOGLOBIN. 10.5 g/dL (12.0-16.0); MEAN CORPUSCULAR HEMOGLOBIN 29.5 pg (28.0-32.0); MEAN CORPUSCULAR VOLUME 89.9 fL (81.0-99.0); PLATELET 80 x1000/uL (130-400); RED BLOOD CELL COUNT 3.58 mill/uL (4.2-5.4); RED CELL DISTRIBUTION WIDTH 19.9 % (11.6-14.6)
[2019-07-24 16:00] VITALS: BP 99/51
[2019-07-24 16:20] LABS: PLATELET ESTIMATE DECREASED
[2019-07-24 20:00] VITALS: BP 97/55
[2019-07-24] MEDS: DAPTOMYCIN 450 MG in SODIUM CHLORIDE 0.9% 50 ML IV SCH (23:22)
[2019-07-25] VITALS: BP_SYST 112; BP_SYST 124; BP_DIAS 55; BP_DIAS 76
[2019-07-25 04:00] VITALS: BP 99/53
[2019-07-25] MEDS: HYDRALAZINE HCL 100MG TABLET PO SCH ×3 (05:54→21:42)
[2019-07-25] MEDS: LEVOTHYROXINE SODIUM 75MCG TABLET PO SCH (06:20)
[2019-07-25] MEDS: BLOOD SUGAR DIAGNOSTIC STRIP TEST SCH ×4 (06:27→21:47)
[2019-07-25 07:07] LABS: ANA IFA Negative (.)
[2019-07-25] MEDS: INSULIN LISPRO 100 UNITS/ML SUBCUT SCH ×4 (07:12→21:00)
[2019-07-25 07:27] LABS: HEMATOCRIT. 31.1 % (36.0-48.0); HEMOGLOBIN. 10.2 g/dL (12.0-16.0); MEAN CORPUSCULAR HEMOGLOBIN 29.1 pg (28.0-32.0); MEAN CORPUSCULAR VOLUME 89.3 fL (81.0-99.0); MEAN PLATELET VOLUME 9.1 fl (7.4-10.4); PLATELET 78 x1000/uL (130-400); RED BLOOD CELL COUNT 3.48 mill/uL (4.2-5.4); RED CELL DISTRIBUTION WIDTH 19.8 % (11.6-14.6)
[2019-07-25 08:00] VITALS: BP 102/44
[2019-07-25] MEDS: LEVETIRACETAM 500MG TABLET PO SCH ×2 (08:23→21:37)
[2019-07-25] MEDS: SEVELAMER CARBONATE 800 MG TABLET PO SCH ×3 (08:23→17:26)
[2019-07-25] MEDS: ENOXAPARIN 30MG/0.3ML SYR SUBCUT SCH (08:24)
[2019-07-25 12:00] VITALS: BP 128/59
[2019-07-25] MEDS ORDERED: MORPHINE SULFATE 2 MG/ML CPJ (NOT FOR IM USE) IV SCH (12:00)
[2019-07-25 12:37] LABS: PLATELET ESTIMATE DECREASED
[2019-07-25 20:00] VITALS: BP 109/56
[2019-07-26] VITALS: BP 101/56
[2019-07-26 04:00] VITALS: BP 101/55
[2019-07-26] MEDS: HYDRALAZINE HCL 100MG TABLET PO SCH ×3 (06:00→22:00)
[2019-07-26] MEDS: BLOOD SUGAR DIAGNOSTIC STRIP TEST SCH ×4 (06:15→20:44)
[2019-07-26] MEDS: INSULIN LISPRO 100 UNITS/ML SUBCUT SCH ×4 (06:59→20:44)
[2019-07-26] MEDS: SEVELAMER CARBONATE 800 MG TABLET PO SCH ×3 (07:05→17:55)
[2019-07-26] MEDS: LEVOTHYROXINE SODIUM 75MCG TABLET PO SCH (07:05)
[2019-07-26] MEDS: ENOXAPARIN 30MG/0.3ML SYR SUBCUT SCH (09:00)
[2019-07-26] MEDS: LEVETIRACETAM 500MG TABLET PO SCH ×2 (09:22→20:46)
[2019-07-26 10:23] LABS: HEMATOCRIT. 32.2 % (36.0-48.0); HEMOGLOBIN. 10.5 g/dL (12.0-16.0); MEAN CORPUSCULAR VOLUME 89.3 fL (81.0-99.0); MEAN PLATELET VOLUME 9.3 fl (7.4-10.4); PLATELET 82 x1000/uL (130-400); RED CELL DISTRIBUTION WIDTH 19.8 % (11.6-14.6)
[2019-07-26 10:27] LABS: CHLORIDE 106 mEq/L (98-107)
[2019-07-26 12:00] VITALS: BP 117/61
[2019-07-26] MEDS: MORPHINE SULFATE 2 MG/ML CPJ (NOT FOR IM USE) IV PRN ×2 (12:43→19:54)
[2019-07-26 16:00] VITALS: BP 122/83
[2019-07-26 16:38] LABS: PLATELET ESTIMATE DECREASED
[2019-07-26 19:54] VITALS: BP 128/67
[2019-07-26] MEDS ORDERED: LIDOCAINE HCL 1% 20ML VIAL (Pyxis) INJ INFIL NR (21:30)
[2019-07-26 23:31] VITALS: BP 101/52
[2019-07-26] MEDS: DAPTOMYCIN 450 MG in SODIUM CHLORIDE 0.9% 50 ML IV SCH (23:46)
[2019-07-27] VITALS: BP 106/73
[2019-07-27 04:00] VITALS: BP 107/48
[2019-07-27] MEDS: MORPHINE SULFATE 2 MG/ML CPJ (NOT FOR IM USE) IV PRN ×2 (04:23→21:01)
[2019-07-27] MEDS: BLOOD SUGAR DIAGNOSTIC STRIP TEST SCH ×4 (05:53→21:00)
[2019-07-27] MEDS: LEVOTHYROXINE SODIUM 75MCG TABLET PO SCH (06:48)
[2019-07-27] MEDS: HYDRALAZINE HCL 100MG TABLET PO SCH ×2 (06:48→14:00)
[2019-07-27] MEDS: INSULIN LISPRO 100 UNITS/ML SUBCUT SCH ×4 (06:49→21:00)
[2019-07-27] MEDS: SEVELAMER CARBONATE 800 MG TABLET PO SCH ×3 (08:45→18:00)
[2019-07-27] MEDS: LEVETIRACETAM 500MG TABLET PO SCH ×2 (08:45→21:01)
[2019-07-27] MEDS: ENOXAPARIN 30MG/0.3ML SYR SUBCUT SCH (08:45)
[2019-07-27 08:51] LABS: HEMATOCRIT. 31.8 % (36.0-48.0); HEMOGLOBIN. 10.3 g/dL (12.0-16.0); MEAN CORPUSCULAR HEMOGLOBIN 29.1 pg (28.0-32.0); MEAN CORPUSCULAR VOLUME 89.8 fL (81.0-99.0); PLATELET 78 x1000/uL (130-400); RED BLOOD CELL COUNT 3.54 mill/uL (4.2-5.4); RED CELL DISTRIBUTION WIDTH 20.2 % (11.6-14.6)
[2019-07-27 12:00] VITALS: BP 101/47
[2019-07-27 12:30] LABS: PLATELET ESTIMATE DECREASED
[2019-07-27 16:00] VITALS: BP 107/52
[2019-07-27 20:00] VITALS: BP 107/58
[2019-07-27] MEDS: HYDRALAZINE HCL 25MG TABLET PO SCH (21:55)
[2019-07-28] VITALS (7 sets, daily range): BP systolic 99–113; BP diastolic 43–59
[2019-07-28] MEDS: MORPHINE SULFATE 2 MG/ML CPJ (NOT FOR IM USE) IV PRN ×2 (04:22→21:54)
[2019-07-28] MEDS: DIPHENHYDRAMINE 50MG CAPSULE PO PRN (04:32)
[2019-07-28] MEDS: INSULIN LISPRO 100 UNITS/ML SUBCUT SCH ×4 (06:11→21:00)
[2019-07-28] MEDS: BLOOD SUGAR DIAGNOSTIC STRIP TEST SCH ×4 (06:11→21:17)
[2019-07-28] MEDS: HYDRALAZINE HCL 25MG TABLET PO SCH ×3 (06:11→21:30)
[2019-07-28] MEDS: LEVOTHYROXINE SODIUM 75MCG TABLET PO SCH (06:11)
[2019-07-28 07:26] LABS: HEMATOCRIT. 30.7 % (36.0-48.0); MEAN CORPUSCULAR HEMOGLOBIN 28.9 pg (28.0-32.0); MEAN CORPUSCULAR VOLUME 88.7 fL (81.0-99.0); MEAN PLATELET VOLUME 9.4 fl (7.4-10.4); PLATELET 79 x1000/uL (130-400); RED BLOOD CELL COUNT 3.47 mill/uL (4.2-5.4); RED CELL DISTRIBUTION WIDTH 19.5 % (11.6-14.6)
[2019-07-28] MEDS: ENOXAPARIN 30MG/0.3ML SYR SUBCUT SCH (09:00)
[2019-07-28] MEDS: SEVELAMER CARBONATE 800 MG TABLET PO SCH ×3 (09:10→18:06)
[2019-07-28] MEDS: LEVETIRACETAM 500MG TABLET PO SCH ×2 (09:10→21:30)
[2019-07-28 11:04] LABS: PLATELET ESTIMATE SLIGHTLY DECREASED
[2019-07-28] MEDS: DAPTOMYCIN 450 MG in SODIUM CHLORIDE 0.9% 50 ML IV SCH (21:54)
[2019-07-29 04:00] VITALS: BP 100/49
[2019-07-29] MEDS: MORPHINE SULFATE 2 MG/ML CPJ (NOT FOR IM USE) IV PRN ×3 (04:29→20:22)
[2019-07-29] MEDS: DIPHENHYDRAMINE 50MG CAPSULE PO PRN ×2 (04:29→20:31)
[2019-07-29] MEDS: HYDRALAZINE HCL 25MG TABLET PO SCH ×3 (06:00→22:00)
[2019-07-29] MEDS: BLOOD SUGAR DIAGNOSTIC STRIP TEST SCH ×4 (06:02→20:20)
[2019-07-29] MEDS: INSULIN LISPRO 100 UNITS/ML SUBCUT SCH ×4 (06:02→20:21)
[2019-07-29] MEDS: LEVOTHYROXINE SODIUM 75MCG TABLET PO SCH (06:16)
[2019-07-29 08:25] VITALS: BP 111/51
[2019-07-29] MEDS: SEVELAMER CARBONATE 800 MG TABLET PO SCH ×3 (09:01→18:24)
[2019-07-29] MEDS: LEVETIRACETAM 500MG TABLET PO SCH ×2 (09:01→20:22)
[2019-07-29] MEDS: ENOXAPARIN 30MG/0.3ML SYR SUBCUT SCH (09:01)
[2019-07-29 16:00] VITALS: BP 120/56
[2019-07-29 19:20] VITALS: BP 129/63
[2019-07-30] VITALS: BP 99/41
[2019-07-30] MEDS: MORPHINE SULFATE 2 MG/ML CPJ (NOT FOR IM USE) IV PRN ×2 (02:14→08:32)
[2019-07-30 04:00] VITALS: BP 106/47
[2019-07-30] MEDS: DIPHENHYDRAMINE 50MG CAPSULE PO PRN ×2 (06:00→15:35)
[2019-07-30] MEDS: LEVOTHYROXINE SODIUM 75MCG TABLET PO SCH (06:00)
[2019-07-30] MEDS: HYDRALAZINE HCL 25MG TABLET PO SCH ×3 (06:00→21:54)
[2019-07-30] MEDS: INSULIN LISPRO 100 UNITS/ML SUBCUT SCH ×4 (06:01→21:00)
[2019-07-30] MEDS: BLOOD SUGAR DIAGNOSTIC STRIP TEST SCH ×4 (06:01→21:53)
[2019-07-30 08:00] VITALS: BP 103/41
[2019-07-30] MEDS: SEVELAMER CARBONATE 800 MG TABLET PO SCH ×3 (08:28→16:47)
[2019-07-30] MEDS: LEVETIRACETAM 500MG TABLET PO SCH ×2 (08:28→21:54)
[2019-07-30] MEDS: ENOXAPARIN 30MG/0.3ML SYR SUBCUT SCH (08:30)
[2019-07-30] MEDS ORDERED: DIPHENHYDRAMINE 50MG/ML VIAL IV SCH (11:30)
[2019-07-30 12:00] VITALS: BP 111/57
[2019-07-30 16:00] VITALS: BP 107/56
[2019-07-30] MEDS: HYDROCODONE/ACETAMINOPHEN 5/325MG TABLET PO PRN (16:48)
[2019-07-30 20:00] VITALS: BP 114/57
[2019-07-31] VITALS: BP 110/50
[2019-07-31] MEDS: HYDROCODONE/ACETAMINOPHEN 5/325MG TABLET PO PRN ×2 (01:00→08:41)
[2019-07-31 04:00] VITALS: BP 104/47
[2019-07-31] MEDS: HYDRALAZINE HCL 25MG TABLET PO SCH ×3 (06:00→21:14)
[2019-07-31] MEDS: BLOOD SUGAR DIAGNOSTIC STRIP TEST SCH ×4 (06:09→21:13)
[2019-07-31] MEDS: SEVELAMER CARBONATE 800 MG TABLET PO SCH ×3 (06:15→17:24)
[2019-07-31] MEDS: LEVOTHYROXINE SODIUM 75MCG TABLET PO SCH (06:15)
[2019-07-31] MEDS: DIPHENHYDRAMINE 50MG CAPSULE PO PRN ×2 (06:15→12:34)
[2019-07-31] MEDS: INSULIN LISPRO 100 UNITS/ML SUBCUT SCH ×4 (06:16→21:00)
[2019-07-31 07:35] LABS: BASOPHILS % 1.7 % (0.0-2.0); EOSINOPHILS % 1.1 % (0.0-5.0); HEMATOCRIT. 32.9 % (36.0-48.0); HEMOGLOBIN. 10.7 g/dL (12.0-16.0); LYMPHOCYTES % 24.2 % (20.0-50.0); MEAN CORPUSCULAR HEMOGLOBIN 28.9 pg (28.0-32.0); MEAN CORPUSCULAR VOLUME 89.2 fL (81.0-99.0); MEAN PLATELET VOLUME 9.8 fl (7.4-10.4); MONOCYTES % 13.6 % (2.0-8.0); NEUTROPHILS % 59.4 % (40.0-76.0); PLATELET 63 x1000/uL (130-400); RED BLOOD CELL COUNT 3.69 mill/uL (4.2-5.4); RED CELL DISTRIBUTION WIDTH 20.2 % (11.6-14.6)
[2019-07-31 08:00] VITALS: BP 100/70
[2019-07-31] MEDS: LEVETIRACETAM 500MG TABLET PO SCH ×2 (08:41→22:16)
[2019-07-31] MEDS: ENOXAPARIN 30MG/0.3ML SYR SUBCUT SCH (08:42)
[2019-07-31 12:00] VITALS: BP 101/76
[2019-07-31 16:00] VITALS: BP 98/68
[2019-07-31 20:41] VITALS: BP 106/47
[2019-07-31] MEDS: ACETAMINOPHEN 325MG TABLET PO PRN (22:17)
[2019-08-01] VITALS (7 sets, daily range): BP systolic 107–120; BP diastolic 52–83
[2019-08-01] MEDS: HYDRALAZINE HCL 25MG TABLET PO SCH ×3 (05:13→22:00)
[2019-08-01] MEDS: BLOOD SUGAR DIAGNOSTIC STRIP TEST SCH ×4 (05:49→21:19)
[2019-08-01] MEDS: INSULIN LISPRO 100 UNITS/ML SUBCUT SCH ×4 (06:13→21:00)
[2019-08-01] MEDS: SEVELAMER CARBONATE 800 MG TABLET PO SCH ×3 (06:15→17:34)
[2019-08-01] MEDS: LEVOTHYROXINE SODIUM 75MCG TABLET PO SCH (06:15)
[2019-08-01] MEDS: LEVETIRACETAM 500MG TABLET PO SCH ×2 (08:33→21:24)
[2019-08-02] VITALS (7 sets, daily range): BP systolic 99–125; BP diastolic 36–61
[2019-08-02] MEDS: HYDROCODONE/ACETAMINOPHEN 5/325MG TABLET PO PRN (04:20)
[2019-08-02] MEDS: HYDRALAZINE HCL 25MG TABLET PO SCH ×3 (05:10→22:00)
[2019-08-02] MEDS: BLOOD SUGAR DIAGNOSTIC STRIP TEST SCH ×4 (05:45→21:12)
[2019-08-02] MEDS: INSULIN LISPRO 100 UNITS/ML SUBCUT SCH ×4 (05:53→21:00)
[2019-08-02] MEDS: SEVELAMER CARBONATE 800 MG TABLET PO SCH ×3 (06:25→17:51)
[2019-08-02] MEDS: LEVOTHYROXINE SODIUM 75MCG TABLET PO SCH (06:26)
[2019-08-02] MEDS: LEVETIRACETAM 500MG TABLET PO SCH ×2 (09:12→21:16)
[2019-08-02] MEDS: DIPHENHYDRAMINE 50MG CAPSULE PO PRN (09:29)
[2019-08-03] VITALS (7 sets, daily range): BP systolic 89–124; BP diastolic 39–99
[2019-08-03] MEDS: LEVOTHYROXINE SODIUM 75MCG TABLET PO SCH (06:22)
[2019-08-03] MEDS: SEVELAMER CARBONATE 800 MG TABLET PO SCH ×3 (06:22→17:42)
[2019-08-03] MEDS: HYDRALAZINE HCL 25MG TABLET PO SCH ×3 (06:22→21:55)
[2019-08-03] MEDS: BLOOD SUGAR DIAGNOSTIC STRIP TEST SCH ×4 (06:23→21:58)
[2019-08-03 06:40] LABS: HEMATOCRIT. 32.5 % (36.0-48.0); HEMOGLOBIN. 10.6 g/dL (12.0-16.0); MEAN CORPUSCULAR HEMOGLOBIN 29.1 pg (28.0-32.0); MEAN CORPUSCULAR VOLUME 89.3 fL (81.0-99.0); MEAN PLATELET VOLUME 10.1 fl (7.4-10.4); PLATELET 82 x1000/uL (130-400); RED BLOOD CELL COUNT 3.64 mill/uL (4.2-5.4)
[2019-08-03] MEDS: INSULIN LISPRO 100 UNITS/ML SUBCUT SCH ×4 (07:15→21:00)
[2019-08-03] MEDS: LEVETIRACETAM 500MG TABLET PO SCH ×2 (08:42→21:55)
[2019-08-03 11:53] LABS: PLATELET ESTIMATE DECREASED
[2019-08-03] MEDS: ONDANSETRON HCL 4MG TABLET PO PRN (14:00)
[2019-08-03] MEDS: DIPHENHYDRAMINE 50MG CAPSULE PO PRN (14:04)
[2019-08-03] MEDS: HYDROCODONE/ACETAMINOPHEN 5/325MG TABLET PO PRN (15:15)
[2019-08-04] VITALS: BP 99/50
[2019-08-04] MEDS: HYDRALAZINE HCL 25MG TABLET PO SCH ×3 (06:00→22:00)
[2019-08-04] MEDS: LEVOTHYROXINE SODIUM 75MCG TABLET PO SCH (06:35)
[2019-08-04] MEDS: SEVELAMER CARBONATE 800 MG TABLET PO SCH ×3 (06:35→16:43)
[2019-08-04] MEDS: INSULIN LISPRO 100 UNITS/ML SUBCUT SCH ×4 (06:52→21:00)
[2019-08-04] MEDS: BLOOD SUGAR DIAGNOSTIC STRIP TEST SCH ×4 (06:52→21:00)
[2019-08-04 08:00] VITALS: BP 97/46
[2019-08-04] MEDS: LEVETIRACETAM 500MG TABLET PO SCH ×2 (09:37→20:39)
[2019-08-04 12:00] VITALS: BP 95/44
[2019-08-04 16:00] VITALS: BP 117/57
[2019-08-04 20:00] VITALS: BP 96/46
[2019-08-04] MEDS: DIPHENHYDRAMINE 50MG CAPSULE PO PRN (20:52)
[2019-08-05] VITALS: BP 107/42
[2019-08-05 04:00] VITALS: BP 107/43
[2019-08-05] MEDS: HYDRALAZINE HCL 25MG TABLET PO SCH ×3 (05:41→22:00)
[2019-08-05] MEDS: LEVOTHYROXINE SODIUM 75MCG TABLET PO SCH (05:50)
[2019-08-05] MEDS: INSULIN LISPRO 100 UNITS/ML SUBCUT SCH ×4 (06:02→20:46)
[2019-08-05] MEDS: BLOOD SUGAR DIAGNOSTIC STRIP TEST SCH ×4 (06:02→20:46)
[2019-08-05 08:00] VITALS: BP 97/42
[2019-08-05 08:08] LABS: HEMATOCRIT. 29.8 % (36.0-48.0); HEMOGLOBIN. 9.8 g/dL (12.0-16.0); MEAN CORPUSCULAR VOLUME 87.8 fL (81.0-99.0); MEAN PLATELET VOLUME 9.8 fl (7.4-10.4); PLATELET 67 x1000/uL (130-400); RED CELL DISTRIBUTION WIDTH 20.7 % (11.6-14.6)
[2019-08-05] MEDS: LEVETIRACETAM 500MG TABLET PO SCH ×2 (09:00→21:25)
[2019-08-05] MEDS: SEVELAMER CARBONATE 800 MG TABLET PO SCH ×3 (09:00→17:17)
[2019-08-05 12:00] VITALS: BP 100/60
[2019-08-05] MEDS: ACETAMINOPHEN 325MG TABLET PO PRN ×2 (13:56→17:48)
[2019-08-05 14:46] LABS: PLATELET ESTIMATE DECREASED
[2019-08-05 16:00] VITALS: BP 109/58
[2019-08-05] MEDS: DIPHENHYDRAMINE 50MG CAPSULE PO PRN (18:50)
[2019-08-05] MEDS ORDERED: LIDOCAINE HCL 4% CREAM 76GM TUBE TP PRN (19:13)
[2019-08-05] MEDS: HYDROCODONE/ACETAMINOPHEN 5/325MG TABLET PO PRN (21:02)
[2019-08-06] VITALS: BP 114/59
[2019-08-06 04:00] VITALS: BP 121/59
[2019-08-06] MEDS: BLOOD SUGAR DIAGNOSTIC STRIP TEST SCH ×4 (06:31→21:40)
[2019-08-06] MEDS: INSULIN LISPRO 100 UNITS/ML SUBCUT SCH ×4 (06:31→21:00)
[2019-08-06] MEDS: HYDRALAZINE HCL 25MG TABLET PO SCH ×3 (06:32→21:40)
[2019-08-06] MEDS: LEVOTHYROXINE SODIUM 75MCG TABLET PO SCH (06:32)
[2019-08-06 07:50] LABS: HEMOGLOBIN. 9.2 g/dL (12.0-16.0); PLATELET 70 x1000/uL (130-400); RED BLOOD CELL COUNT 3.18 mill/uL (4.2-5.4); RED CELL DISTRIBUTION WIDTH 20.8 % (11.6-14.6)
[2019-08-06 08:00] VITALS: BP 90/43
[2019-08-06] MEDS: LEVETIRACETAM 500MG TABLET PO SCH ×2 (08:37→21:28)
[2019-08-06] MEDS: SEVELAMER CARBONATE 800 MG TABLET PO SCH ×3 (08:37→17:29)
[2019-08-06 10:12] LABS: PLATELET ESTIMATE DECREASED
[2019-08-06 12:00] VITALS: BP 100/52
[2019-08-06 16:23] VITALS: BP 112/56
[2019-08-06] MEDS: ONDANSETRON HCL 4MG TABLET PO PRN (19:45)
[2019-08-06 20:00] VITALS: BP 112/44
[2019-08-06] MEDS ORDERED: METOCLOPRAMIDE HCL 10MG/2ML VIAL IV PRN (22:15)
[2019-08-07] VITALS (7 sets, daily range): BP systolic 102–132; BP diastolic 50–87
[2019-08-07] MEDS: LEVOTHYROXINE SODIUM 75MCG TABLET PO SCH (05:50)
[2019-08-07] MEDS: HYDRALAZINE HCL 25MG TABLET PO SCH ×3 (05:51→22:00)
[2019-08-07] MEDS: INSULIN LISPRO 100 UNITS/ML SUBCUT SCH ×4 (06:20→20:42)
[2019-08-07] MEDS: BLOOD SUGAR DIAGNOSTIC STRIP TEST SCH ×4 (06:20→20:41)
[2019-08-07 06:58] LABS: HEMATOCRIT. 28.7 % (36.0-48.0); HEMOGLOBIN. 9.6 g/dL (12.0-16.0); MEAN CORPUSCULAR HEMOGLOBIN 29.4 pg (28.0-32.0); MEAN CORPUSCULAR VOLUME 87.8 fL (81.0-99.0); MEAN PLATELET VOLUME 10.1 fl (7.4-10.4); PLATELET 85 x1000/uL (130-400); RED BLOOD CELL COUNT 3.27 mill/uL (4.2-5.4); RED CELL DISTRIBUTION WIDTH 20.1 % (11.6-14.6)
[2019-08-07] MEDS: SEVELAMER CARBONATE 800 MG TABLET PO SCH ×3 (09:00→17:15)
[2019-08-07] MEDS: LEVETIRACETAM 500MG TABLET PO SCH ×2 (09:00→22:31)
[2019-08-07 13:45] LABS: PLATELET ESTIMATE DECREASED
[2019-08-07] MEDS: HYDROCODONE/ACETAMINOPHEN 5/325MG TABLET PO PRN (14:34)
[2019-08-07] MEDS: DIPHENHYDRAMINE 50MG CAPSULE PO PRN (17:20)
[2019-08-08] VITALS: BP 106/44
[2019-08-08] MEDS: ACETAMINOPHEN 325MG TABLET PO PRN (01:57)
[2019-08-08 04:00] VITALS: BP 104/50
[2019-08-08] MEDS: HYDRALAZINE HCL 25MG TABLET PO SCH ×2 (06:00→13:39)
[2019-08-08] MEDS: BLOOD SUGAR DIAGNOSTIC STRIP TEST SCH ×2 (06:31→11:44)
[2019-08-08] MEDS: LEVOTHYROXINE SODIUM 75MCG TABLET PO SCH (06:32)
[2019-08-08] MEDS: INSULIN LISPRO 100 UNITS/ML SUBCUT SCH ×2 (06:33→11:47)
[2019-08-08] MEDS: DIPHENHYDRAMINE 50MG CAPSULE PO PRN (06:37)
[2019-08-08 08:00] VITALS: BP 115/54
[2019-08-08] MEDS: LEVETIRACETAM 500MG TABLET PO SCH (08:44)
[2019-08-08] MEDS: SEVELAMER CARBONATE 800 MG TABLET PO SCH ×2 (08:44→11:44)
[2019-08-08] MEDS: HYDROCODONE/ACETAMINOPHEN 5/325MG TABLET PO PRN (08:46)
[2019-08-08] MEDS: ONDANSETRON HCL 4MG TABLET PO PRN (08:47)
[2019-08-08 09:02] LABS: HEMATOCRIT. 28.3 % (36.0-48.0); HEMOGLOBIN. 9.4 g/dL (12.0-16.0); MEAN CORPUSCULAR HEMOGLOBIN 29.1 pg (28.0-32.0); MEAN CORPUSCULAR VOLUME 87.4 fL (81.0-99.0); MEAN PLATELET VOLUME 9.5 fl (7.4-10.4); PLATELET 76 x1000/uL (130-400); RED BLOOD CELL COUNT 3.24 mill/uL (4.2-5.4); RED CELL DISTRIBUTION WIDTH 20.6 % (11.6-14.6)
[2019-08-08 12:00] VITALS: BP 97/49
[2019-08-08 12:57] VITALS: BP 97/49
[2019-08-08 13:31] LABS: PLATELET ESTIMATE DECREASED
== END 2019-08-08 15:50 | DRG 314 ==
LOC: ER 14:47 → 6EST 15:56 → EDBEDREQ 16:22 → ENRESERV 20:18 → 5WST 07-26 04:39
PROVIDERS: ADMIT Internal Medicine; ATTEND Internal Medicine
PROC: 02HV33Z Insertion of Infusion Device into Superior Vena Cava, Percutaneous Approach (ICD-10-PCS; principal; 2019-07-20)
PROC: B518ZZA Fluoroscopy of Superior Vena Cava, Guidance (ICD-10-PCS; 2019-07-20)
PROC: B548ZZA Ultrasonography of Superior Vena Cava, Guidance (ICD-10-PCS; 2019-07-20)
PROC: 5A1D70Z Performance of Urinary Filtration, Intermittent, Less than 6 Hours Per Day (ICD-10-PCS; 2019-07-20)
PROC: 5A1D70Z Performance of Urinary Filtration, Intermittent, Less than 6 Hours Per Day (ICD-10-PCS; 2019-07-24)
PROC: 5A1D70Z Performance of Urinary Filtration, Intermittent, Less than 6 Hours Per Day (ICD-10-PCS; 2019-07-26)
PROC: 5A1D70Z Performance of Urinary Filtration, Intermittent, Less than 6 Hours Per Day (ICD-10-PCS; 2019-07-28)
PROC: 5A1D70Z Performance of Urinary Filtration, Intermittent, Less than 6 Hours Per Day (ICD-10-PCS; 2019-07-31)
PROC: 5A1D70Z Performance of Urinary Filtration, Intermittent, Less than 6 Hours Per Day (ICD-10-PCS; 2019-08-03)
PROC: 5A1D70Z Performance of Urinary Filtration, Intermittent, Less than 6 Hours Per Day (ICD-10-PCS; 2019-08-05)
PROC: 5A1D70Z Performance of Urinary Filtration, Intermittent, Less than 6 Hours Per Day (ICD-10-PCS; 2019-08-07)
DX: T82.7XXA Infection and inflammatory reaction due to other cardiac and vascular devices, implants and grafts, initial encounter (principal); A41.9 Sepsis, unspecified organism; N18.6 End stage renal disease; D61.818 Other pancytopenia; T82.312A Breakdown (mechanical) of femoral arterial graft (bypass), initial encounter; I50.32 Chronic diastolic (congestive) heart failure; E46 Unspecified protein-calorie malnutrition; Q61.3 Polycystic kidney, unspecified; D69.3 Immune thrombocytopenic purpura; I13.2 Hypertensive heart and chronic kidney disease with heart failure and with stage 5 chronic kidney disease, or end stage renal disease; Y83.8 Other surgical procedures as the cause of abnormal reaction of the patient, or of later complication, without mention of misadventure at the time of the procedure; B19.20 Unspecified viral hepatitis C without hepatic coma; E11.22 Type 2 diabetes mellitus with diabetic chronic kidney disease; G40.909 Epilepsy, unspecified, not intractable, without status epilepticus; I25.10 Atherosclerotic heart disease of native coronary artery without angina pectoris; D63.1 Anemia in chronic kidney disease; E03.9 Hypothyroidism, unspecified; L29.9 Pruritus, unspecified; T36.0X5A Adverse effect of penicillins, initial encounter; T36.8X5A Adverse effect of other systemic antibiotics, initial encounter; E87.5 Hyperkalemia; Y83.2 Surgical operation with anastomosis, bypass or graft as the cause of abnormal reaction of the patient, or of later complication, without mention of misadventure at the time of the procedure; Y92.89 Other specified places as the place of occurrence of the external cause; Z99.2 Dependence on renal dialysis; Z95.828 Presence of other vascular implants and grafts; Z86.718 Personal history of other venous thrombosis and embolism; Z88.5 Allergy status to narcotic agent; Z88.0 Allergy status to penicillin; Z88.8 Allergy status to other drugs, medicaments and biological substances; Z88.6 Allergy status to analgesic agent; Z91.041 Radiographic dye allergy status; Z91.040 Latex allergy status; Z83.3 Family history of diabetes mellitus; Z82.5 Family history of asthma and other chronic lower respiratory diseases; Z82.49 Family history of ischemic heart disease and other diseases of the circulatory system; Z86.14 Personal history of Methicillin resistant Staphylococcus aureus infection; Z79.890 Hormone replacement therapy; Z79.899 Other long term (current) drug therapy
CPT/HCPCS: 36415; 71045; 76937; 77001; 80048; 80051; 80053; 80202; 82784; 82962; 83036; 83735; 83880; 84484; 85025; 85049; 86256; 86334; 93005; 93922; 93971; 99285; J0878; J1200; J1642; J1650; J1956; J2270; J2765; J3370; J3490; J7060; Q0162; Q0163

== ENCOUNTER 2019-08-24 01:18 | Inpatient (IN) | payer MEDICARE, MEDICAID ==
[~2019-08-24] VITALS: Ht 162.6 cm; Wt 64.4 kg
[2019-08-24 03:17] LABS: BASOPHILS % 0.6 % (0.0-2.0); EOSINOPHILS % 2.7 % (0.0-5.0); HEMATOCRIT. 36.8 % (36.0-48.0); HEMOGLOBIN. 11.9 g/dL (12.0-16.0); LYMPHOCYTES % 27.9 % (20.0-50.0); MEAN CORPUSCULAR HEMOGLOBIN 29.6 pg (28.0-32.0); MEAN CORPUSCULAR VOLUME 91.6 fL (81.0-99.0); MEAN PLATELET VOLUME 9.4 fl (7.4-10.4); MONOCYTES % 12.9 % (2.0-8.0); NEUTROPHILS % 55.9 % (40.0-76.0); PLATELET 72 x1000/uL (130-400); RED BLOOD CELL COUNT 4.02 mill/uL (4.2-5.4); RED CELL DISTRIBUTION WIDTH 24.1 % (11.6-14.6)
[2019-08-24 03:20] LABS: CHLORIDE 98 mEq/L (98-107)
[2019-08-24 03:22] LABS: INR 1.1; PARTIAL THROMBOPLASTIN TIME 27.3 sec (23.4-31.0); PROTHROMBIN TIME 11.8 sec (9.6-11.0)
[2019-08-24 03:33] LABS: C REACTIVE PROTEIN QUANT 2.3 mg/L (0.0-3.0)
[2019-08-24] MEDS ORDERED: DIPHENHYDRAMINE 50MG/ML VIAL IV ONE (06:00)
[2019-08-24 08:55] VITALS: BP 98/46
[2019-08-24 09:00] VITALS: BP 98/46
[2019-08-24] MEDS ORDERED: NA PHOS,M-B/NA PHOS,DI-BA ENEMA 118ML PR PRN (09:30)
[2019-08-24] MEDS ORDERED: ONDANSETRON HCL 4MG/2ML INJ IV PRN (09:30)
[2019-08-24] MEDS ORDERED: ACETAMINOPHEN 325MG TABLET PO PRN (09:30)
[2019-08-24] MEDS ORDERED: DOCUSATE SODIUM 100MG CAPSULE PO PRN (09:30)
[2019-08-24] MEDS ORDERED: LORAZEPAM 2MG/ML CPJ IV PRN (09:30)
[2019-08-24] MEDS ORDERED: IPRATROPIUM/ALBUTEROL 0.5-3(2.5)MG/3ML NEB NEB PRN (09:30)
[2019-08-24] MEDS ORDERED: CLONIDINE 0.1MG TABLET PO PRN (09:30)
[2019-08-24] MEDS ORDERED: GUAIFENESIN 200MG/10ML SUGAR FREE UDC PO PRN (09:30)
[2019-08-24] MEDS ORDERED: MAGNESIUM/ALUMINUM HYDROXIDE/SIMETHICONE 30ML UDC PO PRN (09:30)
[2019-08-24 10:00] VITALS: BP 98/46
[2019-08-24] MEDS: ASPIRIN 81MG EC TABLET PO SCH (10:39)
[2019-08-24 12:00] VITALS: BP_SYST 99; BP_DIAS 47; BP_DIAS 49
[2019-08-24] MEDS: DIPHENHYDRAMINE 50MG/ML VIAL IV PRN ×2 (13:25→22:08)
[2019-08-24] MEDS: MORPHINE SULFATE 2 MG/ML CPJ (NOT FOR IM USE) IV PRN ×2 (13:25→22:08)
[2019-08-24 16:00] VITALS: BP 100/45
[2019-08-24 20:00] VITALS: BP 100/51
[2019-08-25] VITALS: BP 104/42
[2019-08-25] MEDS: DIPHENHYDRAMINE 50MG/ML VIAL IV PRN ×3 (02:12→21:27)
[2019-08-25 04:00] VITALS: BP 99/45
[2019-08-25 07:24] LABS: HEMATOCRIT. 33.6 % (36.0-48.0); MEAN CORPUSCULAR VOLUME 92.1 fL (81.0-99.0); MEAN PLATELET VOLUME 9.3 fl (7.4-10.4); PLATELET 67 x1000/uL (130-400); RED BLOOD CELL COUNT 3.65 mill/uL (4.2-5.4); RED CELL DISTRIBUTION WIDTH 23.5 % (11.6-14.6)
[2019-08-25 07:44] LABS: CHLORIDE 101 mEq/L (98-107)
[2019-08-25 07:57] LABS: T4 FREE 1.05 ng/dL (0.76-1.46)
[2019-08-25 07:58] LABS: LDL CHOLESTEROL 81 mg/dL (5-100)
[2019-08-25 08:00] VITALS: BP 129/51
[2019-08-25 08:00] LABS: HDL CHOLESTEROL 70 mg/dL (40-59)
[2019-08-25] MEDS: ASPIRIN 81MG EC TABLET PO SCH (08:44)
[2019-08-25] MEDS: MORPHINE SULFATE 2 MG/ML CPJ (NOT FOR IM USE) IV PRN ×2 (08:47→21:19)
[2019-08-25] MEDS ORDERED: ENOXAPARIN 30MG/0.3ML SYR SUBCUT SCH (09:00)
[2019-08-25 09:40] LABS: PLATELET ESTIMATE DECREASED
[2019-08-25 12:00] VITALS: BP 102/50
[2019-08-25] MEDS: LEVOTHYROXINE SODIUM 112MCG TABLET PO SCH (13:12)
[2019-08-25 16:00] VITALS: BP 100/50
[2019-08-25 20:00] VITALS: BP 105/50
[2019-08-25] MEDS ORDERED: POTASSIUM CHLORIDE 20MEQ TABLET SR PO ONE (23:30)
[2019-08-26] VITALS: BP 121/52
[2019-08-26 04:00] VITALS: BP 101/33
[2019-08-26] MEDS: LEVOTHYROXINE SODIUM 112MCG TABLET PO SCH (06:35)
[2019-08-26] MEDS: MORPHINE SULFATE 2 MG/ML CPJ (NOT FOR IM USE) IV PRN (06:44)
[2019-08-26 07:32] LABS: HEMOGLOBIN. 11.2 g/dL (12.0-16.0); MEAN CORPUSCULAR HEMOGLOBIN 29.9 pg (28.0-32.0); MEAN PLATELET VOLUME 9.4 fl (7.4-10.4); PLATELET 79 x1000/uL (130-400); RED BLOOD CELL COUNT 3.73 mill/uL (4.2-5.4); RED CELL DISTRIBUTION WIDTH 23.1 % (11.6-14.6)
[2019-08-26 08:00] VITALS: BP 107/49
[2019-08-26] MEDS: ASPIRIN 81MG EC TABLET PO SCH (08:37)
[2019-08-26] MEDS: DIPHENHYDRAMINE 50MG/ML VIAL IV PRN (11:49)
[2019-08-26 12:00] VITALS: BP 102/56
[2019-08-26 13:01] LABS: PLATELET ESTIMATE DECREASED
[2019-08-26 16:00] VITALS: BP 135/97
[2019-08-26 20:00] VITALS: BP 101/47
[2019-08-27] VITALS (8 sets, daily range): BP systolic 89–117; BP diastolic 40–64
[2019-08-27] MEDS: LEVOTHYROXINE SODIUM 112MCG TABLET PO SCH (05:48)
[2019-08-27] MEDS: ASPIRIN 81MG EC TABLET PO SCH (09:42)
[2019-08-27] MEDS: MORPHINE SULFATE 2 MG/ML CPJ (NOT FOR IM USE) IV PRN (21:39)
[2019-08-28] VITALS (8 sets, daily range): BP systolic 91–110; BP diastolic 39–69
[2019-08-28] MEDS: DIPHENHYDRAMINE 50MG/ML VIAL IV PRN ×2 (03:22→17:18)
[2019-08-28] MEDS: LEVOTHYROXINE SODIUM 112MCG TABLET PO SCH (06:02)
[2019-08-28] MEDS: MORPHINE SULFATE 2 MG/ML CPJ (NOT FOR IM USE) IV PRN ×2 (09:18→19:57)
[2019-08-28] MEDS: ASPIRIN 81MG EC TABLET PO SCH (09:18)
[2019-08-28] MEDS: MIDODRINE HCL 5MG TABLET PO SCH ×2 (11:44→17:19)
== END 2019-08-28 21:54 | DRG 291 ==
LOC: ER 01:18 → EDBEDREQ 05:42 → 8WST 06:23 → EDBEDREQ 06:33 → ENRESERV 07:34
PROVIDERS: ADMIT Internal Medicine; ATTEND Internal Medicine
PROC: 5A1D70Z Performance of Urinary Filtration, Intermittent, Less than 6 Hours Per Day (ICD-10-PCS; principal; 2019-08-24)
PROC: 5A1D70Z Performance of Urinary Filtration, Intermittent, Less than 6 Hours Per Day (ICD-10-PCS; 2019-08-26)
PROC: 5A1D70Z Performance of Urinary Filtration, Intermittent, Less than 6 Hours Per Day (ICD-10-PCS; 2019-08-28)
DX: I13.2 Hypertensive heart and chronic kidney disease with heart failure and with stage 5 chronic kidney disease, or end stage renal disease (principal); I50.33 Acute on chronic diastolic (congestive) heart failure; N18.6 End stage renal disease; E46 Unspecified protein-calorie malnutrition; Q61.3 Polycystic kidney, unspecified; D61.818 Other pancytopenia; G40.909 Epilepsy, unspecified, not intractable, without status epilepticus; B19.20 Unspecified viral hepatitis C without hepatic coma; D63.1 Anemia in chronic kidney disease; D69.6 Thrombocytopenia, unspecified; E03.9 Hypothyroidism, unspecified; E11.22 Type 2 diabetes mellitus with diabetic chronic kidney disease; R00.0 Tachycardia, unspecified; K21.9 Gastro-esophageal reflux disease without esophagitis; Z99.2 Dependence on renal dialysis; Z88.5 Allergy status to narcotic agent; Z88.0 Allergy status to penicillin; Z88.8 Allergy status to other drugs, medicaments and biological substances; Z91.041 Radiographic dye allergy status; Z91.040 Latex allergy status; Z79.890 Hormone replacement therapy; Z79.899 Other long term (current) drug therapy; Z83.3 Family history of diabetes mellitus; Z82.5 Family history of asthma and other chronic lower respiratory diseases; Z82.49 Family history of ischemic heart disease and other diseases of the circulatory system; Z95.828 Presence of other vascular implants and grafts; Z68.24 Body mass index [BMI] 24.0-24.9, adult
CPT/HCPCS: 36415; 71045; 80048; 80053; 80061; 82728; 83615; 83880; 84439; 84443; 84484; 85025; 85384; 86140; 93005; 93970; 99285; J1200; J2270

== ENCOUNTER 2019-11-29 09:23 | Inpatient (IN) | payer MEDICARE, MEDICAID ==
[~2019-11-29] VITALS: Ht 162.6 cm; Wt 62.6 kg
[~2019-11-29 09:23] MED LIST changes: -FOLI0.8T23 PO; -HYDR-3282 PO; -KEPP500 PO
[2019-11-29] MEDS ORDERED: MORPHINE SULFATE 4 MG/ML CPJ (NOT FOR IM USE) IV STA (10:26)
[2019-11-29 10:41] LABS: BASOPHILS % 0.6 % (0.0-2.0); EOSINOPHILS % 1.7 % (0.0-5.0); HEMOGLOBIN. 11.2 g/dL (12.0-16.0); LYMPHOCYTES % 28.9 % (20.0-50.0); MEAN CORPUSCULAR HEMOGLOBIN 27.6 pg (28.0-32.0); MEAN CORPUSCULAR VOLUME 83.9 fL (81.0-99.0); MEAN PLATELET VOLUME 8.3 fl (7.4-10.4); MONOCYTES % 12.5 % (2.0-8.0); NEUTROPHILS % 56.3 % (40.0-76.0); PLATELET 100 x1000/uL (130-400); RED BLOOD CELL COUNT 4.05 mill/uL (4.2-5.4); RED CELL DISTRIBUTION WIDTH 16.5 % (11.6-14.6)
[2019-11-29 10:46] LABS: CHLORIDE 99 mEq/L (98-107)
[2019-11-29] MEDS ORDERED: ACETAMINOPHEN 325MG TABLET PO PRN (11:15)
[2019-11-29] MEDS ORDERED: ONDANSETRON HCL 4MG/2ML INJ IV PRN (11:15)
[2019-11-29] MEDS ORDERED: CLONIDINE 0.1MG TABLET PO PRN (11:15)
[2019-11-29] MEDS ORDERED: ENOXAPARIN 40MG/0.4ML SYR SUBCUT SCH (11:15)
[2019-11-29] MEDS: TRAMADOL 50MG TABLET PO PRN ×2 (14:20→22:08)
[2019-11-29] MEDS: HYDRALAZINE HCL 50MG TABLET PO SCH (14:21)
[2019-11-29] MEDS: SEVELAMER CARBONATE 800 MG TABLET PO SCH (14:21)
[2019-11-29] MEDS: ENOXAPARIN 30MG/0.3ML SYR SUBCUT SCH (14:21)
[2019-11-29 19:06] VITALS: BP 134/62
[2019-11-29 20:00] VITALS: BP 147/69
[2019-11-29] MEDS ORDERED: MORPHINE SULFATE 2 MG/ML CPJ (NOT FOR IM USE) IV PRN (22:30)
[2019-11-30] VITALS: BP_SYST 130; BP_SYST 156; BP_DIAS 57; BP_DIAS 77
[2019-11-30] MEDS: MORPHINE SULFATE 2 MG/ML CPJ (NOT FOR IM USE) IV PRN (02:48)
[2019-11-30 04:00] VITALS: BP 136/61
[2019-11-30] MEDS ORDERED: DIPHENHYDRAMINE 50MG/ML VIAL IM PRN (04:00)
[2019-11-30] MEDS: SEVELAMER CARBONATE 800 MG TABLET PO SCH ×3 (07:48→17:57)
[2019-11-30 08:00] VITALS: BP 104/33
[2019-11-30] MEDS: HYDRALAZINE HCL 50MG TABLET PO SCH ×3 (09:00→17:00)
[2019-11-30] MEDS: LEVOTHYROXINE SODIUM 75MCG TABLET PO SCH (09:28)
[2019-11-30 09:39] LABS: BASOPHILS % 0.8 % (0.0-2.0); EOSINOPHILS % 1.1 % (0.0-5.0); HEMATOCRIT. 34.8 % (36.0-48.0); HEMOGLOBIN. 11.2 g/dL (12.0-16.0); LYMPHOCYTES % 21.9 % (20.0-50.0); MEAN CORPUSCULAR HEMOGLOBIN 26.8 pg (28.0-32.0); MEAN CORPUSCULAR VOLUME 82.9 fL (81.0-99.0); MONOCYTES % 12.6 % (2.0-8.0); NEUTROPHILS % 63.6 % (40.0-76.0); PLATELET 102 x1000/uL (130-400); RED BLOOD CELL COUNT 4.19 mill/uL (4.2-5.4)
[2019-11-30 09:51] LABS: CHLORIDE 97 mEq/L (98-107)
[2019-11-30] MEDS ORDERED: REGADENOSON 0.4 MG/5 ML IV ONE ×2 (11:00→12:54)
[2019-11-30 11:54] VITALS: BP 108/42
[2019-11-30] MEDS: ENOXAPARIN 30MG/0.3ML SYR SUBCUT SCH (12:00)
[2019-11-30 16:00] VITALS: BP 127/61
[2019-11-30 20:00] VITALS: BP 143/69
[2019-12-01] VITALS: BP 136/65
[2019-12-01 04:00] VITALS: BP 111/44
[2019-12-01] MEDS: LEVOTHYROXINE SODIUM 75MCG TABLET PO SCH (06:59)
[2019-12-01 08:00] VITALS: BP 108/63
[2019-12-01] MEDS: HYDRALAZINE HCL 50MG TABLET PO SCH ×3 (08:29→17:27)
[2019-12-01] MEDS: SEVELAMER CARBONATE 800 MG TABLET PO SCH ×3 (08:30→17:26)
[2019-12-01 12:00] VITALS: BP 118/62
[2019-12-01] MEDS: ENOXAPARIN 30MG/0.3ML SYR SUBCUT SCH (12:00)
[2019-12-01 13:16] LABS: HEMATOCRIT. 30.2 % (36.0-48.0); HEMOGLOBIN. 9.8 g/dL (12.0-16.0); MEAN CORPUSCULAR VOLUME 83.1 fL (81.0-99.0); MEAN PLATELET VOLUME 8.2 fl (7.4-10.4); PLATELET 105 x1000/uL (130-400); RED BLOOD CELL COUNT 3.63 mill/uL (4.2-5.4); RED CELL DISTRIBUTION WIDTH 16.5 % (11.6-14.6)
[2019-12-01 13:56] LABS: PLATELET ESTIMATE DECREASED
[2019-12-01] MEDS: MORPHINE SULFATE 2 MG/ML CPJ (NOT FOR IM USE) IV PRN ×2 (15:10→23:36)
[2019-12-01 16:00] VITALS: BP 126/49
[2019-12-01 20:00] VITALS: BP 111/53
[2019-12-02] VITALS: BP 122/65
[2019-12-02 04:00] VITALS: BP 138/84
[2019-12-02] MEDS: SEVELAMER CARBONATE 800 MG TABLET PO SCH ×3 (06:24→17:10)
[2019-12-02] MEDS: LEVOTHYROXINE SODIUM 75MCG TABLET PO SCH (06:24)
[2019-12-02 07:05] LABS: HEMATOCRIT. 31.4 % (36.0-48.0); HEMOGLOBIN. 10.3 g/dL (12.0-16.0); MEAN CORPUSCULAR HEMOGLOBIN 27.1 pg (28.0-32.0); MEAN CORPUSCULAR VOLUME 82.5 fL (81.0-99.0); RED BLOOD CELL COUNT 3.81 mill/uL (4.2-5.4); RED CELL DISTRIBUTION WIDTH 16.9 % (11.6-14.6)
[2019-12-02 08:00] VITALS: BP 122/61
[2019-12-02 08:46] LABS: PLATELET 117 x1000/uL (130-400)
[2019-12-02 08:50] LABS: PLATELET ESTIMATE SLIGHTLY DECREASED
[2019-12-02] MEDS: HYDRALAZINE HCL 50MG TABLET PO SCH ×3 (08:52→17:10)
[2019-12-02] MEDS ORDERED: MORPHINE SULFATE 2 MG/ML CPJ (NOT FOR IM USE) IV PRN (09:00)
[2019-12-02] MEDS ORDERED: POTASSIUM CHLORIDE 20MEQ TABLET SR PO ONE (09:00)
[2019-12-02 12:00] VITALS: BP 114/58
[2019-12-02] MEDS: ENOXAPARIN 30MG/0.3ML SYR SUBCUT SCH (12:37)
[2019-12-02 16:00] VITALS: BP 128/56
[2019-12-02] MEDS: TRAMADOL 50MG TABLET PO PRN (16:11)
[2019-12-02 16:13] VITALS: BP 128/56
== END 2019-12-02 18:20 | DRG 205 ==
LOC: ER 09:23 → 5WST 12:17 → EDBEDREQTM 12:20 → EDBEDREQ 12:20 → ENRESERV 15:56
PROVIDERS: ADMIT Internal Medicine; ATTEND Internal Medicine
PROC: 5A1D70Z Performance of Urinary Filtration, Intermittent, Less than 6 Hours Per Day (ICD-10-PCS; principal; 2019-11-29)
PROC: 5A1D70Z Performance of Urinary Filtration, Intermittent, Less than 6 Hours Per Day (ICD-10-PCS; 2019-12-01)
DX: M94.0 Chondrocostal junction syndrome [Tietze] (principal); N18.6 End stage renal disease; I13.2 Hypertensive heart and chronic kidney disease with heart failure and with stage 5 chronic kidney disease, or end stage renal disease; I50.32 Chronic diastolic (congestive) heart failure; I82.501 Chronic embolism and thrombosis of unspecified deep veins of right lower extremity; B15.9 Hepatitis A without hepatic coma; Q61.3 Polycystic kidney, unspecified; R78.81 Bacteremia; R07.9 Chest pain, unspecified; Y04.0XXA Assault by unarmed brawl or fight, initial encounter; D69.6 Thrombocytopenia, unspecified; B19.20 Unspecified viral hepatitis C without hepatic coma; E87.5 Hyperkalemia; E03.9 Hypothyroidism, unspecified; G40.909 Epilepsy, unspecified, not intractable, without status epilepticus; D63.1 Anemia in chronic kidney disease; E78.5 Hyperlipidemia, unspecified; E11.22 Type 2 diabetes mellitus with diabetic chronic kidney disease; Z20.828 Contact with and (suspected) exposure to other viral communicable diseases; B95.62 Methicillin resistant Staphylococcus aureus infection as the cause of diseases classified elsewhere; Z99.2 Dependence on renal dialysis; Z95.828 Presence of other vascular implants and grafts; Z88.1 Allergy status to other antibiotic agents; Z88.5 Allergy status to narcotic agent; Z88.2 Allergy status to sulfonamides; Z88.8 Allergy status to other drugs, medicaments and biological substances; Z79.890 Hormone replacement therapy; Z83.3 Family history of diabetes mellitus; Z82.5 Family history of asthma and other chronic lower respiratory diseases; Z82.49 Family history of ischemic heart disease and other diseases of the circulatory system; Z91.041 Radiographic dye allergy status; Z79.899 Other long term (current) drug therapy
CPT/HCPCS: 36415; 71045; 78452; 80048; 80051; 80053; 83735; 83880; 84443; 84484; 85025; 87635; 93005; 93017; 93970; 99285; A9500; C1893; J1200; J1650; J2270; J2405; J2785

== ENCOUNTER 2020-01-10 01:40 | Inpatient (IN) | payer MEDICARE, MEDICAID ==
[~2020-01-10] VITALS: Ht 162.6 cm; Wt 61.2 kg
[2020-01-10] MEDS ORDERED: ONDANSETRON HCL 4MG/2ML INJ IV STA (01:59)
[2020-01-10] MEDS ORDERED: MORPHINE SULFATE 4 MG/ML CPJ (NOT FOR IM USE) IV STA (01:59)
[2020-01-10 03:11] LABS: BASOPHILS % 0.8 % (0.0-2.0); EOSINOPHILS % 1.5 % (0.0-5.0); HEMATOCRIT. 25.1 % (36.0-48.0); HEMOGLOBIN. 8.1 g/dL (12.0-16.0); LYMPHOCYTES % 27.6 % (20.0-50.0); MEAN CORPUSCULAR HEMOGLOBIN 26.1 pg (28.0-32.0); MEAN CORPUSCULAR VOLUME 80.5 fL (81.0-99.0); MEAN PLATELET VOLUME 8.1 fl (7.4-10.4); MONOCYTES % 12.5 % (2.0-8.0); NEUTROPHILS % 57.6 % (40.0-76.0); PLATELET 153 x1000/uL (130-400); RED BLOOD CELL COUNT 3.12 mill/uL (4.2-5.4); RED CELL DISTRIBUTION WIDTH 18.1 % (11.6-14.6)
[2020-01-10 03:14] LABS: CHLORIDE 93 mEq/L (98-107)
[2020-01-10 08:35] VITALS: BP 143/66
[2020-01-10] MEDS ORDERED: CLONIDINE 0.1MG TABLET PO PRN (09:30)
[2020-01-10] MEDS: LEVOTHYROXINE SODIUM 75MCG TABLET PO SCH (09:45)
[2020-01-10] MEDS: LEVOFLOXACIN 500MG TABLET PO SCH (11:06)
[2020-01-10] MEDS: TRAMADOL 50MG TABLET PO PRN (11:06)
[2020-01-10] MEDS: ENOXAPARIN 30MG/0.3ML SYR SUBCUT SCH (11:07)
[2020-01-10 12:00] VITALS: BP 125/44
[2020-01-10] MEDS: HYDRALAZINE HCL 25MG TABLET PO SCH ×2 (14:10→20:43)
[2020-01-10] MEDS: SEVELAMER CARBONATE 800 MG TABLET PO SCH ×2 (14:10→18:07)
[2020-01-10 16:00] VITALS: BP 123/53
[2020-01-10] MEDS: DIPHENHYDRAMINE 50MG/ML VIAL IV PRN (19:41)
[2020-01-10 20:00] VITALS: BP 144/61
[2020-01-10 23:45] LABS: MEAN CORPUSCULAR HEMOGLOBIN 27.1 pg (28.0-32.0); MEAN CORPUSCULAR VOLUME 80.7 fL (81.0-99.0); PLATELET 157 x1000/uL (130-400); RED BLOOD CELL COUNT 2.47 mill/uL (4.2-5.4)
[2020-01-10 23:51] LABS: HEMOGLOBIN 6.7 g/dL (12.0-16.0)
[2020-01-11] VITALS (35 sets, daily range): BP systolic 119–175; BP diastolic 32–116
[2020-01-11 00:55] LABS: BG CARBOXYHEMOGLOBIN 0.9 % (0.5-1.5); BG DEOXYHEMOGLOBIN 0.3 % (0.0-5.0); BG FRACTION INSPIRED OXYGEN 100; BG HCO3 ACT 22.2 mmol/L (22.0-26.0); BG METHEMOGLOBIN 0.2 % (0.0-1.5); BG OXYGEN SATURATION 99.7 % (92.0-98.5); BG OXYHEMOGLOBIN 98.6 % (94.0-97.0); BG SAMPLE SITE RIGHT RADIAL; BG TOTAL HEMOGLOBIN 6.9 g/dL (12.0-18.0); BG VENT MODE MASK - NRB
[2020-01-11] MEDS: TRAMADOL 50MG TABLET PO PRN ×4 (01:26→23:10)
[2020-01-11] MEDS: HYDRALAZINE HCL 25MG TABLET PO SCH ×3 (06:00→23:03)
[2020-01-11] MEDS: LEVOTHYROXINE SODIUM 75MCG TABLET PO SCH ×2 (07:50→07:51)
[2020-01-11] MEDS: SEVELAMER CARBONATE 800 MG TABLET PO SCH ×3 (07:51→18:20)
[2020-01-11] MEDS: ACETAMINOPHEN 325MG TABLET PO PRN (08:34)
[2020-01-11 09:04] LABS: HEMATOCRIT. 26.5 % (36.0-48.0); HEMOGLOBIN. 8.6 g/dL (12.0-16.0); MEAN CORPUSCULAR HEMOGLOBIN 27.8 pg (28.0-32.0); MEAN CORPUSCULAR VOLUME 86.2 fL (81.0-99.0); MEAN PLATELET VOLUME 8.2 fl (7.4-10.4); PLATELET 145 x1000/uL (130-400); RED BLOOD CELL COUNT 3.08 mill/uL (4.2-5.4); RED CELL DISTRIBUTION WIDTH 17.5 % (11.6-14.6)
[2020-01-11 09:08] LABS: CHLORIDE 103 mEq/L (98-107)
[2020-01-11 09:15] LABS: LDL CHOLESTEROL 25 mg/dL (5-100)
[2020-01-11 09:17] LABS: HDL CHOLESTEROL 77 mg/dL (40-59)
[2020-01-11] MEDS: ENOXAPARIN 30MG/0.3ML SYR SUBCUT SCH (10:00)
[2020-01-11 10:14] LABS: PLATELET ESTIMATE NORMAL
[2020-01-11] MEDS: MORPHINE SULFATE 2 MG/ML CPJ (NOT FOR IM USE) IV PRN ×2 (12:19→21:25)
[2020-01-12] VITALS (89 sets, daily range): BP systolic 64–183; BP diastolic 28–126
[2020-01-12] MEDS: ONDANSETRON HCL 4MG/2ML INJ IV PRN (01:19)
[2020-01-12] MEDS: MORPHINE SULFATE 2 MG/ML CPJ (NOT FOR IM USE) IV PRN ×2 (05:58→11:49)
[2020-01-12] MEDS: HYDRALAZINE HCL 25MG TABLET PO SCH ×3 (06:00→21:13)
[2020-01-12] MEDS ORDERED: DEXTROSE 50% WATER 50ML SYRINGE IV SCH (07:15)
[2020-01-12] MEDS ORDERED: SODIUM BICARBONATE 8.4% 1 MEQ/ML 50ML SYR IV SCH (07:15)
[2020-01-12] MEDS ORDERED: INSULIN REGULAR (HUMULIN R) 300UNITS/3ML VIAL IV SCH (07:20)
[2020-01-12] MEDS: LEVOTHYROXINE SODIUM 75MCG TABLET PO SCH (08:54)
[2020-01-12] MEDS: TRAMADOL 50MG TABLET PO PRN ×2 (08:54→21:12)
[2020-01-12] MEDS: SEVELAMER CARBONATE 800 MG TABLET PO SCH ×2 (08:54→13:20)
[2020-01-12] MEDS ORDERED: LIDOCAINE HCL 1% 20ML VIAL (Pyxis) INJ ONE ×2 (09:01→14:46)
[2020-01-12 09:30] LABS: HEMATOCRIT. 22.9 % (36.0-48.0); HEMOGLOBIN. 7.6 g/dL (12.0-16.0); MEAN CORPUSCULAR HEMOGLOBIN 27.8 pg (28.0-32.0); MEAN CORPUSCULAR VOLUME 84.2 fL (81.0-99.0); MEAN PLATELET VOLUME 8.1 fl (7.4-10.4); PLATELET 174 x1000/uL (130-400); RED BLOOD CELL COUNT 2.73 mill/uL (4.2-5.4)
[2020-01-12 09:39] LABS: INR 1.1; PROTHROMBIN TIME 11.7 sec (9.6-11.0)
[2020-01-12] MEDS: ENOXAPARIN 30MG/0.3ML SYR SUBCUT SCH (10:00)
[2020-01-12] MEDS ORDERED: DILTIAZEM HCL 125 MG in DEXT 5% WATER 100 ML IV SCH (10:00)
[2020-01-12 10:24] LABS: PLATELET ESTIMATE NORMAL
[2020-01-12] MEDS: LEVOFLOXACIN 500MG TABLET PO SCH (11:00)
[2020-01-12] MEDS: DIPHENHYDRAMINE 50MG/ML VIAL IV PRN (11:48)
[2020-01-12 12:30] LABS: BG CARBOXYHEMOGLOBIN 0.5 % (0.5-1.5); BG DEOXYHEMOGLOBIN 0.3 % (0.0-5.0); BG FRACTION INSPIRED OXYGEN 100; BG HCO3 ACT 22.2 mmol/L (22.0-26.0); BG METHEMOGLOBIN 0.2 % (0.0-1.5); BG OXYGEN SATURATION 99.7 % (92.0-98.5); BG PCO2 35.2 mmHg (35.0-45.0); BG PH 7.418 (7.350-7.450); BG PO2 553.2 mmHg (75.0-100.0); BG SAMPLE SITE RIGHT BRACHIAL; BG TOTAL HEMOGLOBIN 8.5 g/dL (12.0-18.0); BG VENT MODE MASK - NRB
[2020-01-12 12:54] LABS: HEMATOCRIT 23.5 % (36.0-48.0); HEMOGLOBIN 7.7 g/dL (12.0-16.0)
[2020-01-12 21:21] LABS: HEMATOCRIT 20.2 % (36.0-48.0); HEMOGLOBIN 6.7 g/dL (12.0-16.0)
[2020-01-12] MEDS ORDERED: SODIUM POLYSTYRENE SULFONATE 15 G/60 ML BOT PO NR (23:30)
[2020-01-13] VITALS (105 sets, daily range): BP systolic 93–179; BP diastolic 27–118
[2020-01-13] MEDS: TRAMADOL 50MG TABLET PO PRN (04:38)
[2020-01-13] MEDS: DIPHENHYDRAMINE 50MG/ML VIAL IV PRN (04:49)
[2020-01-13 05:37] LABS: BASOPHILS % 0.3 % (0.0-2.0); HEMATOCRIT. 25.2 % (36.0-48.0); HEMOGLOBIN. 8.3 g/dL (12.0-16.0); LYMPHOCYTES % 8.4 % (20.0-50.0); MEAN CORPUSCULAR HEMOGLOBIN 27.9 pg (28.0-32.0); MEAN CORPUSCULAR VOLUME 84.6 fL (81.0-99.0); MEAN PLATELET VOLUME 8.1 fl (7.4-10.4); MONOCYTES % 6.2 % (2.0-8.0); NEUTROPHILS % 85.1 % (40.0-76.0); PLATELET 153 x1000/uL (130-400); RED BLOOD CELL COUNT 2.98 mill/uL (4.2-5.4); RED CELL DISTRIBUTION WIDTH 17.1 % (11.6-14.6)
[2020-01-13] MEDS: HYDRALAZINE HCL 25MG TABLET PO SCH ×3 (05:40→22:02)
[2020-01-13 06:02] LABS: PHOSPHORUS 4.9 mg/dL (2.5-4.9)
[2020-01-13] MEDS: MORPHINE SULFATE 2 MG/ML CPJ (NOT FOR IM USE) IV PRN ×3 (07:52→22:02)
[2020-01-13] MEDS: LEVOTHYROXINE SODIUM 75MCG TABLET PO SCH (09:03)
[2020-01-13] MEDS: SEVELAMER CARBONATE 800 MG TABLET PO SCH ×4 (09:03→17:58)
[2020-01-13] MEDS: ONDANSETRON HCL 4MG/2ML INJ IV PRN (09:19)
[2020-01-13] MEDS: ENOXAPARIN 30MG/0.3ML SYR SUBCUT SCH (10:28)
[2020-01-13 11:11] LABS: BASOPHILS % 0.2 % (0.0-2.0); EOSINOPHILS % 0.1 % (0.0-5.0); HEMATOCRIT. 24.6 % (36.0-48.0); HEMOGLOBIN. 8.3 g/dL (12.0-16.0); LYMPHOCYTES % 7.6 % (20.0-50.0); MEAN CORPUSCULAR HEMOGLOBIN 28.4 pg (28.0-32.0); MEAN CORPUSCULAR VOLUME 84.2 fL (81.0-99.0); NEUTROPHILS % 86.1 % (40.0-76.0); PLATELET 153 x1000/uL (130-400); RED BLOOD CELL COUNT 2.92 mill/uL (4.2-5.4); RED CELL DISTRIBUTION WIDTH 17.3 % (11.6-14.6)
[2020-01-13 11:26] LABS: PHOSPHORUS 3.7 mg/dL (2.5-4.9)
[2020-01-13] MEDS: DILTIAZEM HCL 60MG TABLET PO SCH ×2 (13:51→22:01)
[2020-01-13 18:45] LABS: HEMATOCRIT 26.4 % (36.0-48.0); HEMOGLOBIN 8.8 g/dL (12.0-16.0)
[2020-01-14] VITALS (41 sets, daily range): BP systolic 70–153; BP diastolic 25–88
[2020-01-14] MEDS: TRAMADOL 50MG TABLET PO PRN (01:46)
[2020-01-14] MEDS: MORPHINE SULFATE 2 MG/ML CPJ (NOT FOR IM USE) IV PRN (04:56)
[2020-01-14 06:18] LABS: HEMATOCRIT. 24.5 % (36.0-48.0); HEMOGLOBIN. 8.3 g/dL (12.0-16.0); MEAN CORPUSCULAR HEMOGLOBIN 28.8 pg (28.0-32.0); MEAN CORPUSCULAR VOLUME 85.2 fL (81.0-99.0); MEAN PLATELET VOLUME 7.8 fl (7.4-10.4); PLATELET 145 x1000/uL (130-400); RED BLOOD CELL COUNT 2.88 mill/uL (4.2-5.4); RED CELL DISTRIBUTION WIDTH 17.7 % (11.6-14.6)
[2020-01-14] MEDS: DILTIAZEM HCL 60MG TABLET PO SCH ×3 (06:30→21:50)
[2020-01-14] MEDS: HYDRALAZINE HCL 25MG TABLET PO SCH ×3 (06:32→21:49)
[2020-01-14] MEDS: ACETAMINOPHEN 325MG TABLET PO PRN ×2 (07:39→21:50)
[2020-01-14] MEDS: SEVELAMER CARBONATE 800 MG TABLET PO SCH ×3 (07:41→16:52)
[2020-01-14] MEDS: LEVOTHYROXINE SODIUM 75MCG TABLET PO SCH (07:41)
[2020-01-14] MEDS: ENOXAPARIN 30MG/0.3ML SYR SUBCUT SCH (11:26)
[2020-01-14] MEDS: LEVOFLOXACIN 500MG TABLET PO SCH (11:26)
[2020-01-14 14:03] LABS: PLATELET ESTIMATE NORMAL
[2020-01-15] VITALS (12 sets, daily range): BP systolic 95–126; BP diastolic 28–53
[2020-01-15] MEDS: DILTIAZEM HCL 60MG TABLET PO SCH ×3 (06:00→21:02)
[2020-01-15] MEDS: HYDRALAZINE HCL 25MG TABLET PO SCH ×3 (06:49→21:02)
[2020-01-15] MEDS: LEVOTHYROXINE SODIUM 75MCG TABLET PO SCH (06:50)
[2020-01-15] MEDS: SEVELAMER CARBONATE 800 MG TABLET PO SCH ×3 (07:34→16:35)
[2020-01-15] MEDS: ENOXAPARIN 30MG/0.3ML SYR SUBCUT SCH (09:06)
[2020-01-15 11:46] LABS: BASOPHILS % 0.1 % (0.0-2.0); EOSINOPHILS % 0.5 % (0.0-5.0); HEMATOCRIT. 22.6 % (36.0-48.0); HEMOGLOBIN. 7.7 g/dL (12.0-16.0); LYMPHOCYTES % 10.9 % (20.0-50.0); MEAN CORPUSCULAR HEMOGLOBIN 28.7 pg (28.0-32.0); MEAN CORPUSCULAR VOLUME 84.6 fL (81.0-99.0); MEAN PLATELET VOLUME 7.9 fl (7.4-10.4); MONOCYTES % 10.6 % (2.0-8.0); NEUTROPHILS % 77.9 % (40.0-76.0); PLATELET 127 x1000/uL (130-400); RED BLOOD CELL COUNT 2.67 mill/uL (4.2-5.4); RED CELL DISTRIBUTION WIDTH 18.1 % (11.6-14.6)
[2020-01-15] MEDS ORDERED: VANCOMYCIN 1 G PREMIX 200 ML IV SCH (15:00)
[2020-01-15] MEDS: ONDANSETRON HCL 4MG/2ML INJ IV PRN (17:23)
[2020-01-15] MEDS: DIPHENHYDRAMINE 50MG/ML VIAL IV PRN (20:33)
[2020-01-15] MEDS: MORPHINE SULFATE 2 MG/ML CPJ (NOT FOR IM USE) IV PRN (22:28)
[2020-01-16] VITALS (13 sets, daily range): BP systolic 90–149; BP diastolic 40–80
[2020-01-16] MEDS: LEVOTHYROXINE SODIUM 75MCG TABLET PO SCH (05:50)
[2020-01-16] MEDS: HYDRALAZINE HCL 25MG TABLET PO SCH ×3 (05:54→22:20)
[2020-01-16] MEDS: DILTIAZEM HCL 60MG TABLET PO SCH (05:54)
[2020-01-16 06:40] LABS: BASOPHILS % 0.5 % (0.0-2.0); EOSINOPHILS % 0.7 % (0.0-5.0); HEMATOCRIT. 24.4 % (36.0-48.0); HEMOGLOBIN. 8.2 g/dL (12.0-16.0); LYMPHOCYTES % 12.1 % (20.0-50.0); MEAN CORPUSCULAR HEMOGLOBIN 28.2 pg (28.0-32.0); MEAN CORPUSCULAR VOLUME 83.6 fL (81.0-99.0); MEAN PLATELET VOLUME 7.8 fl (7.4-10.4); MONOCYTES % 11.1 % (2.0-8.0); NEUTROPHILS % 75.6 % (40.0-76.0); PLATELET 142 x1000/uL (130-400); RED BLOOD CELL COUNT 2.92 mill/uL (4.2-5.4); RED CELL DISTRIBUTION WIDTH 18.9 % (11.6-14.6)
[2020-01-16] MEDS: SEVELAMER CARBONATE 800 MG TABLET PO SCH ×4 (07:20→17:20)
[2020-01-16] MEDS: ONDANSETRON HCL 4MG/2ML INJ IV PRN (07:45)
[2020-01-16] MEDS: ENOXAPARIN 30MG/0.3ML SYR SUBCUT SCH (09:19)
[2020-01-16] MEDS: MORPHINE SULFATE 2 MG/ML CPJ (NOT FOR IM USE) IV PRN ×2 (09:33→22:15)
[2020-01-16] MEDS: METOPROLOL TARTRATE 25MG TABLET PO SCH ×2 (12:00→20:15)
[2020-01-16] MEDS ORDERED: PHENOL/SODIUM PHENOLATE 1.4% SRPAY 177ML MM ONE (16:45)
[2020-01-16] MEDS: ACETAMINOPHEN 325MG TABLET PO PRN (20:14)
[2020-01-16] MEDS: EPOETIN ALFA-EPBX 10,000 UNIT/ML VIAL SUBCUT SCH (20:16)
[2020-01-17] VITALS (12 sets, daily range): BP systolic 90–144; BP diastolic 39–82
[2020-01-17] MEDS: MORPHINE SULFATE 2 MG/ML CPJ (NOT FOR IM USE) IV PRN ×2 (04:15→15:41)
[2020-01-17] MEDS: PHENOL/SODIUM PHENOLATE 1.4% SRPAY 177ML MM PRN ×3 (04:16→15:38)
[2020-01-17] MEDS: HYDRALAZINE HCL 25MG TABLET PO SCH ×3 (06:33→22:18)
[2020-01-17] MEDS: LEVOTHYROXINE SODIUM 75MCG TABLET PO SCH (06:33)
[2020-01-17 06:45] LABS: HEMATOCRIT. 24.9 % (36.0-48.0); HEMOGLOBIN. 8.3 g/dL (12.0-16.0); MEAN CORPUSCULAR HEMOGLOBIN 27.7 pg (28.0-32.0); MEAN CORPUSCULAR VOLUME 83.3 fL (81.0-99.0); MEAN PLATELET VOLUME 7.7 fl (7.4-10.4); PLATELET 144 x1000/uL (130-400); RED BLOOD CELL COUNT 2.99 mill/uL (4.2-5.4); RED CELL DISTRIBUTION WIDTH 18.7 % (11.6-14.6)
[2020-01-17 07:19] LABS: HEPATITIS B SURFACE ANTIGEN NEGATIVE
[2020-01-17] MEDS: SEVELAMER CARBONATE 800 MG TABLET PO SCH ×3 (07:20→17:20)
[2020-01-17 07:49] LABS: HEPATITIS A AB IGM NEGATIVE (NEGATIVE)
[2020-01-17] MEDS: METOPROLOL TARTRATE 25MG TABLET PO SCH (09:00)
[2020-01-17] MEDS ORDERED: DILTIAZEM HCL 5MG/ML 5ML VIAL IV PRN (09:30)
[2020-01-17] MEDS: DEXT 5%/0.45% NACL 1000ML 1,000 ML IV SCH (09:39)
[2020-01-17] MEDS ORDERED: DILTIAZEM HCL 5MG/ML 5ML VIAL IV SCH (10:00)
[2020-01-17 11:14] LABS: PLATELET ESTIMATE NORMAL
[2020-01-17] MEDS ORDERED: VANCOMYCIN 1250MG in DEXTROSE 5% WATER 250ML IV NR (15:00)
[2020-01-17] MEDS: METRONIDAZOLE 500 MG PREMIX 100 ML IV SCH (15:38)
[2020-01-17] MEDS: DILTIAZEM HCL 5MG/ML 5ML VIAL IV PRN (22:17)
[2020-01-18] VITALS (13 sets, daily range): BP systolic 93–161; BP diastolic 36–71
[2020-01-18] MEDS: MORPHINE SULFATE 2 MG/ML CPJ (NOT FOR IM USE) IV PRN ×2 (01:35→11:58)
[2020-01-18] MEDS: DEXT 5%/0.45% NACL 1000ML 1,000 ML IV SCH (06:30)
[2020-01-18] MEDS: HYDRALAZINE HCL 25MG TABLET PO SCH ×3 (06:31→21:59)
[2020-01-18] MEDS: DILTIAZEM HCL 5MG/ML 5ML VIAL IV PRN (06:33)
[2020-01-18] MEDS: METRONIDAZOLE 500 MG PREMIX 100 ML IV SCH ×2 (06:39→17:37)
[2020-01-18 07:00] LABS: HEMATOCRIT. 25.8 % (36.0-48.0); HEMOGLOBIN. 8.6 g/dL (12.0-16.0); MEAN CORPUSCULAR HEMOGLOBIN 28.3 pg (28.0-32.0); MEAN CORPUSCULAR VOLUME 84.7 fL (81.0-99.0); MEAN PLATELET VOLUME 7.6 fl (7.4-10.4); PLATELET 147 x1000/uL (130-400); RED BLOOD CELL COUNT 3.04 mill/uL (4.2-5.4); RED CELL DISTRIBUTION WIDTH 18.4 % (11.6-14.6)
[2020-01-18 07:10] LABS: T4 FREE 1.3 ng/dL (0.76-1.46)
[2020-01-18] MEDS: SEVELAMER CARBONATE 800 MG TABLET PO SCH ×3 (07:20→16:28)
[2020-01-18 09:50] LABS: NUCLEATED RED BLOOD CELLS 1 /100 WBC
[2020-01-18 09:51] LABS: PLATELET ESTIMATE NORMAL
[2020-01-18] MEDS ORDERED: DIATR MEGLU/DIATRIZOATE SOLN 30ML PO ONE (11:00)
[2020-01-18] MEDS: LEVOTHYROXINE SODIUM 100 MCG/ VIAL IV SCH (11:58)
[2020-01-18] MEDS ORDERED: DILTIAZEM HCL 5MG/ML 10ML VIAL IV SCH (17:49)
[2020-01-18] MEDS: EPOETIN ALFA-EPBX 10,000 UNIT/ML VIAL SUBCUT SCH (21:59)
[2020-01-19] VITALS (15 sets, daily range): BP systolic 96–135; BP diastolic 41–66
[2020-01-19] MEDS: DEXT 5%/0.45% NACL 1000ML 1,000 ML IV SCH ×2 (01:30→21:30)
[2020-01-19] MEDS: MORPHINE SULFATE 2 MG/ML CPJ (NOT FOR IM USE) IV PRN ×3 (01:48→18:29)
[2020-01-19] MEDS: DILTIAZEM HCL 5MG/ML 10ML VIAL IV PRN ×2 (03:23→18:53)
[2020-01-19 06:06] LABS: HEMATOCRIT. 22.7 % (36.0-48.0); HEMOGLOBIN. 7.5 g/dL (12.0-16.0); MEAN CORPUSCULAR HEMOGLOBIN 27.8 pg (28.0-32.0); MEAN CORPUSCULAR VOLUME 83.6 fL (81.0-99.0); MEAN PLATELET VOLUME 7.6 fl (7.4-10.4); PLATELET 122 x1000/uL (130-400); RED BLOOD CELL COUNT 2.71 mill/uL (4.2-5.4); RED CELL DISTRIBUTION WIDTH 18.5 % (11.6-14.6)
[2020-01-19] MEDS: METRONIDAZOLE 500 MG PREMIX 100 ML IV SCH ×2 (07:02→18:29)
[2020-01-19] MEDS: HYDRALAZINE HCL 25MG TABLET PO SCH (07:02)
[2020-01-19] MEDS: SEVELAMER CARBONATE 800 MG TABLET PO SCH ×3 (07:20→17:13)
[2020-01-19] MEDS: LEVOTHYROXINE SODIUM 100 MCG/ VIAL IV SCH (08:38)
[2020-01-19 11:33] LABS: PLATELET ESTIMATE SLIGHTLY DECREASED
[2020-01-19] MEDS: DIPHENHYDRAMINE 50MG/ML VIAL IV PRN (14:35)
[2020-01-19] MEDS ORDERED: GENTAMICIN 80MG PREMIX 100 ML IV SCH (15:00)
[2020-01-20] VITALS (12 sets, daily range): BP systolic 94–110; BP diastolic 44–68
[2020-01-20] MEDS: MORPHINE SULFATE 2 MG/ML CPJ (NOT FOR IM USE) IV PRN ×4 (00:59→22:34)
[2020-01-20] MEDS: METRONIDAZOLE 500 MG PREMIX 100 ML IV SCH ×2 (05:31→17:31)
[2020-01-20 06:46] LABS: BASOPHILS % 0.5 % (0.0-2.0); EOSINOPHILS % 0.4 % (0.0-5.0); HEMATOCRIT. 28.3 % (36.0-48.0); HEMOGLOBIN. 9.4 g/dL (12.0-16.0); LYMPHOCYTES % 11.1 % (20.0-50.0); MEAN CORPUSCULAR VOLUME 86.9 fL (81.0-99.0); MONOCYTES % 14.5 % (2.0-8.0); NEUTROPHILS % 73.5 % (40.0-76.0); PLATELET 113 x1000/uL (130-400); RED BLOOD CELL COUNT 3.26 mill/uL (4.2-5.4); RED CELL DISTRIBUTION WIDTH 18.6 % (11.6-14.6)
[2020-01-20] MEDS: SEVELAMER CARBONATE 800 MG TABLET PO SCH ×3 (07:20→17:08)
[2020-01-20 07:32] LABS: GENTAMICIN RANDOM 1.7 ug/mL
[2020-01-20] MEDS: LEVOTHYROXINE SODIUM 100 MCG/ VIAL IV SCH (08:51)
[2020-01-20] MEDS: DEXT 5%/0.45% NACL 1000ML 1,000 ML IV SCH (09:02)
[2020-01-20] MEDS: CARBAMIDE PEROXIDE 6.5% OTIC SOLN 15ML RIGHT EAR SCH (14:55)
[2020-01-20] MEDS: PHENOL/SODIUM PHENOLATE 1.4% SRPAY 177ML MM PRN (14:56)
[2020-01-20] MEDS: DILTIAZEM HCL 5MG/ML 10ML VIAL IV PRN (15:48)
[2020-01-20] MEDS: EPOETIN ALFA-EPBX 10,000 UNIT/ML VIAL SUBCUT SCH (21:50)
[2020-01-21] VITALS (13 sets, daily range): BP systolic 93–144; BP diastolic 41–75
[2020-01-21] MEDS: DILTIAZEM HCL 5MG/ML 10ML VIAL IV PRN ×2 (03:49→19:24)
[2020-01-21] MEDS: METRONIDAZOLE 500 MG PREMIX 100 ML IV SCH ×2 (06:21→17:38)
[2020-01-21 06:43] LABS: BASOPHILS % 0.5 % (0.0-2.0); EOSINOPHILS % 0.4 % (0.0-5.0); HEMATOCRIT. 30.4 % (36.0-48.0); HEMOGLOBIN. 9.8 g/dL (12.0-16.0); MEAN CORPUSCULAR HEMOGLOBIN 28.3 pg (28.0-32.0); MEAN CORPUSCULAR VOLUME 88.3 fL (81.0-99.0); MEAN PLATELET VOLUME 8.2 fl (7.4-10.4); MONOCYTES % 8.4 % (2.0-8.0); NEUTROPHILS % 81.7 % (40.0-76.0); PLATELET 130 x1000/uL (130-400); RED BLOOD CELL COUNT 3.44 mill/uL (4.2-5.4); RED CELL DISTRIBUTION WIDTH 18.5 % (11.6-14.6)
[2020-01-21] MEDS: SEVELAMER CARBONATE 800 MG TABLET PO SCH ×3 (07:20→17:20)
[2020-01-21] MEDS ORDERED: LIDOCAINE HCL 1% 20ML VIAL (Pyxis) INJ ONE (07:40)
[2020-01-21] MEDS: LEVOTHYROXINE SODIUM 100 MCG/ VIAL IV SCH (08:50)
[2020-01-21] MEDS: CARBAMIDE PEROXIDE 6.5% OTIC SOLN 15ML RIGHT EAR SCH ×2 (08:51→17:39)
[2020-01-21] MEDS ORDERED: SODIUM CHLORIDE 0.9% 250 ML IV ONE (10:30)
[2020-01-21] MEDS ORDERED: DILTIAZEM HCL 5MG/ML 5ML VIAL IV NR (10:30)
[2020-01-21] MEDS ORDERED: GENTAMICIN 80MG PREMIX 100 ML IV NR (14:00)
[2020-01-21] MEDS: DEXT 5%/0.45% NACL 1000ML 1,000 ML IV SCH (17:39)
[2020-01-21] MEDS: MORPHINE SULFATE 2 MG/ML CPJ (NOT FOR IM USE) IV PRN (18:24)
[2020-01-22] VITALS (13 sets, daily range): BP systolic 100–139; BP diastolic 32–96
[2020-01-22] MEDS: DILTIAZEM HCL 5MG/ML 10ML VIAL IV PRN (04:03)
[2020-01-22] MEDS: DIPHENHYDRAMINE 50MG/ML VIAL IV PRN ×2 (04:14→20:17)
[2020-01-22] MEDS: METRONIDAZOLE 500 MG PREMIX 100 ML IV SCH ×2 (05:27→17:16)
[2020-01-22 07:11] LABS: BASOPHILS % 0.6 % (0.0-2.0); EOSINOPHILS % 0.3 % (0.0-5.0); HEMATOCRIT. 26.1 % (36.0-48.0); HEMOGLOBIN. 8.6 g/dL (12.0-16.0); LYMPHOCYTES % 11.2 % (20.0-50.0); MEAN PLATELET VOLUME 8.4 fl (7.4-10.4); MONOCYTES % 7.6 % (2.0-8.0); NEUTROPHILS % 80.3 % (40.0-76.0); PLATELET 118 x1000/uL (130-400); RED BLOOD CELL COUNT 2.97 mill/uL (4.2-5.4); RED CELL DISTRIBUTION WIDTH 19.6 % (11.6-14.6)
[2020-01-22] MEDS: SEVELAMER CARBONATE 800 MG TABLET PO SCH ×3 (07:20→16:41)
[2020-01-22] MEDS: CARBAMIDE PEROXIDE 6.5% OTIC SOLN 15ML RIGHT EAR SCH ×2 (08:50→17:16)
[2020-01-22] MEDS: DEXT 5%/0.45% NACL 1000ML 1,000 ML IV SCH (08:50)
[2020-01-22] MEDS: LEVOTHYROXINE SODIUM 100 MCG/ VIAL IV SCH (08:52)
[2020-01-22] MEDS ORDERED: DILTIAZEM HCL 5MG/ML 5ML VIAL IV NR ×2 (10:15→17:30)
[2020-01-22] MEDS ORDERED: DILTIAZEM HCL 125 MG in DEXT 5% WATER 100 ML IV SCH (12:00)
[2020-01-22] MEDS: PANTOPRAZOLE SODIUM 40 MG/VIAL IV SCH ×2 (12:27→20:17)
[2020-01-22 13:14] LABS: HEMATOCRIT 23.7 % (36.0-48.0); HEMOGLOBIN 7.8 g/dL (12.0-16.0)
[2020-01-22 18:55] LABS: HEMATOCRIT 25.6 % (36.0-48.0); HEMOGLOBIN 8.4 g/dL (12.0-16.0)
[2020-01-22] MEDS: METOCLOPRAMIDE HCL 10MG/2ML VIAL IV SCH (23:46)
[2020-01-23] VITALS (12 sets, daily range): BP systolic 75–158; BP diastolic 35–69
[2020-01-23] MEDS: DIPHENHYDRAMINE 50MG/ML VIAL IV PRN (02:50)
[2020-01-23] MEDS: MORPHINE SULFATE 2 MG/ML CPJ (NOT FOR IM USE) IV PRN ×4 (04:07→23:51)
[2020-01-23] MEDS: METOCLOPRAMIDE HCL 10MG/2ML VIAL IV SCH ×4 (06:00→23:47)
[2020-01-23 07:02] LABS: BASOPHILS % 0.5 % (0.0-2.0); EOSINOPHILS % 0.1 % (0.0-5.0); HEMATOCRIT. 25.9 % (36.0-48.0); HEMOGLOBIN. 8.5 g/dL (12.0-16.0); LYMPHOCYTES % 7.5 % (20.0-50.0); MEAN CORPUSCULAR HEMOGLOBIN 29.1 pg (28.0-32.0); MEAN CORPUSCULAR VOLUME 89.2 fL (81.0-99.0); MEAN PLATELET VOLUME 8.5 fl (7.4-10.4); MONOCYTES % 6.5 % (2.0-8.0); NEUTROPHILS % 85.4 % (40.0-76.0); PLATELET 114 x1000/uL (130-400); RED BLOOD CELL COUNT 2.91 mill/uL (4.2-5.4); RED CELL DISTRIBUTION WIDTH 19.7 % (11.6-14.6)
[2020-01-23] MEDS: SEVELAMER CARBONATE 800 MG TABLET PO SCH ×3 (07:20→16:42)
[2020-01-23 07:24] LABS: GENTAMICIN RANDOM 2.9 ug/mL
[2020-01-23] MEDS: DEXT 5%/0.45% NACL 1000ML 1,000 ML IV SCH (07:33)
[2020-01-23] MEDS ORDERED: DIATR MEGLU/DIATRIZOATE SOLN 120ML ONE ×2 (08:15→12:32)
[2020-01-23] MEDS: CARBAMIDE PEROXIDE 6.5% OTIC SOLN 15ML RIGHT EAR SCH (09:00)
[2020-01-23] MEDS: PANTOPRAZOLE SODIUM 40 MG/VIAL IV SCH ×2 (09:00→20:12)
[2020-01-23] MEDS: LEVOTHYROXINE SODIUM 100 MCG/ VIAL IV SCH (10:45)
[2020-01-23] MEDS ORDERED: AMIODARONE HCL 50MG/ML 3ML VIAL IV ONE (11:30)
[2020-01-23] MEDS ORDERED: AMIODARONE HCL 900 MG in DEXT 5% WATER 482 ML IV ONE (11:30)
[2020-01-23] MEDS ORDERED: GENTAMICIN 80MG PREMIX 100 ML IV SCH (12:00)
[2020-01-23] MEDS ORDERED: AMIODARONE HCL 150 MG in DEXT 5% WATER 100 ML IV SCH (13:00)
[2020-01-23] MEDS: DILTIAZEM HCL 125 MG in DEXTROSE 5% WATER 125 ML IV SCH (14:46)
[2020-01-23 20:41] LABS: HEMATOCRIT 28.8 % (36.0-48.0); HEMOGLOBIN 9.2 g/dL (12.0-16.0)
[2020-01-24] VITALS (12 sets, daily range): BP systolic 103–160; BP diastolic 39–94
[2020-01-24] MEDS: IPRATROPIUM BROMIDE (0.02%) 0.5MG/2.5ML NEB HHN PRN (04:34)
[2020-01-24] MEDS: DEXT 5%/0.45% NACL 1000ML 1,000 ML IV SCH (04:56)
[2020-01-24] MEDS: METOCLOPRAMIDE HCL 10MG/2ML VIAL IV SCH ×4 (05:13→23:47)
[2020-01-24] MEDS: MORPHINE SULFATE 2 MG/ML CPJ (NOT FOR IM USE) IV PRN (06:29)
[2020-01-24 06:45] LABS: HEMATOCRIT. 26.6 % (36.0-48.0); HEMOGLOBIN. 8.4 g/dL (12.0-16.0); MEAN CORPUSCULAR HEMOGLOBIN 28.5 pg (28.0-32.0); MEAN CORPUSCULAR VOLUME 90.4 fL (81.0-99.0); MEAN PLATELET VOLUME 8.7 fl (7.4-10.4); PLATELET 113 x1000/uL (130-400); RED BLOOD CELL COUNT 2.94 mill/uL (4.2-5.4)
[2020-01-24] MEDS: SEVELAMER CARBONATE 800 MG TABLET PO SCH ×3 (07:20→16:59)
[2020-01-24] MEDS: PANTOPRAZOLE SODIUM 40 MG/VIAL IV SCH ×2 (09:27→20:22)
[2020-01-24] MEDS: LEVOTHYROXINE SODIUM 100 MCG/ VIAL IV SCH (09:27)
[2020-01-24 11:59] LABS: HEMATOCRIT 25.2 % (36.0-48.0); HEMOGLOBIN 8.1 g/dL (12.0-16.0)
[2020-01-24 20:05] LABS: PLATELET ESTIMATE DECREASED
[2020-01-24] MEDS: DILTIAZEM HCL 125 MG in DEXTROSE 5% WATER 125 ML IV SCH (20:28)
[2020-01-25] VITALS (56 sets, daily range): BP systolic 67–118; BP diastolic 28–75
[2020-01-25 00:01] LABS: HEMATOCRIT 27.1 % (36.0-48.0); HEMOGLOBIN 8.9 g/dL (12.0-16.0)
[2020-01-25] MEDS ORDERED: VANCOMYCIN 750 MG PREMIX 150 ML IV NR (02:00)
[2020-01-25] MEDS: DEXT 5%/0.45% NACL 1000ML 1,000 ML IV SCH ×2 (02:07→22:55)
[2020-01-25] MEDS: METOCLOPRAMIDE HCL 10MG/2ML VIAL IV SCH ×4 (05:50→23:22)
[2020-01-25 06:24] LABS: BASOPHILS % 0.2 % (0.0-2.0); EOSINOPHILS % 0.1 % (0.0-5.0); HEMOGLOBIN. 7.8 g/dL (12.0-16.0); MEAN CORPUSCULAR HEMOGLOBIN 28.9 pg (28.0-32.0); MEAN CORPUSCULAR VOLUME 89.4 fL (81.0-99.0); MEAN PLATELET VOLUME 9.1 fl (7.4-10.4); MONOCYTES % 6.2 % (2.0-8.0); NEUTROPHILS % 84.5 % (40.0-76.0); PLATELET 97 x1000/uL (130-400); RED BLOOD CELL COUNT 2.69 mill/uL (4.2-5.4); RED CELL DISTRIBUTION WIDTH 20.8 % (11.6-14.6)
[2020-01-25 06:39] LABS: GENTAMICIN RANDOM 5.3 ug/mL
[2020-01-25] MEDS: SEVELAMER CARBONATE 800 MG TABLET PO SCH ×3 (07:20→17:00)
[2020-01-25] MEDS: PANTOPRAZOLE SODIUM 40 MG/VIAL IV SCH ×2 (09:15→22:52)
[2020-01-25] MEDS: LEVOTHYROXINE SODIUM 100 MCG/ VIAL IV SCH (09:15)
[2020-01-25 15:16] LABS: HEMATOCRIT 29.2 % (36.0-48.0); HEMOGLOBIN 9.5 g/dL (12.0-16.0)
[2020-01-25] MEDS: IRON SUCROSE COMPLEX 100 MG/5 ML ML IV SCH (15:21)
[2020-01-25 15:28] LABS: PROTHROMBIN TIME 20.6 sec (9.6-11.0)
[2020-01-25] MEDS ORDERED: SKIN ADHESIVE 0.7 GM EA TOP ONE (15:52)
[2020-01-25] MEDS ORDERED: LIDOCAINE HCL 1% 20ML VIAL (Pyxis) INJ ONE (15:52)
[2020-01-25] MEDS ORDERED: SODIUM CHLORIDE 0.9% INJ 10ML FLUSH IVF ONE (15:52)
[2020-01-25] MEDS ORDERED: BACITRACIN 50,000 UNITS/VIAL ONE ×2 (15:53→19:27)
[2020-01-25] MEDS ORDERED: BUPIVACAINE HCL 0.5% (5MG/ML) 50ML ONE (15:53)
[2020-01-25] MEDS ORDERED: AMIKACIN SULFATE 450 MG in SODIUM CHLORIDE 0.9% 100 ML IV NR ×2 (17:00→18:00)
[2020-01-25] MEDS ORDERED: VANCOMYCIN 500 MG PREMIX 100 ML IV SCH (17:00)
[2020-01-25] MEDS ORDERED: FENTANYL CITRATE/PF 50MCG/ML 2ML VIAL ONE ×2 (17:50→17:59)
[2020-01-25] MEDS ORDERED: ROCURONIUM BROMIDE 10MG/ML VIAL 5ML IV ONE ×2 (17:56→17:59)
[2020-01-25] MEDS ORDERED: MIDAZOLAM HCL 2 MG/2 ML VIAL ONE (17:59)
[2020-01-25] MEDS ORDERED: PROPOFOL 200MG/20ML VIAL IV ONE (17:59)
[2020-01-25] MEDS ORDERED: NEOSTIGMINE METHYLSULFATE 1MG/ML 10 ML VIAL ONE (17:59)
[2020-01-25] MEDS ORDERED: GLYCOPYRROLATE 0.2 MG/ML 2ML VIAL ONE (17:59)
[2020-01-25] MEDS ORDERED: CEFTRIAXONE 1 GM IV ONE (18:16)
[2020-01-25] MEDS ORDERED: VANCOMYCIN HCL 1 GM/VIAL ONE (18:21)
[2020-01-25] MEDS ORDERED: LEVOFLOXACIN 500MG PREMIX 100 ML IV ONE (18:23)
[2020-01-25] MEDS ORDERED: ONDANSETRON HCL 4MG/2ML INJ ONE (18:38)
[2020-01-25] MEDS ORDERED: DEXAMETHASONE 4MG/ML 1ML VIAL ONE (18:38)
[2020-01-25] MEDS ORDERED: ALBUMIN HUMAN 12.5G/250ML (5%) IV ONE (19:27)
[2020-01-25] MEDS ORDERED: PHENYLEPHRINE HCL 10 MG/ML 1ML (IV VIAL) IV ONE (19:46)
[2020-01-25] MEDS ORDERED: EPINEPHRINE 1:1000 1 MG/ML AMP ONE (19:46)
[2020-01-25] MEDS ORDERED: SODIUM CHLORIDE 0.9% 10ML VIAL ONE (19:46)
[2020-01-25] MEDS ORDERED: SODIUM CHLORIDE 0.9% 1,000 ML IV SCH (20:30)
[2020-01-25] MEDS ORDERED: TOTAL PARENTERAL NUTRITION 1,300 ML IV SCH (21:00)
[2020-01-25 21:08] LABS: BG CARBOXYHEMOGLOBIN 0.2 % (0.5-1.5); BG DEOXYHEMOGLOBIN 0.4 % (0.0-5.0); BG FRACTION INSPIRED OXYGEN 100; BG HCO3 ACT 26.8 mmol/L (22.0-26.0); BG METHEMOGLOBIN 0.7 % (0.0-1.5); BG OXYGEN SATURATION 99.6 % (92.0-98.5); BG OXYHEMOGLOBIN 98.7 % (94.0-97.0); BG PCO2 37.8 mmHg (35.0-45.0); BG PH 7.469 (7.350-7.450); BG PO2 455.1 mmHg (75.0-100.0); BG SAMPLE SITE RIGHT RADIAL; BG VENT MODE VENT - AC
[2020-01-25 22:24] LABS: HEMATOCRIT. 28.2 % (36.0-48.0); HEMOGLOBIN. 9.3 g/dL (12.0-16.0); MEAN CORPUSCULAR HEMOGLOBIN 28.2 pg (28.0-32.0); MEAN CORPUSCULAR VOLUME 86.2 fL (81.0-99.0); MEAN PLATELET VOLUME 8.9 fl (7.4-10.4); PLATELET 65 x1000/uL (130-400); RED BLOOD CELL COUNT 3.28 mill/uL (4.2-5.4); RED CELL DISTRIBUTION WIDTH 21.3 % (11.6-14.6)
[2020-01-25 22:48] LABS: NUCLEATED RED BLOOD CELLS 2 /100 WBC; PLATELET ESTIMATE DECREASED
[2020-01-25 23:02] LABS: INR 1.8; PROTHROMBIN TIME 18.2 sec (9.6-11.0)
[2020-01-25] MEDS: PROPOFOL 10MG/ML 100ML 100 ML IV PRN (23:30)
[2020-01-26] VITALS (98 sets, daily range): BP systolic 37–156; BP diastolic 17–102
[2020-01-26 05:34] LABS: HEMATOCRIT. 25.2 % (36.0-48.0); HEMOGLOBIN. 8.1 g/dL (12.0-16.0); MEAN CORPUSCULAR HEMOGLOBIN 28.2 pg (28.0-32.0); MEAN PLATELET VOLUME 9.3 fl (7.4-10.4); PLATELET 81 x1000/uL (130-400); RED BLOOD CELL COUNT 2.86 mill/uL (4.2-5.4); RED CELL DISTRIBUTION WIDTH 22.3 % (11.6-14.6)
[2020-01-26] MEDS: BLOOD SUGAR DIAGNOSTIC STRIP TEST SCH ×4 (06:13→17:46)
[2020-01-26] MEDS: METOCLOPRAMIDE HCL 10MG/2ML VIAL IV SCH ×3 (06:13→17:46)
[2020-01-26] MEDS: MORPHINE SULFATE 4 MG/ML CPJ (NOT FOR IM USE) IV PRN ×2 (06:18→08:34)
[2020-01-26] MEDS: DILTIAZEM HCL 125 MG in DEXTROSE 5% WATER 125 ML IV SCH ×2 (09:13→17:43)
[2020-01-26] MEDS: SEVELAMER CARBONATE 800 MG TABLET PO SCH ×3 (09:20→17:47)
[2020-01-26] MEDS: PANTOPRAZOLE SODIUM 40 MG/VIAL IV SCH ×2 (09:20→21:44)
[2020-01-26] MEDS: IRON SUCROSE COMPLEX 100 MG/5 ML ML IV SCH (09:20)
[2020-01-26] MEDS: PROPOFOL 10MG/ML 100ML 100 ML IV PRN (09:53)
[2020-01-26] MEDS: LEVOTHYROXINE SODIUM 100 MCG/ VIAL IV SCH (10:45)
[2020-01-26 10:46] LABS: NUCLEATED RED BLOOD CELLS 1 /100 WBC
[2020-01-26 10:47] LABS: PLATELET ESTIMATE DECREASED
[2020-01-26] MEDS: PHENYLEPHRINE 100 MG in DEXT 5% WATER 240 ML IV PRN (11:05)
[2020-01-26] MEDS ORDERED: ALBUMIN HUMAN 12.5GM/50ML (25%) IV NR (12:07)
[2020-01-26] MEDS: IPRATROPIUM BROMIDE (0.02%) 0.5MG/2.5ML NEB HHN PRN ×2 (12:11→14:17)
[2020-01-26 13:35] LABS: HEMATOCRIT 30.5 % (36.0-48.0); HEMOGLOBIN 9.9 g/dL (12.0-16.0)
[2020-01-26] MEDS ORDERED: METRONIDAZOLE 500 MG PREMIX 100 ML IV SCH (14:00)
[2020-01-26] MEDS ORDERED: FENTANYL CITRATE/PF 1,000 MCG in SODIUM CHLORIDE 0.9% 80 ML IV PRN (14:15)
[2020-01-26] MEDS: IPRATROPIUM BROMIDE (0.02%) 0.5MG/2.5ML NEB HHN SCH ×2 (16:23→19:59)
[2020-01-26] MEDS: METRONIDAZOLE 500 MG PREMIX 100 ML IV SCH (17:46)
[2020-01-26] MEDS ORDERED: TOTAL PARENTERAL NUTRITION 1,300 ML IV SCH (21:00)
[2020-01-26] MEDS ORDERED: FAT EMULSIONS 500 ML IV SCH (21:00)
[2020-01-26 21:01] LABS: HEMATOCRIT 31.5 % (36.0-48.0); HEMOGLOBIN 9.9 g/dL (12.0-16.0)
[2020-01-27] VITALS (94 sets, daily range): BP systolic 29–129; BP diastolic 16–76
[2020-01-27] MEDS: IPRATROPIUM BROMIDE (0.02%) 0.5MG/2.5ML NEB HHN SCH ×6 (00:15→20:29)
[2020-01-27] MEDS: METOCLOPRAMIDE HCL 10MG/2ML VIAL IV SCH ×5 (00:49→23:54)
[2020-01-27] MEDS: PROPOFOL 10MG/ML 100ML 100 ML IV PRN ×2 (01:11→17:26)
[2020-01-27] MEDS: PHENYLEPHRINE 100 MG in DEXT 5% WATER 240 ML IV PRN ×3 (01:37→18:31)
[2020-01-27 05:57] LABS: HEMATOCRIT. 27.2 % (36.0-48.0); HEMOGLOBIN. 8.9 g/dL (12.0-16.0); LYMPHOCYTES % 8.3 % (20.0-50.0); MEAN CORPUSCULAR HEMOGLOBIN 28.1 pg (28.0-32.0); MEAN CORPUSCULAR VOLUME 86.2 fL (81.0-99.0); MEAN PLATELET VOLUME 9.7 fl (7.4-10.4); MONOCYTES % 6.9 % (2.0-8.0); NEUTROPHILS % 84.8 % (40.0-76.0); RED BLOOD CELL COUNT 3.16 mill/uL (4.2-5.4); RED CELL DISTRIBUTION WIDTH 22.8 % (11.6-14.6)
[2020-01-27] MEDS: BLOOD SUGAR DIAGNOSTIC STRIP TEST SCH ×5 (06:00→23:54)
[2020-01-27] MEDS: METRONIDAZOLE 500 MG PREMIX 100 ML IV SCH ×2 (06:19→18:30)
[2020-01-27 07:05] LABS: PLATELET 42 x1000/uL (130-400)
[2020-01-27] MEDS: DILTIAZEM HCL 125 MG in DEXTROSE 5% WATER 125 ML IV SCH ×2 (07:57→22:57)
[2020-01-27] MEDS: SEVELAMER CARBONATE 800 MG TABLET PO SCH ×3 (09:11→18:20)
[2020-01-27] MEDS: PANTOPRAZOLE SODIUM 40 MG/VIAL IV SCH ×2 (09:11→20:44)
[2020-01-27] MEDS: LEVOTHYROXINE SODIUM 100 MCG/ VIAL IV SCH (09:11)
[2020-01-27] MEDS: IRON SUCROSE COMPLEX 100 MG/5 ML ML IV SCH (09:40)
[2020-01-27] MEDS: TOTAL PARENTERAL NUTRITION 1,300 ML IV SCH (20:44)
[2020-01-27] MEDS: NOREPINEPHRINE 32 MG in DEXT 5% WATER 218 ML IV PRN (23:07)
[2020-01-28] VITALS (93 sets, daily range): BP systolic 29–129; BP diastolic 15–77
[2020-01-28] MEDS: IPRATROPIUM BROMIDE (0.02%) 0.5MG/2.5ML NEB HHN SCH ×6 (00:15→20:36)
[2020-01-28] MEDS ORDERED: PROPOFOL 10MG/ML 100ML 100 ML IV PRN (00:30)
[2020-01-28] MEDS: PHENYLEPHRINE 100 MG in DEXT 5% WATER 240 ML IV PRN ×3 (03:43→23:10)
[2020-01-28 05:26] LABS: HEMATOCRIT. 28.6 % (36.0-48.0); MEAN CORPUSCULAR HEMOGLOBIN 27.8 pg (28.0-32.0); MEAN CORPUSCULAR VOLUME 88.2 fL (81.0-99.0); MEAN PLATELET VOLUME 9.4 fl (7.4-10.4); RED BLOOD CELL COUNT 3.24 mill/uL (4.2-5.4); RED CELL DISTRIBUTION WIDTH 23.3 % (11.6-14.6)
[2020-01-28] MEDS: METOCLOPRAMIDE HCL 10MG/2ML VIAL IV SCH ×3 (05:56→17:18)
[2020-01-28] MEDS: BLOOD SUGAR DIAGNOSTIC STRIP TEST SCH ×3 (05:57→17:25)
[2020-01-28] MEDS: METRONIDAZOLE 500 MG PREMIX 100 ML IV SCH ×2 (05:57→17:19)
[2020-01-28 07:16] LABS: NUCLEATED RED BLOOD CELLS 10 /100 WBC; PLATELET ESTIMATE MARKEDLY DECREASED
[2020-01-28] MEDS: SEVELAMER CARBONATE 800 MG TABLET PO SCH ×3 (08:08→17:25)
[2020-01-28] MEDS: LEVOTHYROXINE SODIUM 100 MCG/ VIAL IV SCH (09:46)
[2020-01-28] MEDS: PANTOPRAZOLE SODIUM 40 MG/VIAL IV SCH ×2 (09:46→20:54)
[2020-01-28] MEDS ORDERED: VANCOMYCIN 750 MG PREMIX 150 ML IV SCH (14:00)
[2020-01-28 14:12] LABS: BG BASE EXCESS -8.5 mmol/L (-2.0-2.0); BG CARBOXYHEMOGLOBIN 3.9 % (0.5-1.5); BG DEOXYHEMOGLOBIN 1.6 % (0.0-5.0); BG FRACTION INSPIRED OXYGEN 50; BG HCO3 ACT 14.6 mmol/L (22.0-26.0); BG OXYGEN SATURATION 98.3 % (92.0-98.5); BG OXYHEMOGLOBIN 94.5 % (94.0-97.0); BG PCO2 23.9 mmHg (35.0-45.0); BG PH 7.404 (7.350-7.450); BG PO2 99.9 mmHg (75.0-100.0); BG SAMPLE SITE RIGHT RADIAL; BG TOTAL HEMOGLOBIN 11.2 g/dL (12.0-18.0); BG TOTAL RESPIRATORY RATE 28 b/min; BG VENT MODE VENT - AC
[2020-01-28] MEDS: PROPOFOL 10MG/ML 100ML 100 ML IV PRN (16:33)
[2020-01-28 19:21] LABS: BG BASE EXCESS -15.7 mmol/L (-2.0-2.0); BG DEOXYHEMOGLOBIN 1.1 % (0.0-5.0); BG FRACTION INSPIRED OXYGEN 50; BG HCO3 ACT 9.5 mmol/L (22.0-26.0); BG OXYGEN SATURATION 98.9 % (92.0-98.5); BG OXYHEMOGLOBIN 94.9 % (94.0-97.0); BG PCO2 20.9 mmHg (35.0-45.0); BG PH 7.274 (7.350-7.450); BG PO2 129.1 mmHg (75.0-100.0); BG SAMPLE SITE ALINE; BG TOTAL HEMOGLOBIN 8.2 g/dL (12.0-18.0); BG VENT MODE VENT - SIMV
[2020-01-28] MEDS ORDERED: SODIUM BICARBONATE 8.4% 1 MEQ/ML 50ML SYR IV NR (20:30)
[2020-01-28] MEDS: TOTAL PARENTERAL NUTRITION 1,300 ML IV SCH (20:54)
[2020-01-28] MEDS: NOREPINEPHRINE 32 MG in DEXT 5% WATER 218 ML IV PRN (23:12)
[2020-01-29] VITALS (60 sets, daily range): BP systolic 7–130; BP diastolic 0–76
[2020-01-29] MEDS: METOCLOPRAMIDE HCL 10MG/2ML VIAL IV SCH ×2 (00:13→07:27)
[2020-01-29] MEDS: IPRATROPIUM BROMIDE (0.02%) 0.5MG/2.5ML NEB HHN SCH ×3 (00:29→08:05)
[2020-01-29] MEDS: BLOOD SUGAR DIAGNOSTIC STRIP TEST SCH (00:39)
[2020-01-29] MEDS: DILTIAZEM HCL 125 MG in DEXTROSE 5% WATER 125 ML IV SCH (00:49)
[2020-01-29] MEDS ORDERED: SODIUM BICARBONATE 8.4% 1 MEQ/ML 50ML SYR IV NR ×2 (01:15→07:03)
[2020-01-29] MEDS ORDERED: PROPOFOL 10MG/ML 100ML 100 ML IV PRN (01:15)
[2020-01-29 06:33] LABS: PLATELET 31 x1000/uL (130-400)
[2020-01-29 06:46] LABS: BG CARBOXYHEMOGLOBIN 5.3 % (0.5-1.5); BG DEOXYHEMOGLOBIN 2.3 % (0.0-5.0); BG FRACTION INSPIRED OXYGEN 50; BG HCO3 ACT 3.8 mmol/L (22.0-26.0); BG OXYGEN SATURATION 97.6 % (92.0-98.5); BG OXYHEMOGLOBIN 92.4 % (94.0-97.0); BG PCO2 20.4 mmHg (35.0-45.0); BG PH 6.893 (7.350-7.450); BG PO2 142.6 mmHg (75.0-100.0); BG SAMPLE SITE ALINE; BG TOTAL HEMOGLOBIN 6.9 g/dL (12.0-18.0); BG VENT MODE VENT - AC
[2020-01-29] MEDS ORDERED: SODIUM BICARBONATE 150 MEQ in DEXTROSE 5% WATER 1,000 ML IV SCH (07:00)
[2020-01-29 07:14] LABS: HEMATOCRIT. 26.8 % (36.0-48.0); HEMOGLOBIN. 7.5 g/dL (12.0-16.0); MEAN CORPUSCULAR HEMOGLOBIN 28.4 pg (28.0-32.0); MEAN CORPUSCULAR VOLUME 100.9 fL (81.0-99.0); MEAN PLATELET VOLUME 6.6 fl (7.4-10.4); RED BLOOD CELL COUNT 2.66 mill/uL (4.2-5.4)
[2020-01-29 07:28] LABS: PLATELET 18 x1000/uL (130-400)
[2020-01-29] MEDS ORDERED: VASOPRESSIN 20 UNIT in SODIUM CHLORIDE 0.9% 99 ML IV PRN (07:45)
[2020-01-29] MEDS ORDERED: BLOOD SUGAR DIAGNOSTIC STRIP TEST SCH (09:00)
[2020-01-29] MEDS ORDERED: SODIUM BICARBONATE 8.4% 1 MEQ/ML 50ML SYR IV ONE (09:08)
[2020-01-29] MEDS ORDERED: EPINEPHRINE 10 MG in SODIUM CHLORIDE 0.9% 240 ML IV PRN (09:15)
[2020-01-29 10:17] LABS: NUCLEATED RED BLOOD CELLS 39 /100 WBC
[2020-01-29 10:22] LABS: PLATELET ESTIMATE MARKEDLY DECREASED
[2020-01-29] MEDS ORDERED: FAT EMULSIONS 500 ML IV SCH (21:00)
[2020-01-30] MEDS ORDERED: FAT EMULSIONS 500 ML IV SCH (21:00)
== END 2020-01-29 09:46 | disposition expired | DRG 264 ==
LOC: ER 02:15 → 8WST 05:45 → ENRESERV 07:55 → 8WST 01-11 01:10 → CVICU 01-11 07:36 → 3WST 01-14 09:05 → CVICU 01-25 20:05
PROVIDERS: ADMIT Internal Medicine Nephrology; ATTEND Internal Medicine Nephrology
PROC: 05HY33Z Insertion of Infusion Device into Upper Vein, Percutaneous Approach (ICD-10-PCS; 2020-01-10)
PROC: B54MZZA Ultrasonography of Right Upper Extremity Veins, Guidance (ICD-10-PCS; 2020-01-10)
PROC: 30233N1 Transfusion of Nonautologous Red Blood Cells into Peripheral Vein, Percutaneous Approach (ICD-10-PCS; principal; 2020-01-24)
PROC: 0DTF0ZZ Resection of Right Large Intestine, Open Approach (ICD-10-PCS; 2020-01-24)
PROC: 0HB7XZZ Excision of Abdomen Skin, External Approach (ICD-10-PCS; 2020-01-24)
PROC: 5A1945Z Respiratory Ventilation, 24-96 Consecutive Hours (ICD-10-PCS; 2020-01-25)
PROC: 0BH18EZ Insertion of Endotracheal Airway into Trachea, Via Natural or Artificial Opening Endoscopic (ICD-10-PCS; 2020-01-25)
PROC: 30233M1 Transfusion of Nonautologous Plasma Cryoprecipitate into Peripheral Vein, Percutaneous Approach (ICD-10-PCS; 2020-01-25)
PROC: 5A1D70Z Performance of Urinary Filtration, Intermittent, Less than 6 Hours Per Day (ICD-10-PCS; 2020-01-26)
PROC: 5A1D70Z Performance of Urinary Filtration, Intermittent, Less than 6 Hours Per Day (ICD-10-PCS; 2020-01-28)
DX: T82.838A Hemorrhage due to vascular prosthetic devices, implants and grafts, initial encounter (principal); J96.01 Acute respiratory failure with hypoxia; N18.6 End stage renal disease; J18.9 Pneumonia, unspecified organism; K55.039 Acute (reversible) ischemia of large intestine, extent unspecified; E43 Unspecified severe protein-calorie malnutrition; T82.590A Other mechanical complication of surgically created arteriovenous fistula, initial encounter; I13.2 Hypertensive heart and chronic kidney disease with heart failure and with stage 5 chronic kidney disease, or end stage renal disease; Q61.3 Polycystic kidney, unspecified; E87.1 Hypo-osmolality and hyponatremia; I50.32 Chronic diastolic (congestive) heart failure; I48.92 Unspecified atrial flutter; I47.1 Supraventricular tachycardia; D61.818 Other pancytopenia; E87.2 Acidosis; K56.699 Other intestinal obstruction unspecified as to partial versus complete obstruction; E87.5 Hyperkalemia; D63.1 Anemia in chronic kidney disease; D69.6 Thrombocytopenia, unspecified; E03.9 Hypothyroidism, unspecified; E83.41 Hypermagnesemia; G40.909 Epilepsy, unspecified, not intractable, without status epilepticus; B19.20 Unspecified viral hepatitis C without hepatic coma; E78.5 Hyperlipidemia, unspecified; H66.90 Otitis media, unspecified, unspecified ear; I48.0 Paroxysmal atrial fibrillation; E11.22 Type 2 diabetes mellitus with diabetic chronic kidney disease; K74.60 Unspecified cirrhosis of liver; I25.10 Atherosclerotic heart disease of native coronary artery without angina pectoris; I35.0 Nonrheumatic aortic (valve) stenosis; K52.9 Noninfective gastroenteritis and colitis, unspecified; L72.3 Sebaceous cyst; K63.5 Polyp of colon; Y82.8 Other medical devices associated with adverse incidents; Y83.8 Other surgical procedures as the cause of abnormal reaction of the patient, or of later complication, without mention of misadventure at the time of the procedure; Z66 Do not resuscitate; Z20.828 Contact with and (suspected) exposure to other viral communicable diseases; Z79.890 Hormone replacement therapy; Z82.49 Family history of ischemic heart disease and other diseases of the circulatory system; Z88.0 Allergy status to penicillin; Z95.828 Presence of other vascular implants and grafts; Z99.2 Dependence on renal dialysis; Z82.5 Family history of asthma and other chronic lower respiratory diseases; Z86.718 Personal history of other venous thrombosis and embolism; Z83.3 Family history of diabetes mellitus; Z91.041 Radiographic dye allergy status; Z88.5 Allergy status to narcotic agent; Z88.8 Allergy status to other drugs, medicaments and biological substances; Z68.23 Body mass index [BMI] 23.0-23.9, adult; Y92.89 Other specified places as the place of occurrence of the external cause; Z79.899 Other long term (current) drug therapy
CPT/HCPCS: 36415; 36600; 71045; 71250; 74018; 74176; 74250; 76700; 76937; 80048; 80053; 80061; 80150; 80170; 80202; 82270; 82375; 82728; 82805; 82962; 83540; 83550; 83735; 83880; 84100; 84132; 84439; 84443; 84478; 84484; 85014; 85018; 85025; 85027; 85049; 85384; 86705; 86709; 86803; 86850; 86900; 86920; 86927; 87070; 87340; 87426; 88304; 88307; 93005; 93970; 93971; 94002; 94640; 97162; 97166; 97530; 97535; 99285; A6261; C1725; C1893; C9113; J0278; J0282; J0696; J0885; J1100; J1200; J1580; J1650; J1815; J1956; J2250; J2270; J2370; J2405; J2704; J2710; J2765; J3010; J3370; J3490; J7040; J7050; J7060; J7070; P9016; P9017; P9041; P9047; Q9963